=== PATIENT | female | born 1935 | race Caucasian/White ===

== ENCOUNTER 2017-11-03 11:44 | Inpatient (IN) ==
[2017-11-03] MEDS ORDERED: Pantoprazole Inj 40 MG Vial IV.PUSH ONE (12:10)
[2017-11-03] MEDS ORDERED: Sod Chloride 0.9% Inj 1,000 ML IV.SIG ONE ×2 (12:10→12:56)
--- NOTE | 2017-11-03 12:53 | ED ---
HPI General Chief Complaint: Altered Mental Status Stated Complaint: Medical Time Seen by Provider: 11/03/17 11:59 History of Present Illness HPI narrative: Patient presents to the emergency department for altered mental status. Family her son spoke to her this morning and she was complaining of shortness of breath. He called 911 and when EVAC arrived on the scene she was altered and confused in the back of her dressings covered in blood. Initially her vital signs showed sinus tach at 104, BP 126/100, she was noted to be pale and confused per EVAC. States that she said that she had difficulty finding her words and was feeling short of breath. In route they noted that she developed A. fib with RVR and questionable facial droop. Patient told them that she "lost a lot of blood in the toilet." She denies chest pain, shortness of breath, headache, but states chronic abdominal pain to me. She denies being on aspirin or a blood thinner. Related Data Home Medications Medication Instructions Recorded Confirmed No Known Home Medications 11/03/17 11/03/17 Allergies Allergy/AdvReac Type Severity Reaction Status Date / Time ANESTHESIA AdvReac Severe Sedation Uncoded 08/11/10 10:55 Review of Systems ROS: all other systems reviewed are negative [facility] Social History Social History Substance History: No History of Abuse Smoking Status: Former smoker Tobacco Type: Cigarettes How Often Do You Have a Drink Containing Alcohol: Monthly or less Recent Travel in [facility] within the Last 8 Weeks: No Recent Out of Country Travel within the Last 8 Weeks: No Immunization History Tetanus Immunization: Unsure Hx Influenza Vaccine This Season: Unable to Assess Exam Narrative Exam Narrative: GENERAL: No acute distress. SKIN: Focused skin assessment warm/dry. HEAD: Atraumatic. Normocephalic. EYES: Pupils equal and round. No scleral icterus. No injection or drainage. ENT: No nasal bleeding or discharge. Mucous membranes pink and moist. NECK: Trachea midline. No JVD. CARDIOVASCULAR: Irregular. No murmur appreciated. RESPIRATORY: No accessory muscle use. Clear to auscultation. Breath sounds equal bilaterally. GASTROINTESTINAL: Abdomen soft, diffusely tender, nondistended. Rectal: Bright red blood, Hemoccult positive MUSCULOSKELETAL: No obvious deformities. No clubbing. No cyanosis. No edema. Right lower extremity tender to palpation thigh area. NEUROLOGICAL: Awake and alert, oriented to person, place, but does not know the year but advises that Kasandra is president. No obvious cranial nerve deficits. Motor grossly within normal limits. Normal speech. Stroke scale of 2 (mild sensory loss left face, mild dysarthria PSYCHIATRIC: Appropriate mood and affect; insight and judgment normal. Course Initial Documented Vital Signs Temperature 97.3 F L 11/03/17 12:05 Pulse Rate 184 H 11/03/17 12:05 Respiratory Rate 31 H 11/03/17 12:05 Blood Pressure 122/75 11/03/17 12:05 Pulse Oximetry 100 11/03/17 12:05 Last Documented Vital Signs Temperature 97.3 F L 11/03/17 12:05 Pulse Rate 86 11/03/17 15:00 Respiratory Rate 12 11/03/17 15:00 Blood Pressure 180/81 H 11/03/17 15:00 Pulse Oximetry 100 11/03/17 15:00 Critical Care Time Critical Care Time: Yes Total Critical Care Time: 30 Attestation: Aggregate critical care time was 30 minutes. Time to perform other separately billable procedures was not included in the critical care time. My time did not include minutes spent treating any other patients simultaneously or on activities that did not directly contribute to the patient's treatment. The services I provided to this patient were to treat and/or prevent clinically significant deterioration that could result in: , respiratory failure, cardiac arrest, increased morbidity I provided critical care services requiring my management, as noted below: Chart data review, documentation time, medication orders and management, vital sign assessments/reviewing monitor data, ordering and reviewing lab tests, ordering and interpreting/reviewing x-rays and diagnostic studies, care of the patient and discussion of the patient with the admitting physicians. Medical Decision Making MDM Narrative Medical decision making narrative: Patient presents to the emergency department as GI bleed and altered mental status and atrial flutter with RVR placed on cardiac sonographer, continuous pulse ox, and IV access obtained liter IV normal saline 1L bolus x 2. Labs, EKG, chest x-ray, head and abdominal CT ordered. Additionally, patient given 40 mg IV Protonix and typed and screened. Patient was written for diltiazem, but heart rate spontaneously decreased to high 90s, low 100s without it. Labs: elevated d-dimer, decreased hgb/HCT, slight increase in wbc, slight increase in PT, decrease in PTT; elevated troponin, lactic acid, BNP CXR: CONCLUSION: 1. Mild patchy airspace disease in the left lower lung zone which may be projectional or reflect atelectasis. bilat LE u/s- Negative for DVT CTA abd/pelvis-CONCLUSION 1. I do not see etiology patient's diffuse abdominal pain. There are no inflammatory changes evident.2. Extensive vascular callus occasions are noted without evidence for ischemic bowel.3. There is no free fluid4. 4.8 cm left renal cyst5. Diverticulitis sigmoid colon without diverticulitis6. Moderate congestive failure CT head: CONCLUSION:1. 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 Stroke could be similar between 3 and 7 days in age.2. I have no prior studies for comparison. CTA chest: There is cardiomegaly with mild interstitial edema and trace left pleural effusion.There is abundant mediastinal fat. There is no adenopathy.There is no central pulmonary emboliThere is no axillary adenopathy. Upper pelvic contents are grossly unremarkable.CONCLUSION:1. Moderate congestive failure with no central pulmonary emboli ECHO: See ECHO results-The left ventricular systolic function is normal with an estimated ejection fraction in the range of 60-65%. 1326: GI environmental engineering assistant consulted. Start protonix gtt at 8mg/hr, keep NPO, type and screen Medical Screen Exam Complete: Yes Emergency Medical Condition: Yes Differential Diagnosis Differential Diagnosis: ACS, PE, diverticular bleed, upper GI bleed/lower GI bleed, sepsis, electrolyte abnormality, anemia Lab Data Result diagrams: 11/03/17 12:24 11/03/17 12:24 Lab Results 11/03/17 11/03/17 11/03/17 Range/Units 12:24 12:24 12:24 WBC 11.1 H (4.0-11.0) th/mm3 RBC 3.30 L (4.00-5.30) mil/mm3 Hgb 10.1 L (11.6-15.3) gm/dL Hct 30.0 L (35.0-46.0) % MCV 90.9 (80.0-100.0) fL MCH 30.8 (27.0-34.0) pg MCHC 33.8 (32.0-36.0) % RDW 14.5 (11.6-17.2) % Plt Count 208 (150-450) th/mm3 MPV 9.4 (7.0-11.0) fL Neut % (Auto) 89.9 H (16.0-70.0) % Lymph % (Auto) 7.1 L (9.0-44.0) % Todd % (Auto) 2.6 (0.0-8.0) % Eos % (Auto) 0.0 (0.0-4.0) % Baso % (Auto) 0.4 (0.0-2.0) % Neut # (Auto) 10.0 H (1.8-7.7) th/mm3 Lymph # (Auto) 0.8 L (1.0-4.8) th/mm3 Todd # (Auto) 0.3 (0.0-0.9) th/mm3 Eos # (Auto) 0.0 (0.0-0.4) th/mm3 Baso # (Auto) 0.0 (0.0-0.2) th/mm3 WBC Differential . Differential Comment Auto diff final PT 12.3 H (9.8-11.6) sec INR 1.2 Ratio APTT 19.2 L (24.3-30.1) sec D-Dimer Quant (PE/DVT) (0.00-0.50) mg/L FEU Sodium 148 H (136-145) meq/L Potassium 4.5 (3.5-5.1) meq/L Chloride 113 H (98-107) meq/L Carbon Dioxide 24.0 (21.0-32.0) meq/L Anion Gap 11 (5-15) meq/L BUN 46 H (7-18) mg/dL Creatinine 0.85 (0.50-1.00) mg/dL Estimated GFR 64 L (>89) mL/min Random Glucose 129 H (74-106) mg/dL Lactic Acid (0.4-2.0) mmol/L Calcium 8.1 L (8.5-10.1) mg/dL Magnesium 2.1 (1.5-2.5) mg/dL Total Bilirubin 0.4 (0.2-1.0) mg/dL AST 11 L (15-37) U/L ALT 13 (10-53) U/L Alkaline Phosphatase 46 (45-117) U/L Total Creatine Kinase 30 (26-192) U/L Troponin I 0.11 H (0.02-0.05) ng/mL B-Natriuretic Peptide (0-100) pg/mL Total Protein 5.7 L (6.4-8.2) g/dL Albumin 2.8 L (3.4-5.0) g/dL TSH 1.170 (0.358-3.740) uIU/mL Free T4 1.02 (0.76-1.46) ng/dL Blood Type Antibody Screen 11/03/17 11/03/17 11/03/17 Range/Units 12:24 12:24 12:24 WBC (4.0-11.0) th/mm3 RBC (4.00-5.30) mil/mm3 Hgb (11.6-15.3) gm/dL Hct (35.0-46.0) % MCV (80.0-100.0) fL MCH (27.0-34.0) pg MCHC (32.0-36.0) % RDW (11.6-17.2) % Plt Count (150-450) th/mm3 MPV (7.0-11.0) fL Neut % (Auto) (16.0-70.0) % Lymph % (Auto) (9.0-44.0) % Todd % (Auto) (0.0-8.0) % Eos % (Auto) (0.0-4.0) % Baso % (Auto) (0.0-2.0) % Neut # (Auto) (1.8-7.7) th/mm3 Lymph # (Auto) (1.0-4.8) th/mm3 Todd # (Auto) (0.0-0.9) th/mm3 Eos # (Auto) (0.0-0.4) th/mm3 Baso # (Auto) (0.0-0.2) th/mm3 WBC Differential Differential Comment PT (9.8-11.6) sec INR Ratio APTT (24.3-30.1) sec D-Dimer Quant (PE/DVT) (0.00-0.50) mg/L FEU Sodium (136-145) meq/L Potassium (3.5-5.1) meq/L Chloride (98-107) meq/L Carbon Dioxide (21.0-32.0) meq/L Anion Gap (5-15) meq/L BUN (7-18) mg/dL Creatinine (0.50-1.00) mg/dL Estimated GFR (>89) mL/min Random Glucose (74-106) mg/dL Lactic Acid 3.5 H (0.4-2.0) mmol/L Calcium (8.5-10.1) mg/dL Magnesium (1.5-2.5) mg/dL Total Bilirubin (0.2-1.0) mg/dL AST (15-37) U/L ALT (10-53) U/L Alkaline Phosphatase (45-117) U/L Total Creatine Kinase (26-192) U/L Troponin I (0.02-0.05) ng/mL B-Natriuretic Peptide 256 H (0-100) pg/mL Total Protein (6.4-8.2) g/dL Albumin (3.4-5.0) g/dL TSH (0.358-3.740) uIU/mL Free T4 (0.76-1.46) ng/dL Blood Type A Positive Antibody Screen Negative 11/03/17 Range/Units 12:24 WBC (4.0-11.0) th/mm3 RBC (4.00-5.30) mil/mm3 Hgb (11.6-15.3) gm/dL Hct (35.0-46.0) % MCV (80.0-100.0) fL MCH (27.0-34.0) pg MCHC (32.0-36.0) % RDW (11.6-17.2) % Plt Count (150-450) th/mm3 MPV (7.0-11.0) fL Neut % (Auto) (16.0-70.0) % Lymph % (Auto) (9.0-44.0) % Todd % (Auto) (0.0-8.0) % Eos % (Auto) (0.0-4.0) % Baso % (Auto) (0.0-2.0) % Neut # (Auto) (1.8-7.7) th/mm3 Lymph # (Auto) (1.0-4.8) th/mm3 Todd # (Auto) (0.0-0.9) th/mm3 Eos # (Auto) (0.0-0.4) th/mm3 Baso # (Auto) (0.0-0.2) th/mm3 WBC Differential Differential Comment PT (9.8-11.6) sec INR Ratio APTT (24.3-30.1) sec D-Dimer Quant (PE/DVT) 8.46 H (0.00-0.50) mg/L FEU Sodium (136-145) meq/L Potassium (3.5-5.1) meq/L Chloride (98-107) meq/L Carbon Dioxide (21.0-32.0) meq/L Anion Gap (5-15) meq/L BUN (7-18) mg/dL Creatinine (0.50-1.00) mg/dL Estimated GFR (>89) mL/min Random Glucose (74-106) mg/dL Lactic Acid (0.4-2.0) mmol/L Calcium (8.5-10.1) mg/dL Magnesium (1.5-2.5) mg/dL Total Bilirubin (0.2-1.0) mg/dL AST (15-37) U/L ALT (10-53) U/L Alkaline Phosphatase (45-117) U/L Total Creatine Kinase (26-192) U/L Troponin I (0.02-0.05) ng/mL B-Natriuretic Peptide (0-100) pg/mL Total Protein (6.4-8.2) g/dL Albumin (3.4-5.0) g/dL TSH (0.358-3.740) uIU/mL Free T4 (0.76-1.46) ng/dL Blood Type Antibody Screen Imaging Data Radiologist's impression: Chest X-Ray 11/03/17 12:08 CONCLUSION: 1. Mild patchy airspace disease in the left lower lung zone which may be projectional or reflect atelectasis. Head CT 11/03/17 12:08 CONCLUSION: 1. 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 Stroke could be similar between 3 and 7 days in age. 2. I have no prior studies for comparison. Venous Doppler Study 11/03/17 12:12 CONCLUSION: 1. The study is negative for bilateral lower extremity deep venous thrombosis. Chest CTA 11/03/17 13:37 CONCLUSION: 1. Moderate congestive failure with no central pulmonary emboli ECG Data Attestation: I personally reviewed and interpreted this ECG as follows: (Rate approximately 150, normal axis ST depression leads to, V3 through V6, T-wave inversion in lead aVL) Discharge Plan Discharge Disposition Patient Disposition: 30 Still Patient Discharge Condition Condition: Critical Discharge Details Diagnosis: Altered mental state, Lower GI bleed, Lactic acidosis, Atrial fibrillation with rapid ventricular response Physicians Team ED Provider: Marcelle Lozano Primary Care Provider: SRINIVAS, Attending Provider: Celeste Gordillo Other Providers: Aleksey Cortez ; Wilfred Vasquez Discharge Interventions Interventions: Vital Signs Last Done: 11/03/17 15:00 Status ED Status: Admitted Patient
[2017-11-03 12:58] LABS: Baso % (Auto) 0.4 % (0.0-2.0); Hemoglobin 10.1 gm/dL (11.6-15.3); Lymph # (Auto) 0.8 th/mm3 (1.0-4.8); Lymph % (Auto) 7.1 % (9.0-44.0); Mean Corpuscular HGB Conc 33.8 % (32.0-36.0); Mean Corpuscular Hemoglobin 30.8 pg (27.0-34.0); Mean Corpuscular Volume 90.9 fL (80.0-100.0); Mean Platelet Volume 9.4 fL (7.0-11.0); Mono # (Auto) 0.3 th/mm3 (0.0-0.9); Mono % (Auto) 2.6 % (0.0-8.0); Neut % (Auto) 89.9 % (16.0-70.0); Platelet Count 208 th/mm3 (150-450); Red Cell Distribution Width 14.5 % (11.6-17.2); White Blood Count 11.1 th/mm3 (4.0-11.0)
--- NOTE | 2017-11-03 13:05 | US ---
EXAM DATE: 11/03/2017 12:59 PM EDT AGE/SEX: 81 years / Female INDICATIONS: Bilateral leg swelling. CLINICAL DATA: This is the patient's initial encounter. Patient reports that signs and symptoms have been present for 1 month and indicates a pain score of 4/10. MEDICAL/SURGICAL HISTORY: . Cerebrovascular accident. Transient ischemic attack. . Hip replace ment. COMPARISON: No prior exams available for comparison. TECHNIQUE: Venous ultrasound of both lower extremities was performed from the inguinal ligament to t he proximal calf. Real-time, color Doppler and spectral tracing, compression and augmentation techni ques were used. FINDINGS: Right Leg: Normal compression of the deep venous system from the inguinal region to the proximal isaura f. No echogenic clot is seen. Normal response of the venous system to augmentation and respiration. Left Leg: Normal compression of the deep venous system from the inguinal region to the proximal calf . No echogenic clot is seen. Normal response of the venous system to augmentation and respiration. Other: None. CONCLUSION: 1. The study is negative for bilateral lower extremity deep venous thrombosis. Electronically signed by: Franki Dickey MD 11/03/2017 1:04 PM EDT
--- NOTE | 2017-11-03 13:05 | XR ---
EXAM DATE: 11/03/2017 12:31 PM EDT AGE/SEX: 81 years / Female INDICATIONS: Chest pain. Rectal bleeding. CLINICAL DATA: This is the patient's initial encounter. Patient reports that signs and symptoms have been present for 1 day and indicates a pain score of 3/10. MEDICAL/SURGICAL HISTORY: None. None. COMPARISON: [facility] – [place], CHEST SINGLE AP, 08/12/2010. . FINDINGS: Diffuse interstitial prominence with patchy airspace disease in the left lower lung zone. Cardiac med iastinal contours are stable given differences in technique. Osseous structures are intact. CONCLUSION: 1. Mild patchy airspace disease in the left lower lung zone which may be projectional or reflect ate lectasis. Electronically signed by: Fili Napoles MD 11/03/2017 1:04 PM EDT
[2017-11-03 13:17] LABS: Activated Partial Thrombo Time 19.2 sec (24.3-30.1); INR 1.2 Ratio; Prothrombin Time 12.3 sec (9.8-11.6)
[2017-11-03 13:30] LABS: Alanine Aminotransferase 13 U/L (10-53); Albumin 2.8 g/dL (3.4-5.0); Anion Gap 11 meq/L (5-15); Aspartate Aminotransferase 11 U/L (15-37); Blood Urea Nitrogen 46 mg/dL (7-18); Calcium 8.1 mg/dL (8.5-10.1); Chloride 113 meq/L (98-107); Glomerular Filtration Rate 64 mL/min (>89); Glucose,Random 129 mg/dL (74-106); Magnesium 2.1 mg/dL (1.5-2.5); Potassium 4.5 meq/L (3.5-5.1); Sodium 148 meq/L (136-145)
[2017-11-03 13:39] LABS: Alkaline Phosphatase 46 U/L (45-117); Free T4 (Free Thyroxine) 1.02 ng/dL (0.76-1.46); Total Protein 5.7 g/dL (6.4-8.2); Troponin I 0.11 ng/mL (0.02-0.05)
--- NOTE | 2017-11-03 13:58 | CT ---
EXAM DATE: 11/03/2017 1:51 PM EDT AGE/SEX: 81 years / Female INDICATIONS: Patient found confused and covered in blood and feces CLINICAL DATA: This is the patient's initial encounter. Patient reports that signs and symptoms have been present for 1 day and indicates a pain score of 3/10. MEDICAL/SURGICAL HISTORY: Cerebrovascular disease. None. RADIATION DOSE: 48.30 CTDI (mGy) COMPARISON: [facility] [place], CTA BRAIN W 3D RECON, 08/12/2010. . TECHNIQUE: CT of the head without contrast. Using automated exposure control and adjustment of the mA and/or kV according to patient size, radiation dose was kept as low as reasonably achievable to ob tain optimal diagnostic quality images. DICOM format image data is available electronically for revi ew and comparison. FINDINGS: Calcified mass is seen in the parafalcine region on the left. There is some edema in the left orbital frontal region. This edema extends into the head of the caudate. Right hemisphere is unremarkable. V entricular size is appropriate There are no extra-axial fluid collections appreciated. Posterior fossa appears normal. CONCLUSION: 1. 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 Stroke could be similar between 3 and 7 days in age. 2. I have no prior studies for comparison. Electronically signed by: Dayton Torres MD 11/03/2017 1:57 PM EDT
[2017-11-03 14:05] LABS: Creatine Kinase 30 U/L (26-192)
--- NOTE | 2017-11-03 14:13 | CT ---
EXAM DATE: 11/03/2017 2:10 PM EDT AGE/SEX: 81 years / Female INDICATIONS: Shortness of breath. CLINICAL DATA: This is the patient's initial encounter. Patient reports that signs and symptoms have been present for 1 day and indicates a pain score of Nonresponsive. MEDICAL/SURGICAL HISTORY: Stroke. Transient ischemic attack. None. RADIATION DOSE: 17.05 CTDI (mGy) COMPARISON: No prior exams available for comparison. TECHNIQUE: Volumetric scanning was performed using a multi-row detector CT scanner during bolus infu kristan of 85 ml Omnipaque 350 (iohexol) nonionic water-soluble contrast as a cumulative dose for multi ple exams. The data was post processed with a variety of visualization algorithms including full volu me maximum intensity projection and sliding thin slab reformation. Using automated exposure control a nd adjustment of the mA and/or kV according to patient size, radiation dose was kept as low as reason ably achievable to obtain optimal diagnostic quality images. DICOM format image data is available el ectronically for review and comparison. FINDINGS: There is cardiomegaly with mild interstitial edema and trace left pleural effusion. There is abundant mediastinal fat. There is no adenopathy. There is no central pulmonary emboli There is no axillary adenopathy. Upper pelvic contents are grossly unremarkable. CONCLUSION: 1. Moderate congestive failure with no central pulmonary emboli Electronically signed by: Dayton Torres MD 11/03/2017 2:12 PM EDT
--- NOTE | 2017-11-03 14:23 | CT ---
EXAM DATE: 11/03/2017 2:13 PM EDT AGE/SEX: 81 years / Female INDICATIONS: Diffuse abdomen pain today. CLINICAL DATA: This is the patient's initial encounter. Patient reports that signs and symptoms have been present for 1 day and indicates a pain score of Nonresponsive. MEDICAL/SURGICAL HISTORY: Stroke. Transient ischemic attack. None. ORAL CONTRAST: No oral contrast ingested. RADIATION DOSE: 12.40 CTDI (mGy) COMPARISON: No prior exams available for comparison. TECHNIQUE: Multiple contiguous axial images were obtained through the abdomen and pelvis following b olus infusion of 85 ml Omnipaque 350 (iohexol) nonionic water-soluble contrast as a cumulative dose for multiple exams. No oral contrast ingested. Using automated exposure control and adjustment of t he mA and/or kV according to patient size, radiation dose was kept as low as reasonably achievable to obtain optimal diagnostic quality images. DICOM format image data is available electronically for r eview and comparison. FINDINGS: Moderate interstitial edema is present with cardiomegaly and trace left pleural effusion. There is no pericardial effusion. The liver and gallbladder unremarkable Extensive vascular calcifications occasions are noted without evidence for ischemic bowel. . Pancreas and spleen appear normal Adrenal glands appear normal Right kidney: Symmetrical renal function without stone or mass Left kidney: 4.8 cm left renal cyst. There are no inflammatory changes in the mesentery The portion of the colon the abdomen appears unremarkable. In the pelvis there are scattered diverticuli in the sigmoid colon without inflammatory changes. Ther e is no free fluid. Bladder is unremarkable. There is no free air or free fluid. Review of bone windows reveals degenerative changes in the lower lumbar spine. Total hip arthroplasty present on the right. CONCLUSION 1. I do not see etiology patient's diffuse abdominal pain. There are no inflammatory changes evident . 2. Extensive vascular callus occasions are noted without evidence for ischemic bowel. 3. There is no free fluid 4. 4.8 cm left renal cyst 5. Diverticulitis sigmoid colon without diverticulitis 6. Moderate congestive failure Electronically signed by: Dayton Torres MD 11/03/2017 2:21 PM EDT
[2017-11-03] MEDS ORDERED: Pantoprazole Inj 80 MG in Sodium Chlor 0.9% Inj 100 ML IV.CONT SCH (15:00)
--- NOTE | 2017-11-03 15:09 | P.CONGI ---
History of Present Illness Consult date: 11/03/17 Consult reason: GI bleed Chief complaint: GI Bleed, AFIB with RVR, Elevated Lactic Acid History of Present Illness: Patient is an 81 yo female who presented to the ER today with complaint of shortness of breath, generalized weakness and rectal bleeding. Patient states she was feeling fine last evening and woke up at 0600 this morning feeling notably weak with bright red and dark rectal bleeding . Rectal bleeding associated with lower abdominal cramping and generalized abdominal tenderness. Per pts son, pt called him this am to report feeling weak and short of breath. Upon his arrival to her home, he noted blood on her clothing. Pt and family deny any previous hx of GI bleeding. Pt denies ever having had a colonoscopy or upper endoscopy. States she takes no RX medications and denies taking any OTC medications or ASA. pt denies taking any blood thinners. PT denies any known family hx of gastrointestinal cancers. 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 No more bleeding noted since admission. Hgb 10.1, Hct 30 which is baseline for patient. Patient denies nausea,vomiting or diarrhea. She endorses having constipation with hard stools intermittently over the last 3-4 months. Pt denies unintended weight loss. Patient denies difficulty swallowing or heartburn. Workup revealed elevated Troponin 0.11, BNP 256. On arrival to ER, pt was noted to be in Afib with RVR which resolved spontaneously. CT--> negative for Ischemic Colitis or Diverticulitis. <Ginna Toussaint - Last Filed: 11/03/17 21:51> Review of Systems All other systems reviewed negative except as stated in HPI <Ginna Toussaint - Last Filed: 11/03/17 21:51> PMFSH - Medical History Medical History: Medical History (Last Updated 11/03/17 @ 12:14 by Annmarie Borrero RN) CVA (cerebral vascular accident) TIA (transient ischemic attack) - Surgical History Surgical History: Surgical History (Last Updated 11/03/17 @ 12:14 by Annmarie Borrero RN) History of hip replacement <Aleksey Cortez - Last Filed: 11/03/17 16:21> - History History Provided By: Patient, Family Member - Medical History Medical History: Medical History (Last Reviewed 11/03/17 @ 16:03 by Salvador Real MD) CVA (cerebral vascular accident) TIA (transient ischemic attack) - Surgical History Surgical History: Surgical History (Last Reviewed 11/03/17 @ 16:04 by Salvador Real MD) History of hip replacement - Tobacco History Smoking Status: Former smoker Tobacco Type: Cigarettes - Alcohol History How Often Do You Have a Drink Containing Alcohol: Monthly or less - Substance Use History Substance History: No History of Abuse - Travel History Recent Travel in the [place] Within the Last 8 Weeks: No Recent Travel Out of the Country Within the Last 8 Weeks: No - Immunization History Tetanus Immunization: Unsure Hx Influenza Vaccine This Season: Unable to Assess <Ginna Toussaint - Last Filed: 11/03/17 21:51> Medications and Allergies Active Medications: Active Medications Acetaminophen (Tylenol) 650 mg PO Q6H PRN PRN Reason: PAIN 1-10 AND/OR FEVER >101F Albuterol (Duoneb Neb (Prn)) 1 ampul NEB Q2HR NEB PRN PRN Reason: WHEEZING Chlorhexidine Gluconate (Chlorhexidine 2% Cloth) 3 pack TOPICAL DAILY@0400 RICH Stop: 11/09/17 03:59 Chlorhexidine Gluconate (Chlorhexidine 2% Cloth) 3 pack TOPICAL DAILY@0400 PRN PRN Reason: Extra cloth needed Stop: 11/09/17 03:59 Pantoprazole Sodium 80 mg/ (Sodium Chloride) 100 mls @ 10 mls/hr IV.CONT CONT RICH Last Admin: 11/03/17 15:21 Dose: 10 mls/hr Sodium Chloride (Ns Inj) 1,000 mls @ 84 mls/hr IV.CONT .[id number] RICH Lactulose (Lactulose Liq) 30 ml PO DAILY PRN PRN Reason: SEVERE CONSITIPATION Pantoprazole Sodium (Protonix Inj) 40 mg IV.PUSH Q12H RICH Sodium Chloride (Ns Flush) 2 ml IV.FLUSH BID RICH Sodium Chloride (Ns Flush) 2 ml IV.FLUSH PRN PRN PRN Reason: FLUSH AFTER USING IV ACCESS <Aleksey Cortez - Last Filed: 11/03/17 16:21> Active Medications: Active Medications Pantoprazole Sodium 80 mg/ (Sodium Chloride) 100 mls @ 10 mls/hr IV.CONT CONT RICH <Ginna Toussaint - Last Filed: 11/03/17 21:51> Allergies Allergy/AdvReac Type Severity Reaction Status Date / Time ANESTHESIA AdvReac Severe Sedation Uncoded 08/11/10 10:55 Home Medications Medication Instructions Recorded Confirmed Type No Known Home Medications 11/03/17 11/03/17 History Exam Vital signs: Vital Signs 11/03/17 12:05 11/03/17 13:00 11/03/17 15:00 Temperature 97.3 F L Pulse Rate 184 H 88 86 Respiratory Rate 31 H 18 12 Blood Pressure 122/75 150/65 H 180/81 H Pulse Oximetry 100 100 100 Intake & Output 11/02/17 11/03/17 11/03/17 18:59 06:59 18:59 Output Total 600 / 600 Balance -600 / -600 Weight 54.431 kg Output: Urine 600 / 600 <Aleksey Cortez - Last Filed: 11/03/17 16:21> Vital signs: Vital Signs 11/03/17 12:05 11/03/17 13:00 Temperature 97.3 F L Pulse Rate 184 H 88 Respiratory Rate 31 H 18 Blood Pressure 122/75 150/65 H Pulse Oximetry 100 100 Intake & Output 11/02/17 11/03/17 11/03/17 18:59 06:59 18:59 Weight 54.431 kg - Constitutional no acute distress, mild distress, cooperative - Routine HEENT Exam Head: Present: normocephalic - Routine Respiratory Exam Present: CTA bilaterally - Routine Cardiovascular Exam Present: S1, S2 - Routine Abdominal Exam Present: soft, normoactive bowel sounds, tenderness. Absent: distended, guarding - Routine Extremities Exam Present: pulses intact. Absent: edema - Routine Skin Exam Present: dry, warm - Routine Neurological Exam Present: alert, oriented X3 <Ginna Toussaint - Last Filed: 11/03/17 21:51> Results - Labs CBC & Chem 7: 11/03/17 12:24 11/03/17 12:24 Labs: Laboratory Results - last 24 hr 11/03/17 11/03/17 11/03/17 12:24 12:24 12:24 WBC 11.1 H RBC 3.30 L Hgb 10.1 L Hct 30.0 L MCV 90.9 MCH 30.8 MCHC 33.8 RDW 14.5 Plt Count 208 MPV 9.4 Neut % (Auto) 89.9 H Lymph % (Auto) 7.1 L Steele % (Auto) 2.6 Eos % (Auto) 0.0 Baso % (Auto) 0.4 Neut # (Auto) 10.0 H Lymph # (Auto) 0.8 L Steele # (Auto) 0.3 Eos # (Auto) 0.0 Baso # (Auto) 0.0 WBC Differential . Differential Comment Auto diff final PT 12.3 H INR 1.2 APTT 19.2 L D-Dimer Quant (PE/DVT) Sodium 148 H Potassium 4.5 Chloride 113 H Carbon Dioxide 24.0 Anion Gap 11 BUN 46 H Creatinine 0.85 Estimated GFR 64 L Random Glucose 129 H Lactic Acid Calcium 8.1 L Magnesium 2.1 Total Bilirubin 0.4 AST 11 L ALT 13 Alkaline Phosphatase 46 Total Creatine Kinase 30 Troponin I 0.11 H B-Natriuretic Peptide Total Protein 5.7 L Albumin 2.8 L TSH 1.170 Free T4 1.02 Blood Type Antibody Screen 11/03/17 11/03/17 11/03/17 12:24 12:24 12:24 WBC RBC Hgb Hct MCV MCH MCHC RDW Plt Count MPV Neut % (Auto) Lymph % (Auto) Steele % (Auto) Eos % (Auto) Baso % (Auto) Neut # (Auto) Lymph # (Auto) Steele # (Auto) Eos # (Auto) Baso # (Auto) WBC Differential Differential Comment PT INR APTT D-Dimer Quant (PE/DVT) Sodium Potassium Chloride Carbon Dioxide Anion Gap BUN Creatinine Estimated GFR Random Glucose Lactic Acid 3.5 H Calcium Magnesium Total Bilirubin AST ALT Alkaline Phosphatase Total Creatine Kinase Troponin I B-Natriuretic Peptide 256 H Total Protein Albumin TSH Free T4 Blood Type A Positive Antibody Screen Negative 11/03/17 12:24 WBC RBC Hgb Hct MCV MCH MCHC RDW Plt Count MPV Neut % (Auto) Lymph % (Auto) Steele % (Auto) Eos % (Auto) Baso % (Auto) Neut # (Auto) Lymph # (Auto) Steele # (Auto) Eos # (Auto) Baso # (Auto) WBC Differential Differential Comment PT INR APTT D-Dimer Quant (PE/DVT) 8.46 H Sodium Potassium Chloride Carbon Dioxide Anion Gap BUN Creatinine Estimated GFR Random Glucose Lactic Acid Calcium Magnesium Total Bilirubin AST ALT Alkaline Phosphatase Total Creatine Kinase Troponin I B-Natriuretic Peptide Total Protein Albumin TSH Free T4 Blood Type Antibody Screen - Imaging Impressions Chest X-Ray 11/03/17 12:08 CONCLUSION: 1. Mild patchy airspace disease in the left lower lung zone which may be projectional or reflect atelectasis. Head CT 11/03/17 12:08 CONCLUSION: 1. 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 Stroke could be similar between 3 and 7 days in age. 2. I have no prior studies for comparison. Venous Doppler Study 11/03/17 12:12 CONCLUSION: 1. The study is negative for bilateral lower extremity deep venous thrombosis. Chest CTA 11/03/17 13:37 CONCLUSION: 1. Moderate congestive failure with no central pulmonary emboli <Aleksey Cortez - Last Filed: 11/03/17 16:21> - Labs CBC & Chem 7: 11/03/17 19:25 11/03/17 12:24 Labs: Laboratory Results - last 24 hr 11/03/17 11/03/17 11/03/17 12:24 12:24 12:24 WBC 11.1 H RBC 3.30 L Hgb 10.1 L Hct 30.0 L MCV 90.9 MCH 30.8 MCHC 33.8 RDW 14.5 Plt Count 208 MPV 9.4 Neut % (Auto) 89.9 H Lymph % (Auto) 7.1 L Steele % (Auto) 2.6 Eos % (Auto) 0.0 Baso % (Auto) 0.4 Neut # (Auto) 10.0 H Lymph # (Auto) 0.8 L Steele # (Auto) 0.3 Eos # (Auto) 0.0 Baso # (Auto) 0.0 WBC Differential . Differential Comment Auto diff final PT 12.3 H INR 1.2 APTT 19.2 L D-Dimer Quant (PE/DVT) Sodium 148 H Potassium 4.5 Chloride 113 H Carbon Dioxide 24.0 Anion Gap 11 BUN 46 H Creatinine 0.85 Estimated GFR 64 L Random Glucose 129 H Lactic Acid Calcium 8.1 L Magnesium 2.1 Total Bilirubin 0.4 AST 11 L ALT 13 Alkaline Phosphatase 46 Total Creatine Kinase 30 Troponin I 0.11 H B-Natriuretic Peptide Total Protein 5.7 L Albumin 2.8 L TSH 1.170 Free T4 1.02 Blood Type Antibody Screen 11/03/17 11/03/17 11/03/17 12:24 12:24 12:24 WBC RBC Hgb Hct MCV MCH MCHC RDW Plt Count MPV Neut % (Auto) Lymph % (Auto) Steele % (Auto) Eos % (Auto) Baso % (Auto) Neut # (Auto) Lymph # (Auto) Steele # (Auto) Eos # (Auto) Baso # (Auto) WBC Differential Differential Comment PT INR APTT D-Dimer Quant (PE/DVT) Sodium Potassium Chloride Carbon Dioxide Anion Gap BUN Creatinine Estimated GFR Random Glucose Lactic Acid 3.5 H Calcium Magnesium Total Bilirubin AST ALT Alkaline Phosphatase Total Creatine Kinase Troponin I B-Natriuretic Peptide 256 H Total Protein Albumin TSH Free T4 Blood Type A Positive Antibody Screen Negative 11/03/17 12:24 WBC RBC Hgb Hct MCV MCH MCHC RDW Plt Count MPV Neut % (Auto) Lymph % (Auto) Steele % (Auto) Eos % (Auto) Baso % (Auto) Neut # (Auto) Lymph # (Auto) Steele # (Auto) Eos # (Auto) Baso # (Auto) WBC Differential Differential Comment PT INR APTT D-Dimer Quant (PE/DVT) 8.46 H Sodium Potassium Chloride Carbon Dioxide Anion Gap BUN Creatinine Estimated GFR Random Glucose Lactic Acid Calcium Magnesium Total Bilirubin AST ALT Alkaline Phosphatase Total Creatine Kinase Troponin I B-Natriuretic Peptide Total Protein Albumin TSH Free T4 Blood Type Antibody Screen - Imaging Impressions Chest X-Ray 11/03/17 12:08 CONCLUSION: 1. Mild patchy airspace disease in the left lower lung zone which may be projectional or reflect atelectasis. Head CT 11/03/17 12:08 CONCLUSION: 1. 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 Stroke could be similar between 3 and 7 days in age. 2. I have no prior studies for comparison. Venous Doppler Study 11/03/17 12:12 CONCLUSION: 1. The study is negative for bilateral lower extremity deep venous thrombosis. Chest CTA 11/03/17 13:37 CONCLUSION: 1. Moderate congestive failure with no central pulmonary emboli Impressions Chest X-Ray 11/03/17 12:08 CONCLUSION: 1. Mild patchy airspace disease in the left lower lung zone which may be projectional or reflect atelectasis. Head CT 11/03/17 12:08 CONCLUSION: 1. 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 Stroke could be similar between 3 and 7 days in age. 2. I have no prior studies for comparison. Venous Doppler Study 11/03/17 12:12 CONCLUSION: 1. The study is negative for bilateral lower extremity deep venous thrombosis. Chest CTA 11/03/17 13:37 CONCLUSION: 1. Moderate congestive failure with no central pulmonary emboli Chest X-Ray 11/03/17 12:08 CONCLUSION: 1. Mild patchy airspace disease in the left lower lung zone which may be projectional or reflect atelectasis. Head CT 11/03/17 12:08 CONCLUSION: 1. 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 Stroke could be similar between 3 and 7 days in age. 2. I have no prior studies for comparison. Venous Doppler Study 11/03/17 12:12 CONCLUSION: 1. The study is negative for bilateral lower extremity deep venous thrombosis. Chest CTA 11/03/17 13:37 CONCLUSION: 1. Moderate congestive failure with no central pulmonary emboli <Ginna Toussaint - Last Filed: 11/03/17 21:51> Assessment and Plan - Plan Seen and examined with [employer]YOR, discussed egd/colonoscopy with pt. and family. At this point the pt. wants to hold off on kirsten invasive testting unless she continues to bleed. Understands the consequences including missed cancer and . Monitor labs, CT reviewed. Discussed with Dr Real. Will follow, thank you The exam, history, and the medical decision-making described in the above note were completed with the assistance of the mid-level provider. I reviewed and agree with the findings presented. I attest that I had a [id number] encounter with the patient on the same day, and personally performed and documented my assessment and findings in the medical record. <Aleksey Cotrez - Last Filed: 11/03/17 16:21> - Plan - Acute GI bleed-woke up at 0600 this morning feeling notably weak with bright red and dark rectal bleeding . Rectal bleeding associated with lower abdominal cramping and generalized abdominal tenderness. pt denies hx of GI bleeding in the past. Denies taking any blood thinners or Aspirin. Denies ever having had upper or lower endoscopy. Hgb 10.1, Hct 30 which is baseline for patient. Patient denies nausea,vomiting or diarrhea. She endorses having constipation with hard stools intermittently over the last 3-4 months. Pt denies unintended weight loss. Patient denies difficulty swallowing or heartburn. Workup revealed elevated Troponin 0.11, BNP 256. On arrival to ER, pt was noted to be in Afib with RVR which resolved spontaneously. CT abdomen and pelvis--> negative for Ischemic Colitis or Diverticulitis. - Elevated Troponin and BNP- Abnormal findings on EKG on arrival to ER. Pt noted to be in Afib with RVR. Afib resolved spontaneously. 11/03/17. Chest CT negative for pulmonary embolism. Doppler study negative for DVT - Hx of TIA per pts daughter 6-[address] head 11/03/17 1. 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 Stroke could be similar between 3 and 7 days in age. 2. I have no prior studies for comparison. Plan: Diet per attending EGD/ Colonoscopy once medically cleared and if pt agreeing currently, pt and family would like to hold off on invasive procedure Monitor H/H Transfuse as needed Notify GI for any active bleeding Continue PPI Further recommendations to follow This patient has been seen and examined by myself and Dr. Cortez and this note is written on his behalf. <Ginna Toussaint - Last Filed: 11/03/17 21:51>
[2017-11-03] MEDS ORDERED: Acetaminophen 325 MG Tablet PO PRN (15:23)
--- NOTE | 2017-11-03 16:04 | P.HPCC ---
History of Present Illness Service: Critical Care Primary Care Physician: UNKNOWN Chief Complaint: AMS, GIB History of Present Illness: Patient is an 81 year old female with past medical history significant for TIA, who was brought to the ER today with complaint of shortness of breath, altered mental status, abdominal pain and rectal bleeding. Apparently patient was feeling well yesterday, but today morning she was complaining of shortness of breath per her son. [facility] was called and patient was found to be altered with blood on her clothing. On route EMS noted that patient developed A. fib with RVR and questionable facial droop. ER workup for acute stroke was essentially negative. 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 Stool was grossly positive for blood in the ED. Hemoglobin came back at 10.1. CMP showed BUN 47/ creat 0.85. CT abdomen pelvis did not show any evidence of acute ischemic colitis or diverticulitis. Was also noted to have lactic acid was elevated at 3.5. Patient did received 2 L normal saline bolus, and was placed on Protonix infusion per GI recommendation I evaluated the patient in the ED. she is lying in the bed speech is slightly slurred but daughter at the bedside states this is chronic. No [place] bleeding noted at this time. I discussed with Dr. Moody. Patient is refusing EGD/ colonoscopy at this time. I discussed the possibility of ischemic colitis versus diverticulitis. Patient wants to wait 24 hours and then reassess the need for endoscopy - Diagnosis (1) Altered mental state (2) Lower GI bleed (3) Lactic acidosis (4) Atrial fibrillation with rapid ventricular response Inpatient Certification: I certify that the inpatient services were ordered in accordance with Medicare regulations governing the order. This includes certification that hospital inpatient services are reasonable and necessary and in the case of services not specified as inpatient-only under 42 CFR 419.22(n), that they are appropriately provided as inpatient services in accordance to with the 2-midnight benchmark under 43 CFR 412.3(e) Estimated Total Length of Stay (Days): 5 Plans for Post Hospital Care: Not yet determined Review of Systems All other systems reviewed negative except as stated in HPI PMFSH - History History Provided By: Patient, Family Member - Medical History Medical History: Medical History (Last Reviewed 11/03/17 @ 16:03 by Salvador Real MD) CVA (cerebral vascular accident) TIA (transient ischemic attack) - Surgical History Surgical History: Surgical History (Last Reviewed 11/03/17 @ 16:04 by Salvador Real MD) History of hip replacement - Tobacco History Smoking Status: Former smoker Tobacco Type: Cigarettes - Alcohol History How Often Do You Have a Drink Containing Alcohol: Monthly or less - Substance Use History Substance History: No History of Abuse - Travel History Recent Travel in the [place] Within the Last 8 Weeks: No Recent Travel Out of the Country Within the Last 8 Weeks: No - Immunization History Tetanus Immunization: Unsure Hx Influenza Vaccine This Season: Unable to Assess Medications and Allergies Active Medications: Active Medications Acetaminophen (Tylenol) 650 mg PO Q6H PRN PRN Reason: PAIN 1-10 AND/OR FEVER >101F Albuterol (Duoneb Neb (Prn)) 1 ampul NEB Q2HR NEB PRN PRN Reason: WHEEZING Chlorhexidine Gluconate (Chlorhexidine 2% Cloth) 3 pack TOPICAL DAILY@0400 RICH Stop: 11/09/17 03:59 Chlorhexidine Gluconate (Chlorhexidine 2% Cloth) 3 pack TOPICAL DAILY@0400 PRN PRN Reason: Extra cloth needed Stop: 11/09/17 03:59 Pantoprazole Sodium 80 mg/ (Sodium Chloride) 100 mls @ 10 mls/hr IV.CONT CONT RICH Last Admin: 11/03/17 15:21 Dose: 10 mls/hr Sodium Chloride (Ns Inj) 1,000 mls @ 84 mls/hr IV.CONT .[id number] RICH Lactulose (Lactulose Liq) 30 ml PO DAILY PRN PRN Reason: SEVERE CONSITIPATION Pantoprazole Sodium (Protonix Inj) 40 mg IV.PUSH Q12H RICH Sodium Chloride (Ns Flush) 2 ml IV.FLUSH BID RICH Sodium Chloride (Ns Flush) 2 ml IV.FLUSH PRN PRN PRN Reason: FLUSH AFTER USING IV ACCESS Allergies Allergy/AdvReac Type Severity Reaction Status Date / Time ANESTHESIA AdvReac Severe Sedation Uncoded 08/11/10 10:55 Home Medications Medication Instructions Recorded Confirmed Type No Known Home Medications 11/03/17 11/03/17 History Results - Labs CBC & Chem 7: 11/03/17 12:24 11/03/17 12:24 Labs: Short CBC 11/03/17 Range/Units 12:24 WBC 11.1 H (4.0-11.0) th/mm3 Hgb 10.1 L (11.6-15.3) gm/dL Hct 30.0 L (35.0-46.0) % Plt Count 208 (150-450) th/mm3 BMP 11/03/17 12:24 Sodium 148 H Potassium 4.5 Chloride 113 H Carbon Dioxide 24.0 BUN 46 H Creatinine 0.85 Calcium 8.1 L Cardiac Enzymes 11/03/17 Range/Units 12:24 Total Creatine Kinase 30 (26-192) U/L Troponin I 0.11 H (0.02-0.05) ng/mL Liver Function 11/03/17 Range/Units 12:24 Total Bilirubin 0.4 (0.2-1.0) mg/dL AST 11 L (15-37) U/L ALT 13 (10-53) U/L Alkaline Phosphatase 46 (45-117) U/L Albumin 2.8 L (3.4-5.0) g/dL - Imaging Impressions Chest X-Ray 11/03/17 12:08 CONCLUSION: 1. Mild patchy airspace disease in the left lower lung zone which may be projectional or reflect atelectasis. Head CT 11/03/17 12:08 CONCLUSION: 1. 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 Stroke could be similar between 3 and 7 days in age. 2. I have no prior studies for comparison. Venous Doppler Study 11/03/17 12:12 CONCLUSION: 1. The study is negative for bilateral lower extremity deep venous thrombosis. Chest CTA 11/03/17 13:37 CONCLUSION: 1. Moderate congestive failure with no central pulmonary emboli Exam Vital signs: Vital Signs 11/03/17 12:05 11/03/17 13:00 11/03/17 15:00 Temperature 97.3 F L Pulse Rate 184 H 88 86 Respiratory Rate 31 H 18 12 Blood Pressure 122/75 150/65 H 180/81 H Pulse Oximetry 100 100 100 Intake & Output 11/02/17 11/03/17 11/03/17 18:59 06:59 18:59 Output Total 600 / 600 Balance -600 / -600 Weight 54.431 kg Output: Urine 600 / 600 Narrative: - Constitutional Mild distress,cooperative, lying in ED gurney - Routine HEENT Exam Head: normocephalic, pallor + - Routine Respiratory Exam Air entry equal bilaterally, few basilar crackles - Routine Cardiovascular Exam S1, S2 normal. Grade 1 systolic murmur LSB - Routine Abdominal Exam Soft, diffuse tenderness. No distention, guarding Extremities Exam Pulses intact. 1+ edema RLE - Routine Skin Exam Dry, warm - Routine Neurological Exam Present: alert, oriented X3. Appears to have chronic 4/5 power RUE and RLE Septic Shock Reassessment Septic shock perfusion: reassessment completed Caprini VTE Risk Assessment Caprini VTE Risk Assessment: Moderate/High Risk (score >= 2) Caprini Risk Assessment Model: Point Value = 1 Point Value = 2 Point Value = 3 Point Value = 5 Age 41-60 Minor surgery BMI > 25 kg/m2 Swollen legs Varicose veins or History of unexplained or recurrent spontaneous Oral contraceptives or hormone replacement Sepsis (< 1 month) Serious lung disease, including pneumonia (< 1 month) Abnormal pulmonary function Acute myocardial infarction Congestive heart failure (< 1 month) History of inflammatory bowel disease Medical patient at bed rest Age 61-74 Arthroscopic surgery Major open surgery (> 45 min) Laparoscopic surgery (> 45 min) Malignancy Confined to bed (> 72 hours) Immobilizing plaster cast Central venous access Age >= 75 History of VTE Family history of VTE Factor V Leiden Prothrombin [id number] Lupus anticoagulant Anticardiolipin antibodies Elevated serum homocysteine Heparin-induced thrombocytopenia Other congenital or acquired thrombophilia Stroke (< 1 month) Elective arthroplasty Hip, pelvis, or leg fracture Acute spinal cord injury (< 1 month) Prophylaxis Regimen: Total Risk Factor Score Risk Level Prophylaxis Regimen 0-1 Low Early ambulation 2 Moderate Order ONE of the following: *Sequential Compression Device (SCD) *Heparin 5000 units SQ BID 3-4 Higher Order ONE of the following medications: *Heparin 5000 units SQ TID *Enoxaparin/Lovenox 40 mg SQ daily (WT < 150 kg, CrCl > 30 mL/min) *Enoxaparin/Lovenox 30 mg SQ daily (WT < 150 kg, CrCl > 10-29 mL/min) *Enoxaparin/Lovenox 30 mg SQ BID (WT < 150 kg, CrCl > 30 mL/min) AND/OR *Sequential Compression Device (SCD) 5 or more Highest Order ONE of the following medications: *Heparin 5000 units SQ TID (Preferred with Epidurals) *Enoxaparin/Lovenox 40 mg SQ daily (WT < 150 kg, CrCl > 30 mL/min) *Enoxaparin/Lovenox 30 mg SQ daily (WT < 150 kg, CrCl > 10-29 mL/min) *Enoxaparin/Lovenox 30 mg SQ BID (WT < 150 kg, CrCl > 30 mL/min) AND *Sequential Compression Device (SCD) Assessment and Plan - Problem List (1) Altered mental state Code(s): R41.82 - Altered mental status, unspecified Status: Acute (2) Lower GI bleed Code(s): K92.2 - Gastrointestinal hemorrhage, unspecified Status: Acute (3) Lactic acidosis Code(s): E87.2 - Acidosis Status: Acute (4) Atrial fibrillation with rapid ventricular response Code(s): I48.91 - Unspecified atrial fibrillation Status: Acute - Assessment and Plan Plan: NEURO: Altered mental status History of previous stroke/TIA -CT head: Old meningioma parafalcine region on the left with subacute stroke -Check MRI of the brain, neurology consult if indicated -Continue to use aspirin at this time due to lower GI bleed RESP: Respiratory insufficiency -DuoNeb every 6 hours PRN -Chest x-ray did show evidence of pulmonary vascular congestion but clinically patient is not shortness of breath -CTA negative for PE CV: Atrial fibrillation with RVR -Normal saline IV fluids 2L bolus and 84 ml per hour -Check 2d echo, serial troponin -Currently sinus rhythm, rate control with beta-blockers if needed -Trend lactic acid GI: Lower GI bleed -N.p.o., IV Protonix infusion -CT abdomen and pelvis do not show any evidence of diverticulitis or ischemic colitis -Gastroenterology consulted, patient is refusing endoscopy at this time -Empiric Rocephin added : Acute kidney insufficiency -Monitor renal function closely. Murray catheter. -Fluid resuscitation as above ID: Probable sepsis -Antibiotics-Rocephin added -F/u Blood urine cultures, UA HEME: Anemia -Monitor CBC, coags -Type and screen 2 units PRBC ENDO: -Electrolyte replacement per protocol -Sliding scale insulin if needed PROPH: -Bilateral lower extremity SCDs. Chemical DVT prophylaxis is contraindicated at this time due to GI bleed -Continue IV Protonix infusion LINES: -Utilize peripheral IVs, central line if needed CC time 35 min Code Status: Full Discussed Condition With: Dr. Crum
[2017-11-03] MEDS ORDERED: Pantoprazole Inj 40 MG Vial IV.PUSH SCH (17:00)
[2017-11-03] MEDS ORDERED: Potassium Phosphate Inj 30 MMOL in Sodium Chlor 0.9% Inj 250 ML IV.SIG PRN (17:04)
[2017-11-03] MEDS ORDERED: Potassium Chloride 25 MEQ Effervescent Tablet PO PRN (17:04)
[2017-11-03] MEDS ORDERED: Sodium Phosphate Inj 30 MMOL in Sodium Chlor 0.9% Inj 250 ML IV.SIG PRN (17:04)
[2017-11-03] MEDS ORDERED: Potassium Chlor 40 mEq Premix 40 MEQ/100 ML PIGGYBACK IV.SIG PRN ×2 (17:04)
[2017-11-03] MEDS ORDERED: Magnesium Oxide 400 MG Tablet PO PRN (17:04)
[2017-11-03] MEDS ORDERED: Magnesium Sulfate Inj 4 GM in Sodium Chlor 0.9% Inj 92 ML IV.SIG PRN (17:04)
[2017-11-03] MEDS ORDERED: Potassium Phosphate 500 MG Soluble Tablet PO PRN ×2 (17:04)
[2017-11-03] MEDS ORDERED: Potassium Chlor 20 mEq Premix 20 MEQ/100 ML PIGGYBACK IV.SIG PRN ×2 (17:04)
[2017-11-03] MEDS ORDERED: Magnesium Sulfate Inj 2 GM in Sodium Chlor 0.9% Inj 96 ML IV.SIG PRN (17:04)
--- NOTE | 2017-11-03 17:07 | ECHRPT ---
Indication: ATRIAL FIB/FLUTTER CONCLUSIONS Normal left ventricular size. Mild concentric left ventricular hypertrophy. Normal left ventricular systolic function with an ejection fraction of 60-65%. [id number] mitral valve regurgitation. Mild mitral annular calcification. Aortic valve sclerosis is present. Mild aortic valve regurgitation. There is mild tricuspid valve regurgitation. The estimated pulmonary arterial pressure is 46 mmHg. BP: / HR: Rhythm: Atrial fibrillation, Atrial flut ter MEASUREMENTS (Male / Female) Normal Values Technical Quality:Fair 2D ECHO LV Diastolic Diameter PLAX 3.6 cm 4.2 - 5.9 / 3.9 - 5.3 cm LV Systolic Diameter PLAX 2.5 cm IVS Diastolic Thickness 1.1 cm 0.6 - 1.0 / 0.6 - 0.9 cm LVPW Diastolic Thickness 1.1 cm 0.6 - 1.0 / 0.6 - 0.9 cm LV Relative Wall Thickness 0.6 RV Internal Dim ED PLAX 2.0 cm LVOT Diameter 2.0 cm LA Systolic Diameter LX 2.7 cm 3.0 - 4.0 / 2.7 - 3.8 cm M-MODE AV Cusp Separation MM 0.9 cm DOPPLER AV Peak Velocity 212.5 cm/s AV Peak Gradient 18.1 mmHg AI Peak Velocity 415.0 cm/s AI Peak Gradient 68.9 mmHg AI Pressure Half Time 529.0 ms LVOT Peak Velocity 112.0 cm/s LVOT Peak Gradient 5.0 mmHg AV Area Cont Eq pk 1.7 cm Mitral E Point Velocity 91.8 cm/s Mitral A Point Velocity 107.0 cm/s Mitral E to A Ratio 0.9 LV E' Lateral Velocity 8.0 cm/s Mitral E to LV E' Lateral Ratio 11.5 LV E' Septal Velocity 5.9 cm/s Mitral E to LV E' Septal Ratio 15.7 TV Peak Velocity 260.0 cm/s Right Atrial Pressure 10.0 mmHg PV Peak Velocity 113.0 cm/s PV Peak Gradient 5.1 mmHg FINDINGS LEFT VENTRICLE Normal left ventricular size. Mild concentric left ventricular hypertrophy. The left ventricular systolic function is normal with an estimated ejection fraction in the range of 60-65%. RIGHT VENTRICLE Normal right ventricular size and systolic function. LEFT ATRIUM The left atrial size is normal. RIGHT ATRIUM The right atrial size is normal. ATRIAL SEPTUM No atrial level shunt is demonstrated by color flow Doppler interrogation. AORTA The aortic root and proximal ascending aorta are normal in size on limited imaging. MITRAL VALVE [id number] mitral valve regurgitation. Mild mitral annular calcification. AORTIC VALVE Aortic valve sclerosis is present. Mild aortic valve regurgitation. TRICUSPID VALVE There is mild tricuspid valve regurgitation. The estimated pulmonary arterial pressure is 46 mmHg. PULMONARY VALVE No pulmonary valve regurgitation or stenosis. VESSELS The inferior vena cava is normal in size. PERICARDIUM No pericardial effusion. Lee Ann Macdonald MD, FACC (Electronically Signed) Final Date:03 November 2017 17:06
[2017-11-03] MEDS ORDERED: Metoprolol Inj 5 MG/5 ML Vial IV.PUSH PRN (17:09)
[2017-11-03 18:02] LABS: Bilirubin,Urine Negative (Negative); Clarity,Urine Clear (Clear); Color,Urine Straw (Yellw/Straw); Glucose,Urine (UA) Negative (Negative); Leukocyte Esterase,Urine Negative (Negative); Nitrite,Urine Negative (Negative); Specific Gravity,Urine 1.032 (1.002-1.035); Squamous Epithelial Cell,Urine <1 /hpf (0-5)
[2017-11-03] MEDS: Sod Chloride 0.9% Inj 1,000 ML IV.CONT SCH (19:30)
[2017-11-03 19:32] LABS: Hematocrit 25.9 % (35.0-46.0); Hemoglobin 8.7 gm/dL (11.6-15.3)
[2017-11-03] MEDS ORDERED: Gadobutrol PF 7.5 MMOL/7.5 ML Vial (for RAD) IV.SIG ONE (21:57)
--- NOTE | 2017-11-03 22:34 | MR ---
EXAM DATE: 11/03/2017 10:05 PM EDT AGE/SEX: 81 years / Female INDICATIONS: CVA. Altered mental status. CLINICAL DATA: This is the patient's initial encounter. Patient reports that signs and symptoms have been present for 1 day and indicates a pain score of 0/10. MEDICAL/SURGICAL HISTORY: Hypertension. Hysterectomy. Right hip. COMPARISON: [facility] [place], MRI BRAIN W/O CONTRAST, 08/14/2010. [facility] [place], CT HEAD W/O CONTRAST, 11/03/2017. [facility] [place], MRA BRAIN W/O CONTRAST, 08/14/2010. . TECHNIQUE: Multiplanar, multisequence examination of the brain was performed without and with 5.4 ml Gadavist (gadobutrol) contrast as a single exam dose. FINDINGS: Cerebrum: There is a extra-axial mass seen in the anterior medial left frontal region abutting the a nterior aspect of the falx. This mass measures 2.4 x 1.8 x 2.6 cm. It homogeneously enhances and is t hought to represent a meningioma. It was present on a prior study from 2010. There is increased signa l seen in the left frontal white matter. There is areas of prior infarction seen at the left external capsule and left caudate region. The ventricles are normal for age. No evidence of midline shift, hemorrhage or acute infarction. No extraaxial fluid collections are seen. The pituitary gland and s uprasellar cistern are normal in configuration. White Matter: There is mild increased signal seen in the periventricular white matter Posterior Fossa: The cerebellum and brainstem are intact. The 4th ventricle is midline. The cerebel lopontine angle is unremarkable. The cerebellar tonsils are normal in position. Diffusion Imaging: No focal areas of restricted diffusion are seen. No evidence of acute infarction . Extracranial: The visualized portions of the orbits and paranasal sinuses are unremarkable. CONCLUSION: 1. Persistent extra-axial mass in the anterior inferior medial left frontal region thought to repres ent a meningioma measuring up to 2.6 cm. There is increased signal seen in the adjacent left frontal white matter. Mass effect on the ventricle and cortical sulci is not seen suggesting this could be re lated to underlying gliosis versus edema without significant effacement of the cortical sulci or mass effect on the left lateral ventricle. 2. Suspected areas of prior infarction at the left caudate and left external capsule region. 3. Mild periventricular small vessel ischemic change in the white matter. Electronically signed by: Farhan Bates MD 11/03/2017 10:33 PM EDT
[2017-11-03] MEDS ORDERED: niCARdipine Inj 25 MG in Sodium Chlor 0.9% Inj 240 ML IV.CONT PRN (23:48)
[2017-11-04] MEDS: Labetalol HCl Inj 100 MG/20 ML Vial IV.PUSH PRN ×5 (00:15→18:46)
[2017-11-04] MEDS ORDERED: Pantoprazole Inj 80 MG in Sodium Chlor 0.9% Inj 100 ML IV.CONT SCH (00:30)
[2017-11-04 03:27] LABS: Hematocrit 24.9 % (35.0-46.0); Hemoglobin 8.4 gm/dL (11.6-15.3)
[2017-11-04 03:29] LABS: INR 1.2 Ratio; Prothrombin Time 12.6 sec (9.8-11.6)
[2017-11-04 03:35] LABS: Alanine Aminotransferase 11 U/L (10-53); Albumin 2.8 g/dL (3.4-5.0); Alkaline Phosphatase 41 U/L (45-117); Anion Gap 10 meq/L (5-15); Aspartate Aminotransferase 16 U/L (15-37); Blood Urea Nitrogen 23 mg/dL (7-18); Carbon Dioxide 24.3 meq/L (21.0-32.0); Chloride 117 meq/L (98-107); Glomerular Filtration Rate Greater Than 89 mL/min (>89); Glucose,Random 79 mg/dL (74-106); Magnesium 1.9 mg/dL (1.5-2.5); Phosphorus 2.2 mg/dL (2.5-4.9); Potassium 3.8 meq/L (3.5-5.1); Sodium 151 meq/L (136-145); Total Protein 5.6 g/dL (6.4-8.2)
[2017-11-04 03:44] LABS: Baso # (Auto) 0.1 th/mm3 (0.0-0.2); Baso % (Auto) 0.9 % (0.0-2.0); Eos % (Auto) 0.4 % (0.0-4.0); Hematocrit 24.7 % (35.0-46.0); Hemoglobin 8.5 gm/dL (11.6-15.3); Lymph # (Auto) 1.8 th/mm3 (1.0-4.8); Lymph % (Auto) 24.7 % (9.0-44.0); Mean Corpuscular HGB Conc 34.4 % (32.0-36.0); Mean Corpuscular Hemoglobin 30.8 pg (27.0-34.0); Mean Corpuscular Volume 89.4 fL (80.0-100.0); Mono # (Auto) 0.4 th/mm3 (0.0-0.9); Neut # (Auto) 5.1 th/mm3 (1.8-7.7); Platelet Count 162 th/mm3 (150-450); Red Blood Count 2.76 mil/mm3 (4.00-5.30); Red Cell Distribution Width 13.9 % (11.6-17.2); White Blood Count 7.4 th/mm3 (4.0-11.0)
[2017-11-04] MEDS ORDERED: Chlorhexidine Gluconate 2% 1 Pack (2 Cloths) TOPICAL PRN (04:00)
[2017-11-04] MEDS: Chlorhexidine Gluconate 2% 1 Pack (2 Cloths) TOPICAL SCH (05:26)
[2017-11-04] MEDS: Sod Chloride 0.9% Inj 1,000 ML IV.CONT SCH ×3 (08:48→22:25)
--- NOTE | 2017-11-04 10:11 | P.PNIM ---
Subjective Interval history: f/u; GI bleed in no acute distress. denies abdominal pain, nausea. had some more rectal bleed earlier today. she says ' I just want to .' d/w the daughter and the RN at the bedside. Physical Exam Vital signs: Vital Signs 11/03/17 12:05 11/03/17 13:00 11/03/17 15:00 Temperature 97.3 F L Pulse Rate 184 H 88 86 Respiratory Rate 31 H 18 12 Blood Pressure 122/75 150/65 H 180/81 H Pulse Oximetry 100 100 100 11/03/17 19:29 11/03/17 20:47 11/03/17 22:00 Temperature 98.2 F Pulse Rate 87 84 80 Respiratory Rate 17 18 Blood Pressure 162/70 H 164/73 H Pulse Oximetry 98 98 11/04/17 00:00 11/04/17 04:00 Temperature 99.3 F 99.3 F Pulse Rate 90 68 Respiratory Rate 18 12 Blood Pressure 165/72 H 154/70 H Pulse Oximetry 97 98 Intake & Output 11/03/17 11/04/17 11/04/17 18:59 06:59 18:59 Intake Total 3200 / 3200 Output Total 600 / 600 100 / 100 Balance -600 / -600 3100 / 3100 Weight 54.431 kg 57.3 kg Intake: IV 3200 / 3200 Protonix Inj 80 MG In NS Inj 100 / 100 100 ML @ 10 mls/hr IV.CONT CONT RICH Rx#:[id number] NS Inj 1,000 ML @ 84 mls/hr IV. 1000 / 1000 CONT .[id number] RICH Rx#:[id number] NS Inj 1,000 ML @ Wide Open IV. 1999 / 1999 SIG BOLUS ONE Rx#:[id number] Rocephin Inj 1,000 MG In NS Inj 100 / 100 100 ML @ 200 mls/hr IV.SIG Q24H RICH Rx#:[id number] Output: Urine 600 / 600 100 / 100 Other: # Incontinent Voids 3 Weight On Admission 57.3 kg - Constitutional no acute distress - Routine Respiratory Exam Present: CTA bilaterally - Routine Cardiovascular Exam Present: RRR - Routine Abdominal Exam Present: soft - Routine Extremities Exam Comments: no pedal edema. - Routine Neurological Exam Present: alert, oriented X3 Results - Labs CBC & Chem 7: 11/04/17 03:00 11/04/17 03:00 Laboratory Results - last 24 hr 11/03/17 11/03/17 11/03/17 12:24 12:24 12:24 WBC 11.1 H RBC 3.30 L Hgb 10.1 L Hct 30.0 L MCV 90.9 MCH 30.8 MCHC 33.8 RDW 14.5 Plt Count 208 MPV 9.4 Neut % (Auto) 89.9 H Lymph % (Auto) 7.1 L Emm[place] % (Auto) 2.6 Eos % (Auto) 0.0 Baso % (Auto) 0.4 Neut # (Auto) 10.0 H Lymph # (Auto) 0.8 L Emmet # (Auto) 0.3 Eos # (Auto) 0.0 Baso # (Auto) 0.0 WBC Differential . Differential Comment Auto diff final PT 12.3 H INR 1.2 APTT 19.2 L D-Dimer Quant (PE/DVT) Sodium 148 H Potassium 4.5 Chloride 113 H Carbon Dioxide 24.0 Anion Gap 11 BUN 46 H Creatinine 0.85 Estimated GFR 64 L Random Glucose 129 H Lactic Acid Calcium 8.1 L Phosphorus Magnesium 2.1 Total Bilirubin 0.4 AST 11 L ALT 13 Alkaline Phosphatase 46 Total Creatine Kinase 30 Troponin I 0.11 H B-Natriuretic Peptide Total Protein 5.7 L Albumin 2.8 L TSH 1.170 Free T4 1.02 Urine Color Urine Clarity Urine pH Ur Specific [place] Urine Protein Urine Glucose (UA) Urine Ketones Urine Occult Blood Urine Nitrate Urine Bilirubin Urine Urobilinogen Ur Leukocyte Esterase Urine RBC Urine WBC Ur Squamous Epith Cells Micro UA Comment Ur Microscopic Review Urine Culture Comments Nasal Screen MRSA (PCR) Blood Type Antibody Screen 11/03/17 11/03/17 11/03/17 12:24 12:24 12:24 WBC RBC Hgb Hct MCV MCH MCHC RDW Plt Count MPV Neut % (Auto) Lymph % (Auto) Emmet % (Auto) Eos % (Auto) Baso % (Auto) Neut # (Auto) Lymph # (Auto) Emmet # (Auto) Eos # (Auto) Baso # (Auto) WBC Differential Differential Comment PT INR APTT D-Dimer Quant (PE/DVT) Sodium Potassium Chloride Carbon Dioxide Anion Gap BUN Creatinine Estimated GFR Random Glucose Lactic Acid 3.5 H Calcium Phosphorus Magnesium Total Bilirubin AST ALT Alkaline Phosphatase Total Creatine Kinase Troponin I B-Natriuretic Peptide 256 H Total Protein Albumin TSH Free T4 Urine Color Urine Clarity Urine pH Ur Specific [place] Urine Protein Urine Glucose (UA) Urine Ketones Urine Occult Blood Urine Nitrate Urine Bilirubin Urine Urobilinogen Ur Leukocyte Esterase Urine RBC Urine WBC Ur Squamous Epith Cells Micro UA Comment Ur Microscopic Review Urine Culture Comments Nasal Screen MRSA (PCR) Blood Type A Positive Antibody Screen Negative 11/03/17 11/03/17 11/03/17 12:24 17:28 19:25 WBC RBC Hgb 8.7 L Hct 25.9 L MCV MCH MCHC RDW Plt Count MPV Neut % (Auto) Lymph % (Auto) Emmet % (Auto) Eos % (Auto) Baso % (Auto) Neut # (Auto) Lymph # (Auto) Emmet # (Auto) Eos # (Auto) Baso # (Auto) WBC Differential Differential Comment PT INR APTT D-Dimer Quant (PE/DVT) 8.46 H Sodium Potassium Chloride Carbon Dioxide Anion Gap BUN Creatinine Estimated GFR Random Glucose Lactic Acid Calcium Phosphorus Magnesium Total Bilirubin AST ALT Alkaline Phosphatase Total Creatine Kinase Troponin I B-Natriuretic Peptide Total Protein Albumin TSH Free T4 Urine Color Straw Urine Clarity Clear Urine pH 5.0 Ur Specific [place] 1.032 Urine Protein Negative Urine Glucose (UA) Negative Urine Ketones Trace H Urine Occult Blood Moderate H Urine Nitrate Negative Urine Bilirubin Negative Urine Urobilinogen Less than 2 Ur Leukocyte Esterase Negative Urine RBC 1 Urine WBC Less than 1 Ur Squamous Epith Cells <1 Micro UA Comment Culture not ind Ur Microscopic Review Not Reportable Urine Culture Comments Culture not ind Nasal Screen MRSA (PCR) Blood Type Antibody Screen 11/03/17 11/03/17 11/04/17 19:25 20:59 03:00 WBC RBC Hgb 8.4 L Hct 24.9 L MCV MCH MCHC RDW Plt Count MPV Neut % (Auto) Lymph % (Auto) Emm[place] % (Auto) Eos % (Auto) Baso % (Auto) Neut # (Auto) Lymph # (Auto) Emmet # (Auto) Eos # (Auto) Baso # (Auto) WBC Differential Differential Comment PT INR APTT D-Dimer Quant (PE/DVT) Sodium Potassium Chloride Carbon Dioxide Anion Gap BUN Creatinine Estimated GFR Random Glucose Lactic Acid 1.5 Calcium Phosphorus Magnesium Total Bilirubin AST ALT Alkaline Phosphatase Total Creatine Kinase Troponin I B-Natriuretic Peptide Total Protein Albumin TSH Free T4 Urine Color Urine Clarity Urine pH Ur Specific [place] Urine Protein Urine Glucose (UA) Urine Ketones Urine Occult Blood Urine Nitrate Urine Bilirubin Urine Urobilinogen Ur Leukocyte Esterase Urine RBC Urine WBC Ur Squamous Epith Cells Micro UA Comment Ur Microscopic Review Urine Culture Comments Nasal Screen MRSA (PCR) Cancelled Blood Type Antibody Screen 11/04/17 11/04/17 11/04/17 03:00 03:00 03:00 WBC 7.4 RBC 2.76 L Hgb 8.5 L Hct 24.7 L MCV 89.4 MCH 30.8 MCHC 34.4 RDW 13.9 Plt Count 162 MPV 9.0 Neut % (Auto) 68.0 Lymph % (Auto) 24.7 Emmet % (Auto) 6.0 Eos % (Auto) 0.4 Baso % (Auto) 0.9 Neut # (Auto) 5.1 Lymph # (Auto) 1.8 Emmet # (Auto) 0.4 Eos # (Auto) 0.0 Baso # (Auto) 0.1 WBC Differential . Differential Comment Auto diff final PT 12.6 H INR 1.2 APTT D-Dimer Quant (PE/DVT) Sodium 151 H Potassium 3.8 Chloride 117 H Carbon Dioxide 24.3 Anion Gap 10 BUN 23 H Creatinine 0.61 Estimated GFR Greater than 89 Random Glucose 79 Lactic Acid Calcium 8.0 L Phosphorus 2.2 L Magnesium 1.9 Total Bilirubin 0.5 AST 16 ALT 11 Alkaline Phosphatase 41 L Total Creatine Kinase Troponin I B-Natriuretic Peptide Total Protein 5.6 L Albumin 2.8 L TSH Free T4 Urine Color Urine Clarity Urine pH Ur Specific [place] Urine Protein Urine Glucose (UA) Urine Ketones Urine Occult Blood Urine Nitrate Urine Bilirubin Urine Urobilinogen Ur Leukocyte Esterase Urine RBC Urine WBC Ur Squamous Epith Cells Micro UA Comment Ur Microscopic Review Urine Culture Comments Nasal Screen MRSA (PCR) Blood Type Antibody Screen - Imaging Impressions Head MRI 11/03/17 00:00 CONCLUSION: 1. Persistent extra-axial mass in the anterior inferior medial left frontal region thought to represent a meningioma measuring up to 2.6 cm. There is increased signal seen in the adjacent left frontal white matter. Mass effect on the ventricle and cortical sulci is not seen suggesting this could be related to underlying gliosis versus edema without significant effacement of the cortical sulci or mass effect on the left lateral ventricle. 2. Suspected areas of prior infarction at the left caudate and left external capsule region. 3. Mild periventricular small vessel ischemic change in the white matter. Chest X-Ray 11/03/17 12:08 CONCLUSION: 1. Mild patchy airspace disease in the left lower lung zone which may be projectional or reflect atelectasis. Head CT 11/03/17 12:08 CONCLUSION: 1. 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 Stroke could be similar between 3 and 7 days in age. 2. I have no prior studies for comparison. Venous Doppler Study 11/03/17 12:12 CONCLUSION: 1. The study is negative for bilateral lower extremity deep venous thrombosis. Chest CTA 11/03/17 13:37 CONCLUSION: 1. Moderate congestive failure with no central pulmonary emboli Assessment and Plan - Plan Altered mental status- improved. 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 -DuoNeb every 6 hours PRN -Chest x-ray did show evidence of pulmonary vascular congestion but clinically patient is not shortness of breath -CTA negative for PE Atrial fibrillation with RVR -Check 2d echo -cardiology consult -Currently sinus rhythm, rate control with beta-blockers if needed Lower GI bleed -on liquid diet. -CT abdomen and pelvis do not show any evidence of diverticulitis or ischemic colitis -Gastroenterology consulted- -Empiric Rocephin added Acute kidney insufficiency hypophosphatemia hypernatremia -Monitor renal function closely. Murray catheter. -replace electrolytes as needed. -Fluid resuscitation as above Probable sepsis -Antibiotics-Rocephin added -F/u Blood cultures, UA -will dc antibiotics within the next 24 hrs if stable. Anemia -Monitor CBC, coags -Type and screen 2 units PRBC PROPH: -Bilateral lower extremity SCDs. Chemical DVT prophylaxis is contraindicated at this time due to GI bleed -Continue IV Protonix infusion will consult palliative care. Discharge Planning: case management will be consulted for possible rehab placement.
[2017-11-04 10:40] LABS: Hematocrit 26.4 % (35.0-46.0); Hemoglobin 8.7 gm/dL (11.6-15.3)
[2017-11-04] MEDS: Pantoprazole Inj 80 MG in Sodium Chlor 0.9% Inj 100 ML IV.CONT SCH ×2 (11:24→21:45)
--- NOTE | 2017-11-04 11:31 | P.PNGI ---
Subjective Interval history: Sitting up in the chair, no acute nausea or vomiting but does have generalized weakness and fatigue Still having a mixture of dark and bright red rectal bleeding which drips into the toilet. Now on sinus rhythm heart rate 72. <Amanda Chan - Last Filed: 11/04/17 15:45> Physical Exam Vital signs: Vital Signs 11/03/17 12:05 11/03/17 13:00 11/03/17 15:00 Temperature 97.3 F L Pulse Rate 184 H 88 86 Respiratory Rate 31 H 18 12 Blood Pressure 122/75 150/65 H 180/81 H Pulse Oximetry 100 100 100 11/03/17 19:29 11/03/17 20:47 11/03/17 22:00 Temperature 98.2 F Pulse Rate 87 84 80 Respiratory Rate 17 18 Blood Pressure 162/70 H 164/73 H Pulse Oximetry 98 98 11/04/17 00:00 11/04/17 04:00 Temperature 99.3 F 99.3 F Pulse Rate 90 68 Respiratory Rate 18 12 Blood Pressure 165/72 H 154/70 H Pulse Oximetry 97 98 Intake & Output 11/03/17 11/04/17 11/04/17 18:59 06:59 18:59 Intake Total 3200 / 3200 Output Total 600 / 600 100 / 100 Balance -600 / -600 3100 / 3100 Weight 54.431 kg 57.3 kg Intake: IV 3200 / 3200 Protonix Inj 80 MG In NS Inj 100 / 100 100 ML @ 10 mls/hr IV.CONT CONT RICH Rx#:[id number] NS Inj 1,000 ML @ 84 mls/hr IV. 1000 / 1000 CONT .[id number] RICH Rx#:[id number] NS Inj 1,000 ML @ Wide Open IV. 1999 / 1999 SIG BOLUS ONE Rx#:[id number] Rocephin Inj 1,000 MG In NS Inj 100 / 100 100 ML @ 200 mls/hr IV.SIG Q24H RICH Rx#:[id number] Output: Urine 600 / 600 100 / 100 Other: # Incontinent Voids 3 Weight On Admission 57.3 kg - Constitutional mild distress, average body habitus, chronically ill appearing - Routine HEENT Exam Head: Present: normocephalic ENT: Present: mucous membranes moist - Routine Neck Exam Present: supple - Routine Respiratory Exam Present: distant breath sounds (Bilateral bases but currently maintaining oxygen level on room air) - Routine Cardiovascular Exam Present: S1, S2, murmur - Routine Abdominal Exam Present: soft (Round, soft bowel sounds but no obvious tenderness or cramping) - Routine Skin Exam Present: pallor <Amanda Chan - Last Filed: 11/04/17 15:45> Vital signs: Vital Signs 11/03/17 20:47 11/03/17 22:00 11/04/17 00:00 Temperature 98.2 F 99.3 F Pulse Rate 84 80 90 Respiratory Rate 18 18 Blood Pressure 164/73 H 165/72 H Pulse Oximetry 98 97 11/04/17 04:00 11/04/17 08:00 11/04/17 10:00 Temperature 99.3 F 97.8 F Pulse Rate 68 78 70 Respiratory Rate 12 30 H Blood Pressure 154/70 H 132/62 Pulse Oximetry 98 98 11/04/17 12:00 11/04/17 14:00 11/04/17 16:00 Temperature 97.7 F 98.7 F Pulse Rate 80 71 70 Respiratory Rate 25 H 19 Blood Pressure 147/63 H 167/72 H Pulse Oximetry 98 100 Intake & Output 11/04/17 11/04/17 11/05/17 06:59 18:59 06:59 Intake Total 3200 / 3200 1100 / 1100 Output Total 100 / 100 Balance 3100 / 3100 1100 / 1100 Weight 57.3 kg Intake: IV 3200 / 3200 200 / 200 Protonix Inj 80 MG In NS Inj 100 / 100 100 / 100 100 ML @ 10 mls/hr IV.CONT CONT RICH Rx#:[id number] NS Inj 1,000 ML @ 84 mls/hr IV. 1000 / 1000 CONT .[id number] RICH Rx#:[id number] NS Inj 1,000 ML @ Wide Open IV. 1999 / 1999 SIG BOLUS ONE Rx#:[id number] Rocephin Inj 1,000 MG In NS Inj 100 / 100 100 / 100 100 ML @ 200 mls/hr IV.SIG Q24H RICH Rx#:[id number] Oral 700 / 700 Oral Supplement 200 / 200 Output: Urine 100 / 100 Other: # Voids 4 # Incontinent Voids 3 Date of Last Bowel Movement 11/04/17 Weight On Admission 57.3 kg <Aleksey Cortez - Last Filed: 11/04/17 19:51> Results - Labs CBC & Chem 7: 11/04/17 10:15 11/04/17 03:00 Laboratory Results - last 24 hr 11/03/17 11/03/17 11/03/17 12:24 12:24 12:24 WBC 11.1 H RBC 3.30 L Hgb 10.1 L Hct 30.0 L MCV 90.9 MCH 30.8 MCHC 33.8 RDW 14.5 Plt Count 208 MPV 9.4 Neut % (Auto) 89.9 H Lymph % (Auto) 7.1 L [place] % (Auto) 2.6 Eos % (Auto) 0.0 Baso % (Auto) 0.4 Neut # (Auto) 10.0 H Lymph # (Auto) 0.8 L [place] # (Auto) 0.3 Eos # (Auto) 0.0 Baso # (Auto) 0.0 WBC Differential . Differential Comment Auto diff final PT 12.3 H INR 1.2 APTT 19.2 L D-Dimer Quant (PE/DVT) Sodium 148 H Potassium 4.5 Chloride 113 H Carbon Dioxide 24.0 Anion Gap 11 BUN 46 H Creatinine 0.85 Estimated GFR 64 L Random Glucose 129 H Lactic Acid Calcium 8.1 L Phosphorus Magnesium 2.1 Total Bilirubin 0.4 AST 11 L ALT 13 Alkaline Phosphatase 46 Total Creatine Kinase 30 Troponin I 0.11 H B-Natriuretic Peptide Total Protein 5.7 L Albumin 2.8 L TSH 1.170 Free T4 1.02 Urine Color Urine Clarity Urine pH Ur Specific [place] Urine Protein Urine Glucose (UA) Urine Ketones Urine Occult Blood Urine Nitrate Urine Bilirubin Urine Urobilinogen Ur Leukocyte Esterase Urine RBC Urine WBC Ur Squamous Epith Cells Micro UA Comment Ur Microscopic Review Urine Culture Comments Nasal Screen MRSA (PCR) Blood Type Antibody Screen 11/03/17 11/03/17 11/03/17 12:24 12:24 12:24 WBC RBC Hgb Hct MCV MCH MCHC RDW Plt Count MPV Neut % (Auto) Lymph % (Auto) [place] % (Auto) Eos % (Auto) Baso % (Auto) Neut # (Auto) Lymph # (Auto) [place] # (Auto) Eos # (Auto) Baso # (Auto) WBC Differential Differential Comment PT INR APTT D-Dimer Quant (PE/DVT) Sodium Potassium Chloride Carbon Dioxide Anion Gap BUN Creatinine Estimated GFR Random Glucose Lactic Acid 3.5 H Calcium Phosphorus Magnesium Total Bilirubin AST ALT Alkaline Phosphatase Total Creatine Kinase Troponin I B-Natriuretic Peptide 256 H Total Protein Albumin TSH Free T4 Urine Color Urine Clarity Urine pH Ur Specific [place] Urine Protein Urine Glucose (UA) Urine Ketones Urine Occult Blood Urine Nitrate Urine Bilirubin Urine Urobilinogen Ur Leukocyte Esterase Urine RBC Urine WBC Ur Squamous Epith Cells Micro UA Comment Ur Microscopic Review Urine Culture Comments Nasal Screen MRSA (PCR) Blood Type A Positive Antibody Screen Negative 11/03/17 11/03/17 11/03/17 12:24 17:28 19:25 WBC RBC Hgb 8.7 L Hct 25.9 L MCV MCH MCHC RDW Plt Count MPV Neut % (Auto) Lymph % (Auto) [place] % (Auto) Eos % (Auto) Baso % (Auto) Neut # (Auto) Lymph # (Auto) [place] # (Auto) Eos # (Auto) Baso # (Auto) WBC Differential Differential Comment PT INR APTT D-Dimer Quant (PE/DVT) 8.46 H Sodium Potassium Chloride Carbon Dioxide Anion Gap BUN Creatinine Estimated GFR Random Glucose Lactic Acid Calcium Phosphorus Magnesium Total Bilirubin AST ALT Alkaline Phosphatase Total Creatine Kinase Troponin I B-Natriuretic Peptide Total Protein Albumin TSH Free T4 Urine Color Straw Urine Clarity Clear Urine pH 5.0 Ur Specific [place] 1.032 Urine Protein Negative Urine Glucose (UA) Negative Urine Ketones Trace H Urine Occult Blood Moderate H Urine Nitrate Negative Urine Bilirubin Negative Urine Urobilinogen Less than 2 Ur Leukocyte Esterase Negative Urine RBC 1 Urine WBC Less than 1 Ur Squamous Epith Cells <1 Micro UA Comment Culture not ind Ur Microscopic Review Not Reportable Urine Culture Comments Culture not ind Nasal Screen MRSA (PCR) Blood Type Antibody Screen 11/03/17 11/03/17 11/04/17 19:25 20:59 03:00 WBC RBC Hgb 8.4 L Hct 24.9 L MCV MCH MCHC RDW Plt Count MPV Neut % (Auto) Lymph % (Auto) [place] % (Auto) Eos % (Auto) Baso % (Auto) Neut # (Auto) Lymph # (Auto) [place] # (Auto) Eos # (Auto) Baso # (Auto) WBC Differential Differential Comment PT INR APTT D-Dimer Quant (PE/DVT) Sodium Potassium Chloride Carbon Dioxide Anion Gap BUN Creatinine Estimated GFR Random Glucose Lactic Acid 1.5 Calcium Phosphorus Magnesium Total Bilirubin AST ALT Alkaline Phosphatase Total Creatine Kinase Troponin I B-Natriuretic Peptide Total Protein Albumin TSH Free T4 Urine Color Urine Clarity Urine pH Ur Specific [place] Urine Protein Urine Glucose (UA) Urine Ketones Urine Occult Blood Urine Nitrate Urine Bilirubin Urine Urobilinogen Ur Leukocyte Esterase Urine RBC Urine WBC Ur Squamous Epith Cells Micro UA Comment Ur Microscopic Review Urine Culture Comments Nasal Screen MRSA (PCR) Cancelled Blood Type Antibody Screen 11/04/17 11/04/17 11/04/17 03:00 03:00 03:00 WBC 7.4 RBC 2.76 L Hgb 8.5 L Hct 24.7 L MCV 89.4 MCH 30.8 MCHC 34.4 RDW 13.9 Plt Count 162 MPV 9.0 Neut % (Auto) 68.0 Lymph % (Auto) 24.7 [place] % (Auto) 6.0 Eos % (Auto) 0.4 Baso % (Auto) 0.9 Neut # (Auto) 5.1 Lymph # (Auto) 1.8 [place] # (Auto) 0.4 Eos # (Auto) 0.0 Baso # (Auto) 0.1 WBC Differential . Differential Comment Auto diff final PT 12.6 H INR 1.2 APTT D-Dimer Quant (PE/DVT) Sodium 151 H Potassium 3.8 Chloride 117 H Carbon Dioxide 24.3 Anion Gap 10 BUN 23 H Creatinine 0.61 Estimated GFR Greater than 89 Random Glucose 79 Lactic Acid Calcium 8.0 L Phosphorus 2.2 L Magnesium 1.9 Total Bilirubin 0.5 AST 16 ALT 11 Alkaline Phosphatase 41 L Total Creatine Kinase Troponin I B-Natriuretic Peptide Total Protein 5.6 L Albumin 2.8 L TSH Free T4 Urine Color Urine Clarity Urine pH Ur Specific [place] Urine Protein Urine Glucose (UA) Urine Ketones Urine Occult Blood Urine Nitrate Urine Bilirubin Urine Urobilinogen Ur Leukocyte Esterase Urine RBC Urine WBC Ur Squamous Epith Cells Micro UA Comment Ur Microscopic Review Urine Culture Comments Nasal Screen MRSA (PCR) Blood Type Antibody Screen 11/04/17 10:15 WBC RBC Hgb 8.7 L Hct 26.4 L MCV MCH MCHC RDW Plt Count MPV Neut % (Auto) Lymph % (Auto) [place] % (Auto) Eos % (Auto) Baso % (Auto) Neut # (Auto) Lymph # (Auto) [place] # (Auto) Eos # (Auto) Baso # (Auto) WBC Differential Differential Comment PT INR APTT D-Dimer Quant (PE/DVT) Sodium Potassium Chloride Carbon Dioxide Anion Gap BUN Creatinine Estimated GFR Random Glucose Lactic Acid Calcium Phosphorus Magnesium Total Bilirubin AST ALT Alkaline Phosphatase Total Creatine Kinase Troponin I B-Natriuretic Peptide Total Protein Albumin TSH Free T4 Urine Color Urine Clarity Urine pH Ur Specific [place] Urine Protein Urine Glucose (UA) Urine Ketones Urine Occult Blood Urine Nitrate Urine Bilirubin Urine Urobilinogen Ur Leukocyte Esterase Urine RBC Urine WBC Ur Squamous Epith Cells Micro UA Comment Ur Microscopic Review Urine Culture Comments Nasal Screen MRSA (PCR) Blood Type Antibody Screen Microbiology 11/03/17 12:24 Blood - Peripheral Aerobic Blood Culture - Preliminary No growth in 1 day 11/03/17 12:24 Blood - Peripheral Anaerobic Blood Culture - Preliminary No growth in 1 day 11/03/17 12:29 Blood - Peripheral Aerobic Blood Culture - Preliminary No growth in 1 day 11/03/17 12:29 Blood - Peripheral Anaerobic Blood Culture - Preliminary No growth in 1 day - Imaging Impressions Head MRI 11/03/17 00:00 CONCLUSION: 1. Persistent extra-axial mass in the anterior inferior medial left frontal region thought to represent a meningioma measuring up to 2.6 cm. There is increased signal seen in the adjacent left frontal white matter. Mass effect on the ventricle and cortical sulci is not seen suggesting this could be related to underlying gliosis versus edema without significant effacement of the cortical sulci or mass effect on the left lateral ventricle. 2. Suspected areas of prior infarction at the left caudate and left external capsule region. 3. Mild periventricular small vessel ischemic change in the white matter. Chest X-Ray 11/03/17 12:08 CONCLUSION: 1. Mild patchy airspace disease in the left lower lung zone which may be projectional or reflect atelectasis. Head CT 11/03/17 12:08 CONCLUSION: 1. 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 Stroke could be similar between 3 and 7 days in age. 2. I have no prior studies for comparison. Venous Doppler Study 11/03/17 12:12 CONCLUSION: 1. The study is negative for bilateral lower extremity deep venous thrombosis. Chest CTA 11/03/17 13:37 CONCLUSION: 1. Moderate congestive failure with no central pulmonary emboli <Amanda Chan - Last Filed: 11/04/17 15:45> - Labs CBC & Chem 7: 11/04/17 10:15 11/04/17 03:00 Laboratory Results - last 24 hr 11/03/17 11/03/17 11/04/17 19:25 20:59 03:00 WBC RBC Hgb 8.4 L Hct 24.9 L MCV MCH MCHC RDW Plt Count MPV Neut % (Auto) Lymph % (Auto) [place] % (Auto) Eos % (Auto) Baso % (Auto) Neut # (Auto) Lymph # (Auto) [place] # (Auto) Eos # (Auto) Baso # (Auto) WBC Differential Differential Comment PT INR Sodium Potassium Chloride Carbon Dioxide Anion Gap BUN Creatinine Estimated GFR Random Glucose Lactic Acid 1.5 Calcium Phosphorus Magnesium Total Bilirubin AST ALT Alkaline Phosphatase Total Protein Albumin Nasal Screen MRSA (PCR) Cancelled 11/04/17 11/04/17 11/04/17 03:00 03:00 03:00 WBC 7.4 RBC 2.76 L Hgb 8.5 L Hct 24.7 L MCV 89.4 MCH 30.8 MCHC 34.4 RDW 13.9 Plt Count 162 MPV 9.0 Neut % (Auto) 68.0 Lymph % (Auto) 24.7 [place] % (Auto) 6.0 Eos % (Auto) 0.4 Baso % (Auto) 0.9 Neut # (Auto) 5.1 Lymph # (Auto) 1.8 [place] # (Auto) 0.4 Eos # (Auto) 0.0 Baso # (Auto) 0.1 WBC Differential . Differential Comment Auto diff final PT 12.6 H INR 1.2 Sodium 151 H Potassium 3.8 Chloride 117 H Carbon Dioxide 24.3 Anion Gap 10 BUN 23 H Creatinine 0.61 Estimated GFR Greater than 89 Random Glucose 79 Lactic Acid Calcium 8.0 L Phosphorus 2.2 L Magnesium 1.9 Total Bilirubin 0.5 AST 16 ALT 11 Alkaline Phosphatase 41 L Total Protein 5.6 L Albumin 2.8 L Nasal Screen MRSA (PCR) 11/04/17 10:15 WBC RBC Hgb 8.7 L Hct 26.4 L MCV MCH MCHC RDW Plt Count MPV Neut % (Auto) Lymph % (Auto) [place] % (Auto) Eos % (Auto) Baso % (Auto) Neut # (Auto) Lymph # (Auto) [place] # (Auto) Eos # (Auto) Baso # (Auto) WBC Differential Differential Comment PT INR Sodium Potassium Chloride Carbon Dioxide Anion Gap BUN Creatinine Estimated GFR Random Glucose Lactic Acid Calcium Phosphorus Magnesium Total Bilirubin AST ALT Alkaline Phosphatase Total Protein Albumin Nasal Screen MRSA (PCR) Microbiology 11/03/17 12:24 Blood - Peripheral Aerobic Blood Culture - Preliminary No growth in 1 day 11/03/17 12:24 Blood - Peripheral Anaerobic Blood Culture - Preliminary No growth in 1 day 11/03/17 12:29 Blood - Peripheral Aerobic Blood Culture - Preliminary No growth in 1 day 11/03/17 12:29 Blood - Peripheral Anaerobic Blood Culture - Preliminary No growth in 1 day - Imaging Impressions Head MRI 11/03/17 00:00 CONCLUSION: 1. Persistent extra-axial mass in the anterior inferior medial left frontal region thought to represent a meningioma measuring up to 2.6 cm. There is increased signal seen in the adjacent left frontal white matter. Mass effect on the ventricle and cortical sulci is not seen suggesting this could be related to underlying gliosis versus edema without significant effacement of the cortical sulci or mass effect on the left lateral ventricle. 2. Suspected areas of prior infarction at the left caudate and left external capsule region. 3. Mild periventricular small vessel ischemic change in the white matter. <Aleksey Cortez - Last Filed: 11/04/17 19:51> Assessment and Plan - Plan - Acute GI bleed-woke up at 0600 this morning feeling notably weak with bright red and dark rectal bleeding . Rectal bleeding associated with lower abdominal cramping and generalized abdominal tenderness. pt denies hx of GI bleeding in the past. Denies taking any blood thinners or Aspirin. Denies ever having had upper or lower endoscopy. Hgb 10.1, Hct 30 which is baseline for patient. Patient denies nausea,vomiting or diarrhea. She endorses having constipation with hard stools intermittently over the last 3-4 months. Pt denies unintended weight loss. Patient denies difficulty swallowing or heartburn. Workup revealed elevated Troponin 0.11, BNP 256. On arrival to ER, pt was noted to be in Afib with RVR which resolved spontaneously. CT abdomen and pelvis--> negative for Ischemic Colitis or Diverticulitis. - Elevated Troponin and BNP- Abnormal findings on EKG on arrival to ER. Pt noted to be in Afib with RVR. Afib resolved spontaneously. 11/03/17. Chest CT negative for pulmonary embolism. Doppler study negative for DVT - Hx of TIA per pts daughter [address] head 11/03/17 1. 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 Stroke could be similar between 3 and 7 days in age. 2. I have no prior studies for comparison. 11/04/2017 patient is sitting up in the bed states that she is feeling somewhat better but is still having some bright red mixed with dark maroon rectal bleeding when she goes to the toilet. Patient was assisted per her nurse who also noted the blood consistency and color. Patient mentioned more than one time that she is tired of living. Patient's daughter is on her way to the hospital, recommended patient talk to her daughter to let her know her wishes. According to the nursing staff patient refused EGD in the emergency room on admission. Patient continues to be weakened. Discussed with patient EGD and colonoscopy explaining procedure. Explained to patient she would feel better if rectal bleeding was resolved. Addendum - Patient and family agreed to have Egd and Colonoscopy 11/05/17. Orders for consent, diet and prep placed. Plan: Diet, clear liquids today may increase per patient's tolerance If patient agrees will consider EGD colonoscopy once medical clearance, cardiac status EGD/ Colonoscopy once medically cleared and if pt agreeing Consider palliative care consult Monitor labs with special attention to H&H and transfuse as needed PPI Anti-emetics Further recommendations to follow Patient was seen per myself and Dr. Cortez, note was written his behalf <Amanda Chan - Last Filed: 11/04/17 15:45> - Plan Seen and examined with ELECTRICAL [employer]OSPECTING SUPERVISOR, Persistent bleeding, now reluctantly agreeable to gi procedures on the behest of her daughter. EGD/Colonoscopy tomorrow. The exam, history, and the medical decision-making described in the above note were completed with the assistance of the mid-level provider. I reviewed and agree with the findings presented. I attest that I had a [id number] encounter with the patient on the same day, and personally performed and documented my assessment and findings in the medical record. <Aleksey Cortez - Last Filed: 11/04/17 19:51>
--- NOTE | 2017-11-04 14:18 | MB ---
cc: Mark Correa DO DATE: 11/04/2017 REASON FOR CONSULTATION: Atrial fibrillation, elevated troponin. HISTORY OF PRESENT ILLNESS: Manuela Boyce is a pleasant 81-year-old female who presented to [facility] Emergency Room due to altered mental status, abdominal pain and rectal bleeding. Apparently, the patient was feeling well the day before, but in the morning woke up and was complaining of shortness of breath, per the son. [facility] was called and the patient was found to be altered with blood on her clothing. On the way to the emergency room, she developed atrial fibrillation with RVR and there was a question of possible facial droop. Stool was grossly positive for blood in the emergency room. She also had an elevated lactate and she was admitted to the ICU. She was seen by GI and recommended EGD and colonoscopy but refused. During her admission, she transitioned from atrial fibrillation back to sinus rhythm and has been in sinus rhythm since. She was noted to have a minimally elevated troponin during her workup. In seeing her this morning, she states that she is feeling better, sitting up in a chair without complaints. She continues in sinus rhythm. PAST MEDICAL HISTORY: CVA (2010, it does not appear that she was discharged on anticoagulation). PAST SURGICAL HISTORY: Hip replacement. ALLERGIES: DENIES. MEDICATIONS: Denies. FAMILY HISTORY: Denies premature coronary artery disease or sudden cardiac within the family. SOCIAL HISTORY: The patient is a former cigarette smoker. She denies alcohol or drug abuse. REVIEW OF SYSTEMS: Fourteen systems were reviewed including osteopathic. Pertinent positives and negatives above, otherwise negative. PHYSICAL EXAMINATION: VITAL SIGNS: Temperature 99.3, heart rate 68, blood pressure 154/70, respirations 12, pulse oximetry 98% on room air. GENERAL: The patient appears well, in no acute distress, alert, awake and oriented x3. HEENT: Extraocular muscles intact. Mucous membranes moist. NECK: Supple. No JVD at 45 degrees. No carotid bruits heard bilaterally. Carotid upstroke is brisk. HEART: Regular rate and rhythm. Positive first and second heart sounds with a 1/6 crescendo decrescendo murmur to the right sternal border. LUNGS: Clear to auscultation bilaterally. No wheezes, rales or rhonchi. ABDOMEN: Soft, nontender, nondistended, no organomegaly noted. EXTREMITIES: Show no clubbing, cyanosis or edema. Femoral and distal pulses are intact bilaterally. NEUROLOGIC: No focal deficits. SKIN: Warm, dry and intact. OSTEOPATHIC: No kyphoscoliosis or paraspinal tender points. LABORATORY DATA: Hemoglobin 8.7, hematocrit 26.4, platelets 162. Potassium 3.8, BUN 23, creatinine 0.61, troponin 0.11. Electrocardiogram (11/03/2017 at 12:20): Atrial fibrillation with rapid ventricular response, ST-T wave changes may be due to overall rate versus ischemia. IMPRESSION: 1. Atrial fibrillation with rapid ventricular response, most likely secondary to increased sympathetics. 2. Lower gastrointestinal bleed. 3. History of cerebrovascular accident (2010). 4. Renal insufficiency, most likely due to atrial fibrillation with rapid ventricular response. 5. Acute kidney injury. 6. Anemia. RECOMMENDATIONS: 1. Ms. Boyce presented with a lower GI bleed and was found to be in atrial fibrillation with rapid ventricular response. Since that time, her atrial fibrillation has converted back to sinus rhythm. 2. She does have a minimally elevated troponin, and this is most likely due to her overall illness as well as elevated heart rates on presentation. 3. As far as her atrial fibrillation goes, she seems to be now in sinus rhythm and no further episodes. This can be continued to be followed. Overall, I would not consider her an anticoagulation candidate as she has had significant bleeding while not on anticoagulation. 4. I would attempt to place her on aspirin 81 mg daily if possible. 5. As far as preoperative before surgery, she is a moderate to high risk, but she may proceed to EGD and colonoscopy if she wishes. Overall, I am unable to decrease her risk any further and these procedures to me appear necessary to further treat her. 6. We will check a 2-D echocardiogram to look at her overall left ventricular function, cardiac structure and possible valvulopathies. 7. We will continue to treat her medically for her elevated troponin, per her wish. Overall, I agree as I believe it is a type 2 spill. Thank you for allowing me to see Manuela Boyce. If there are any questions, please do not hesitate to call. Mark Correa, DO P/hermes , 01:42 PM , 01:57 PM
--- NOTE | 2017-11-04 14:24 | P.CONPAL ---
Consult Service: Palliative Care Requesting Physician: Candice Keith Reason for Consult: a. To assist with evaluation and management of symptoms including: Pain, weakness/fatigue, depression b. To assist medical decision maker(s) with: better understanding of current medical conditions; weighing benefits/burdens of medical treatment options; making medical treatment decisions. Primary Care Provider: UNKNOWN History of Present Illness History of Present Illness: This 81-year-old female, with a past history of asymptomatic meningioma and prior stroke, presented to the emergency department on 11/03/17 with altered mental status, some slurred speech, confusion, and some bright red GI bleeding. The bleeding had reportedly just started that day, and the patient felt weak. She had some vague abdominal discomfort at that time, but none since then. She did not have chest pain or palpitations, and did not appear short of breath in the emergency department. Findings in the emergency department included: * Alert, some speech difficulty * Temp 97.3, pulse 184, respirations 31, blood pressure 122/75, oxygen saturation 100% on nasal oxygen * Atrial fib/flutter with RVR * White count 11.1, hemoglobin 10.1 * Sodium 148, creatinine 0.85, albumin 2.8 * Troponin initially 0.11 * Chest x-ray with mild patchy airspace disease * CT head revealed the old meningioma * CT abdomen/pelvis revealed extensive vascular calcifications, but no evidence of inflammation * CTA of the chest was consistent with CHF but no PE * Echocardiogram reported ejection fraction 60-65%. The patient's hemoglobin decreased to 8.5 last evening, and remains at that level this forenoon. Patient denies abdominal or chest pain. Her rapid A. fib converted and has remained stable. No additional troponin levels have been measured. This morning, the nurse witnessed a bowel movement that included maroon and bright red blood. 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 When colonoscopy/endoscopy was suggested, the patient initially said she did not want any of that and just wanted "to ." When I questioned the patient about that, she said "it is just because I felt so bad and do not want to be in pain if I am just going to anyhow." What she feels is important for her to understand what the problems are now, whether they can be fixed, and whether she will be able to return home and live independently. The patient does feel like she is somewhat depressed at times, and she cries when discussing living alone since her . She is not suicidal or homicidal. Palliative Care was consulted to assist with symptom management, and to enter into discussions with the patient and family regarding her illnesses, prognosis , and the benefits and burdens of the various treatment choices. Function/Cognitive Trajectory: Patient has been living alone since she was many years ago. She functions independently, but does not drive. Her son and daughter live nearby and help her. She has some minor speech difficulty, but is able to communicate her needs and her wishes. Review of Systems Constitutional: Reports fatigue, Reports weakness, Denies weight loss Eyes: Denies irritation Ears, Nose, Mouth, and Throat: Denies abnormal hearing, Denies difficulty swallowing, Denies neck pain Cardiovascular: Reports fast heart rate, Reports shortness of breath (When first presenting to the ED), Denies chest pain, Denies foot swelling Respiratory: Denies cough, Denies pain on inspiration, Denies shortness of breath Gastrointestinal: Reports abdominal pain (Initially, but now resolved), Reports black, tarry stools, Reports bright, red blood in stools, Denies coffee ground vomit, Denies constipation, Denies nausea, Denies vomiting blood Genitourinary: Denies blood in urine Musculoskeletal: Denies back pain, Denies joint swelling Skin/Breast: Denies rash Neurologic: Reports confusion (Seems to have cleared), Denies frequent falls, Denies convulsions, Denies seizure-like activity Psychiatric: Reports depression, Denies thoughts of hurting/killing others, Denies thoughts of hurting/killing yourself Endocrine: Denies flushing Hematologic/Lymphatic: Denies easy bruising Allergic/Immunologic: Denies hives PMFSH - History History Provided By: Patient, Family Member - Medical History Medical History: Medical History (Last Updated 11/04/17 @ 14:08 by Latonya Mccormick MD) CVA (cerebral vascular accident) Meningioma TIA (transient ischemic attack) - Surgical History Surgical History: Surgical History (Last Reviewed 11/04/17 @ 07:58 by Wilfred Peralta) History of hip replacement - Family History Family History: Family History (Last Updated 11/04/17 @ 14:08 by Latonya Mccormick MD) Other Heart disease - Tobacco History Second Hand Smoke Exposure: No Tobacco Use In Past 30 Days: No Smoking Status: Former smoker Tobacco Type: Cigarettes Smoking End Date: Years ago - Alcohol History How Often Do You Have a Drink Containing Alcohol: Monthly or less - Substance Use History Substance History: No History of Abuse - Travel History Recent Travel in the [place] Within the Last 8 Weeks: No Recent Travel Out of the Country Within the Last 8 Weeks: No - Immunization History Tetanus Immunization: Unable to Assess Hx Influenza Vaccine This Season: Unable to Assess Medications and Allergies Active Medications: Active Medications Acetaminophen (Tylenol) 650 mg PO Q6H PRN PRN Reason: PAIN 1-10 AND/OR FEVER >101F Albuterol (Duoneb Neb (Prn)) 1 ampul NEB Q2HR NEB PRN PRN Reason: WHEEZING Chlorhexidine Gluconate (Chlorhexidine 2% Cloth) 3 pack TOPICAL DAILY@0400 RICH Stop: 11/09/17 03:59 Last Admin: 11/04/17 05:26 Dose: 3 pack Chlorhexidine Gluconate (Chlorhexidine 2% Cloth) 3 pack TOPICAL DAILY@0400 PRN PRN Reason: Extra cloth needed Stop: 11/09/17 03:59 Sodium Chloride (Ns Inj) 1,000 mls @ 84 mls/hr IV.CONT .[id number] [facility] Last Admin: 11/04/17 08:48 Dose: 84 mls/hr Ceftriaxone Sodium 1,000 mg/ (Sodium Chloride) 100 mls @ 200 mls/hr IV.SIG Q24H [facility] Last Infusion: 11/03/17 23:50 Dose: Infused Magnesium Sulfate Inj 4 gm/ (Sodium Chloride) 100 mls @ 50 mls/hr IV.SIG UNSCH PRN PRN Reason: For Magnesium 0.9 - 1.1 mg/dL Magnesium Sulfate Inj 2 gm/ (Sodium Chloride) 100 mls @ 50 mls/hr IV.SIG UNSCH PRN PRN Reason: For Magnesium 1.2 - 1.6 mg/dL Potassium Chloride (Kcl 40 Meq Premix Inj) 40 meq in 100 mls @ 25 mls/hr IV.SIG Q2H PRN PRN Reason: For Potassium 2.8 - 3.2 mEq/L Potassium Chloride (Kcl 20 Meq Premix Inj) 20 meq in 100 mls @ 50 mls/hr IV.SIG Q2H PRN PRN Reason: For Potassium 3.3 - 3.5 mEq/L Potassium Chloride (Kcl 40 Meq Premix Inj) 40 meq in 100 mls @ 25 mls/hr IV.SIG UNSCH PRN PRN Reason: For Potassium 3.3 - 3.5 mEq/L Potassium Chloride (Kcl 20 Meq Premix Inj) 20 meq in 100 mls @ 50 mls/hr IV.SIG Q2H PRN PRN Reason: For Potassium 2.8 - 3.2 mEq/L Potassium Phosphate 30 mmol/ (Sodium Chloride) 260 mls @ 42 mls/hr IV.SIG UNSCH PRN PRN Reason: SEE LABEL COMMENTS Sodium Phosphate 30 mmol/ (Sodium Chloride) 260 mls @ 42 mls/hr IV.SIG UNSCH PRN PRN Reason: For Phosphorus < 2.5 mg/dL Nicardipine HCl 25 mg/ Sodium (Chloride) 250 mls @ 50 mls/hr IV.CONT TITRATE PRN; Protocol PRN Reason: Per Protocol Pantoprazole Sodium 80 mg/ (Sodium Chloride) 100 mls @ 10 mls/hr IV.CONT Q10H RICH Last Admin: 11/04/17 11:24 Dose: 10 mls/hr Labetalol HCl (Trandate Inj) 10 mg IV.PUSH Q1H PRN PRN Reason: Sbp>165, Dbp>90, Hr>65 Last Admin: 11/04/17 10:43 Dose: 10 mg Lactulose (Lactulose Liq) 30 ml PO DAILY PRN PRN Reason: SEVERE CONSITIPATION Magnesium Oxide (Mag-Ox) 800 mg PO UNSCH PRN PRN Reason: For Magnesium 1.2 - 1.6 mg/dL Metoprolol Tartrate (Lopressor Inj) 2.5 mg IV.PUSH Q6H PRN PRN Reason: HR >120 Potassium Bicarb/Potassium Chloride (K-Lyte Cl Eff) 50 meq PO UNSCH PRN PRN Reason: For Potassium 3.3 - 3.5 mEq/L Potassium Phosphate (K-Phos Original) 2,000 mg PO Q4H PRN PRN Reason: Phosphorus Less Than 2.5 mg/dL Last Admin: 11/04/17 10:25 Dose: 2,000 mg Potassium Phosphate (K-Phos Original) 2,000 mg PO UNSCH PRN PRN Reason: SEE LABEL COMMENTS Sodium Chloride (Ns Flush) 2 ml IV.FLUSH BID RICH Last Admin: 11/04/17 08:51 Dose: Not Given Sodium Chloride (Ns Flush) 2 ml IV.FLUSH PRN PRN PRN Reason: FLUSH AFTER USING IV ACCESS Allergies Allergy/AdvReac Type Severity Reaction Status Date / Time ANESTHESIA AdvReac Severe Sedation Uncoded 08/11/10 10:55 Home Medications Medication Instructions Recorded Confirmed Type No Known Home Medications 11/03/17 11/03/17 History Advance Directives Living Will: No Healthcare Surrogate: Yes (Completed 11/04/17) Health Care Surrogate Name and Number: Dali Rosa Power of Etl Analyst Developer: No Today's verbally stated goals: The patient wants to remain FULL CODE for now, and wants to discuss medical treatment goals after more definitive information is available regarding the etiology of her GI bleeding and the status of her heart. Family/friends goals: The patient's daughter Awilda and son Farhan support the patient's wishes. Ethical and Legal Issues: There are no ethical issues that would impact her steroid decision-making at this time. The patient has capacity for decision-making at this time. On 11/04/17, she is designating her daughter Shala as HCS. Physical Exam Vital Signs: Vital Signs - 24 hr 11/03/17 15:00 11/03/17 19:29 11/03/17 20:47 Temperature 98.2 F Pulse Rate 86 87 84 Respiratory Rate 12 17 18 Blood Pressure 180/81 H 162/70 H 164/73 H Pulse Oximetry 100 98 98 11/03/17 22:00 11/04/17 00:00 11/04/17 04:00 Temperature 99.3 F 99.3 F Pulse Rate 80 90 68 Respiratory Rate 18 12 Blood Pressure 165/72 H 154/70 H Pulse Oximetry 97 98 I&O: Intake & Output 11/02/17 11/03/17 11/04/17 11/05/17 06:59 06:59 06:59 06:59 Intake Total 3200 / 3200 Output Total 700 / 700 Balance 2500 / 2500 Weight 57.3 kg Physical Exam: CONSTITUTIONAL/GENERAL: This is an elderly, somewhat weak patient, in no apparent distress. TUBES/LINES/DRAINS: Peripheral IV, nasal oxygen SKIN: No jaundice, rashes, or lesions. Ecchymoses on upper extremities. No wounds seen anteriorly. Skin temperature appropriate. Not diaphoretic. HEAD: Atraumatic. Normocephalic. EYES: Pupils equal and round and reactive. Extraocular motions intact. No scleral icterus. No injection or drainage. Fundi not examined. ENT: Hearing grossly normal. Nose without bleeding or purulent drainage. Throat without visible erythema, exudates, masses, or lesions. NECK: Trachea midline. Supple, nontender. No palpable thyroid enlargement or nodularity. CARDIOVASCULAR: Regular rate and rhythm without murmurs, gallops, or rubs. No JVD. Peripheral pulses symmetric. RESPIRATORY/CHEST: Symmetric, unlabored respirations. A couple scattered rhonchi. GASTROINTESTINAL: Abdomen soft, non-tender, nondistended. No hepato-splenomegaly , or palpable masses. No guarding. Bowel sounds present. GENITOURINARY: Without palpable bladder distension. MUSCULOSKELETAL: Extremities without clubbing, cyanosis, or edema. No joint tenderness or effusion noted. No calf tenderness. No mottling or clubbing. LYMPHATICS: No palpable cervical or supraclavicular adenopathy. NEUROLOGICAL: Awake and alert. Motor and sensory grossly within normal limits. Follows commands. Cognitively sharp. Moves all extremities. Her speech is just slightly slurred for her but easily understandable PSYCHIATRIC: No obvious anxiety/depression. No apparent hallucinations or other psychotic thought process. Diagnostic Tests Laboratory: Laboratory Results - last 72 hr 11/03/17 11/03/17 11/03/17 12:24 12:24 12:24 WBC 11.1 H RBC 3.30 L Hgb 10.1 L Hct 30.0 L MCV 90.9 MCH 30.8 MCHC 33.8 RDW 14.5 Plt Count 208 MPV 9.4 Neut % (Auto) 89.9 H Lymph % (Auto) 7.1 L Sutter % (Auto) 2.6 Eos % (Auto) 0.0 Baso % (Auto) 0.4 Neut # (Auto) 10.0 H Lymph # (Auto) 0.8 L Sutter # (Auto) 0.3 Eos # (Auto) 0.0 Baso # (Auto) 0.0 WBC Differential . Differential Comment Auto diff final PT 12.3 H INR 1.2 APTT 19.2 L D-Dimer Quant (PE/DVT) Sodium 148 H Potassium 4.5 Chloride 113 H Carbon Dioxide 24.0 Anion Gap 11 BUN 46 H Creatinine 0.85 Estimated GFR 64 L Random Glucose 129 H Lactic Acid Calcium 8.1 L Phosphorus Magnesium 2.1 Total Bilirubin 0.4 AST 11 L ALT 13 Alkaline Phosphatase 46 Total Creatine Kinase 30 Troponin I 0.11 H B-Natriuretic Peptide Total Protein 5.7 L Albumin 2.8 L TSH 1.170 Free T4 1.02 Urine Color Urine Clarity Urine pH Ur Specific [place] Urine Protein Urine Glucose (UA) Urine Ketones Urine Occult Blood Urine Nitrate Urine Bilirubin Urine Urobilinogen Ur Leukocyte Esterase Urine RBC Urine WBC Ur Squamous Epith Cells Micro UA Comment Ur Microscopic Review Urine Culture Comments Nasal Screen MRSA (PCR) Blood Type Antibody Screen 11/03/17 11/03/17 11/03/17 12:24 12:24 12:24 WBC RBC Hgb Hct MCV MCH MCHC RDW Plt Count MPV Neut % (Auto) Lymph % (Auto) Sutter % (Auto) Eos % (Auto) Baso % (Auto) Neut # (Auto) Lymph # (Auto) Sutter # (Auto) Eos # (Auto) Baso # (Auto) WBC Differential Differential Comment PT INR APTT D-Dimer Quant (PE/DVT) Sodium Potassium Chloride Carbon Dioxide Anion Gap BUN Creatinine Estimated GFR Random Glucose Lactic Acid 3.5 H Calcium Phosphorus Magnesium Total Bilirubin AST ALT Alkaline Phosphatase Total Creatine Kinase Troponin I B-Natriuretic Peptide 256 H Total Protein Albumin TSH Free T4 Urine Color Urine Clarity Urine pH Ur Specific [place] Urine Protein Urine Glucose (UA) Urine Ketones Urine Occult Blood Urine Nitrate Urine Bilirubin Urine Urobilinogen Ur Leukocyte Esterase Urine RBC Urine WBC Ur Squamous Epith Cells Micro UA Comment Ur Microscopic Review Urine Culture Comments Nasal Screen MRSA (PCR) Blood Type A Positive Antibody Screen Negative 11/03/17 11/03/17 11/03/17 12:24 17:28 19:25 WBC RBC Hgb 8.7 L Hct 25.9 L MCV MCH MCHC RDW Plt Count MPV Neut % (Auto) Lymph % (Auto) Sutter % (Auto) Eos % (Auto) Baso % (Auto) Neut # (Auto) Lymph # (Auto) Sutter # (Auto) Eos # (Auto) Baso # (Auto) WBC Differential Differential Comment PT INR APTT D-Dimer Quant (PE/DVT) 8.46 H Sodium Potassium Chloride Carbon Dioxide Anion Gap BUN Creatinine Estimated GFR Random Glucose Lactic Acid Calcium Phosphorus Magnesium Total Bilirubin AST ALT Alkaline Phosphatase Total Creatine Kinase Troponin I B-Natriuretic Peptide Total Protein Albumin TSH Free T4 Urine Color Straw Urine Clarity Clear Urine pH 5.0 Ur Specific [place] 1.032 Urine Protein Negative Urine Glucose (UA) Negative Urine Ketones Trace H Urine Occult Blood Moderate H Urine Nitrate Negative Urine Bilirubin Negative Urine Urobilinogen Less than 2 Ur Leukocyte Esterase Negative Urine RBC 1 Urine WBC Less than 1 Ur Squamous Epith Cells <1 Micro UA Comment Culture not ind Ur Microscopic Review Not Reportable Urine Culture Comments Culture not ind Nasal Screen MRSA (PCR) Blood Type Antibody Screen 11/03/17 11/03/17 11/04/17 19:25 20:59 03:00 WBC RBC Hgb 8.4 L Hct 24.9 L MCV MCH MCHC RDW Plt Count MPV Neut % (Auto) Lymph % (Auto) Sutter % (Auto) Eos % (Auto) Baso % (Auto) Neut # (Auto) Lymph # (Auto) Sutter # (Auto) Eos # (Auto) Baso # (Auto) WBC Differential Differential Comment PT INR APTT D-Dimer Quant (PE/DVT) Sodium Potassium Chloride Carbon Dioxide Anion Gap BUN Creatinine Estimated GFR Random Glucose Lactic Acid 1.5 Calcium Phosphorus Magnesium Total Bilirubin AST ALT Alkaline Phosphatase Total Creatine Kinase Troponin I B-Natriuretic Peptide Total Protein Albumin TSH Free T4 Urine Color Urine Clarity Urine pH Ur Specific [place] Urine Protein Urine Glucose (UA) Urine Ketones Urine Occult Blood Urine Nitrate Urine Bilirubin Urine Urobilinogen Ur Leukocyte Esterase Urine RBC Urine WBC Ur Squamous Epith Cells Micro UA Comment Ur Microscopic Review Urine Culture Comments Nasal Screen MRSA (PCR) Cancelled Blood Type Antibody Screen 11/04/17 11/04/17 11/04/17 03:00 03:00 03:00 WBC 7.4 RBC 2.76 L Hgb 8.5 L Hct 24.7 L MCV 89.4 MCH 30.8 MCHC 34.4 RDW 13.9 Plt Count 162 MPV 9.0 Neut % (Auto) 68.0 Lymph % (Auto) 24.7 Sutter % (Auto) 6.0 Eos % (Auto) 0.4 Baso % (Auto) 0.9 Neut # (Auto) 5.1 Lymph # (Auto) 1.8 Sutter # (Auto) 0.4 Eos # (Auto) 0.0 Baso # (Auto) 0.1 WBC Differential . Differential Comment Auto diff final PT 12.6 H INR 1.2 APTT D-Dimer Quant (PE/DVT) Sodium 151 H Potassium 3.8 Chloride 117 H Carbon Dioxide 24.3 Anion Gap 10 BUN 23 H Creatinine 0.61 Estimated GFR Greater than 89 Random Glucose 79 Lactic Acid Calcium 8.0 L Phosphorus 2.2 L Magnesium 1.9 Total Bilirubin 0.5 AST 16 ALT 11 Alkaline Phosphatase 41 L Total Creatine Kinase Troponin I B-Natriuretic Peptide Total Protein 5.6 L Albumin 2.8 L TSH Free T4 Urine Color Urine Clarity Urine pH Ur Specific [place] Urine Protein Urine Glucose (UA) Urine Ketones Urine Occult Blood Urine Nitrate Urine Bilirubin Urine Urobilinogen Ur Leukocyte Esterase Urine RBC Urine WBC Ur Squamous Epith Cells Micro UA Comment Ur Microscopic Review Urine Culture Comments Nasal Screen MRSA (PCR) Blood Type Antibody Screen 11/04/17 10:15 WBC RBC Hgb 8.7 L Hct 26.4 L MCV MCH MCHC RDW Plt Count MPV Neut % (Auto) Lymph % (Auto) Sutter % (Auto) Eos % (Auto) Baso % (Auto) Neut # (Auto) Lymph # (Auto) Sutter # (Auto) Eos # (Auto) Baso # (Auto) WBC Differential Differential Comment PT INR APTT D-Dimer Quant (PE/DVT) Sodium Potassium Chloride Carbon Dioxide Anion Gap BUN Creatinine Estimated GFR Random Glucose Lactic Acid Calcium Phosphorus Magnesium Total Bilirubin AST ALT Alkaline Phosphatase Total Creatine Kinase Troponin I B-Natriuretic Peptide Total Protein Albumin TSH Free T4 Urine Color Urine Clarity Urine pH Ur Specific [place] Urine Protein Urine Glucose (UA) Urine Ketones Urine Occult Blood Urine Nitrate Urine Bilirubin Urine Urobilinogen Ur Leukocyte Esterase Urine RBC Urine WBC Ur Squamous Epith Cells Micro UA Comment Ur Microscopic Review Urine Culture Comments Nasal Screen MRSA (PCR) Blood Type Antibody Screen Result Diagrams: 11/04/17 10:15 11/04/17 03:00 Microbiology: Microbiology 11/03/17 12:24 Aerobic Blood Culture - Preliminary Blood - Peripheral No growth in 1 day Anaerobic Blood Culture - Preliminary No growth in 1 day 11/03/17 12:29 Aerobic Blood Culture - Preliminary Blood - Peripheral No growth in 1 day Anaerobic Blood Culture - Preliminary No growth in 1 day Imaging: Head MRI 11/03/17 00:00 CONCLUSION: 1. Persistent extra-axial mass in the anterior inferior medial left frontal region thought to represent a meningioma measuring up to 2.6 cm. There is increased signal seen in the adjacent left frontal white matter. Mass effect on the ventricle and cortical sulci is not seen suggesting this could be related to underlying gliosis versus edema without significant effacement of the cortical sulci or mass effect on the left lateral ventricle. 2. Suspected areas of prior infarction at the left caudate and left external capsule region. 3. Mild periventricular small vessel ischemic change in the white matter. Chest X-Ray 11/03/17 12:08 CONCLUSION: 1. Mild patchy airspace disease in the left lower lung zone which may be projectional or reflect atelectasis. Head CT 11/03/17 12:08 CONCLUSION: 1. 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 Stroke could be similar between 3 and 7 days in age. 2. I have no prior studies for comparison. Venous Doppler Study 11/03/17 12:12 CONCLUSION: 1. The study is negative for bilateral lower extremity deep venous thrombosis. Chest CTA 11/03/17 13:37 CONCLUSION: 1. Moderate congestive failure with no central pulmonary emboli Patient/Family Conference Present at Family Conference: Son Franki Boyce, and daughter Awilda Parr Family Conference Time: 39 Family Conference Location: Bedside Issues Discussed: * Palliative care role, purpose, approach * Additional medical, psychosocial, and spiritual history * Patients general health, functional status, and cognitive changes in the months leading up to the current hospitalization * Patient/family understanding of the current medical problems * Patient/family understanding of prognosis * Patients goals of care as best understood from advance directives and/or conversations and/or values * Current medical treatment options and benefits/burdens of those options * Likely scenarios comparing ongoing aggressive care with a transition to comfort measures only * Questions answered to the best of my ability * Palliative care contact information provided Assessment and Plan - Disease Oriented Problem List (1) GI bleeding Comment: Evaluation pending (2) Anemia Comment: Dropped 2 g of hemoglobin in the first 24 hours (3) Altered mental state (4) Atrial fibrillation with rapid ventricular response Comment: Resolved (5) Meningioma Comment: Since at least 2010 on scans - Symptom Scale (1) Depression 0-10 Scale: Unable to quantify (2) Pain Comment: Resolved Pertinent Non-Medical Issues: Psychosocial: Originally from [place], has lived in this area for about 30 years. Has lived alone the last 20 years since she was . 6 children, 4 living in the [facility], and a son and daughter living locally and close to the patient. Spiritual: The patient reports that her belief in God is important for her; "He will take me when He is ready." Legal: The patient has capacity for decision-making at this time. On 11/04/17, she is designating her daughter Shala as HCS. Ethical issues impacting care: none Important Contacts: Daughter/HCS: Shala Rosa Daughter: Awilda Parr [phone] Son: Farhan Boyce [phone] Prognosis: Her overall prognosis because of her advanced age and general debility is rather guarded. The ultimate prognosis will depend on the stability of her heart and the etiology and treatment options for her GI bleeding. Code Status: Full Code Plan: * Full CODE, but she wants to readdress this question after more definitive diagnoses and prognoses are noted with respect to her GI and cardiac issues. * GOALS: The patient wants to remain FULL CODE for now, and wants to discuss medical treatment goals after more definitive information is available regarding the etiology of her GI bleeding and the status of her heart. The most important thing for her is to be able to return home and function independently again and to not be in pain. * DECISION-MAKING: The patient has capacity for decision-making at this time. On 11/04/17, she is designating her daughter Shala as HCS (and the nurse is helping the patient complete the form). * SYMPTOMS: The patient's pain is resolved, she is no longer dyspneic, and her depression seems chronic but stable. I have no further medication recommendations at this time. * Palliative Care will continue to follow the patient during this hospitalization. Time Spent Total Floor Time (mins): 78 Face to Face Time (mins): 40 >50% Time in Counseling or Coordination of Care: Yes (d/w RN) Appreciation Thank you for the opportunity to participate in the care of Manuela Boyce.
[2017-11-04] MEDS ORDERED: Magnesium Citrate Liq 300 ML Bottle PO ONE ×2 (16:00→18:00)
--- NOTE | 2017-11-04 16:07 | ECG ---
Date Performed: 11/03/2017 Time Performed: 12:20:58 PTAGE: 81 years EKG: ATRIAL FIBRILLATION WITH RAPID VENTRICULAR RESPONSE ST DEVIATION AND MODERATE T-WAVE ABNORM ALITY, CONSIDER LATERAL ISCHEMIA Since the previous tracing, no significant change noted ABNORMAL ECG PREVIOUS TRACING : 11/03/2017 11.59 DOCTOR: Herb Corrigan Interpretating Date/Time 11/04/2017 16:07:17
--- NOTE | 2017-11-04 16:07 | ECG ---
Date Performed: 11/03/2017 Time Performed: 11:59:43 PTAGE: 81 years EKG: ATRIAL FIBRILLATION WITH RAPID VENTRICULAR RESPONSE ST DEVIATION AND MODERATE T-WAVE ABNORM ALITY, CONSIDER LATERAL ISCHEMIA Since the previous tracing, no significant change noted ABNORMAL ECG PREVIOUS TRACING : 08/13/2010 16.04 DOCTOR: Herb Corrigan Interpretating Date/Time 11/04/2017 16:07:02
[2017-11-04 19:52] LABS: Hematocrit 25.4 % (35.0-46.0); Hemoglobin 8.5 gm/dL (11.6-15.3)
[2017-11-05] MEDS: Labetalol HCl Inj 100 MG/20 ML Vial IV.PUSH PRN ×3 (00:02→06:17)
[2017-11-05 03:20] LABS: Baso # (Auto) 0.1 th/mm3 (0.0-0.2); Baso % (Auto) 0.9 % (0.0-2.0); Eos # (Auto) 0.1 th/mm3 (0.0-0.4); Eos % (Auto) 1.5 % (0.0-4.0); Hematocrit 24.6 % (35.0-46.0); Hemoglobin 8.1 gm/dL (11.6-15.3); Lymph # (Auto) 1.2 th/mm3 (1.0-4.8); Mean Corpuscular Hemoglobin 30.2 pg (27.0-34.0); Mean Corpuscular Volume 91.5 fL (80.0-100.0); Mean Platelet Volume 9.4 fL (7.0-11.0); Mono # (Auto) 0.4 th/mm3 (0.0-0.9); Mono % (Auto) 6.3 % (0.0-8.0); Neut # (Auto) 4.4 th/mm3 (1.8-7.7); Neut % (Auto) 71.3 % (16.0-70.0); Platelet Count 153 th/mm3 (150-450); Red Blood Count 2.68 mil/mm3 (4.00-5.30); Red Cell Distribution Width 14.4 % (11.6-17.2); White Blood Count 6.1 th/mm3 (4.0-11.0)
[2017-11-05] MEDS: Chlorhexidine Gluconate 2% 1 Pack (2 Cloths) TOPICAL SCH (03:43)
[2017-11-05 04:07] LABS: Anion Gap 8 meq/L (5-15); Blood Urea Nitrogen 8 mg/dL (7-18); Calcium 7.9 mg/dL (8.5-10.1); Carbon Dioxide 25.7 meq/L (21.0-32.0); Chloride 114 meq/L (98-107); Glomerular Filtration Rate Greater Than 89 mL/min (>89); Glucose,Random 88 mg/dL (74-106); Potassium 3.6 meq/L (3.5-5.1); Sodium 148 meq/L (136-145)
[2017-11-05] MEDS: Pantoprazole Inj 80 MG in Sodium Chlor 0.9% Inj 100 ML IV.CONT SCH ×2 (08:01→21:03)
[2017-11-05] MEDS ORDERED: Lidocaine PF 1% Inj 5 ML Syringe INFILTRATN ONE (10:11)
--- NOTE | 2017-11-05 10:20 | GIPROC ---
[facility] [address] [facility]. [facility], [address] EGD PROCEDURE REPORT EXAM DATE: 11/05/2017 PATIENT NAME: Manuela Boyce MR #: [id number] BIRTHDATE: 1935 ATTENDING: Aleksey Cortez MD ORDER #: [id number] MIXER LEVER OPERATOR: Jackie Fitzgerald and Nancy Liu STATUS: inpatient INDICATIONS: The patient is a 81 yr old female here for an EGD due to iron deficiency anemia PROCEDURE PERFORMED: EGD w/ biopsy MEDICATIONS: None and Per Anesthesia. TOPICAL ANESTHETIC: CONSENT: The patient understands the risks and benefits of the procedure and understands that these risks include, but are not limited to: sedation, allergic reaction, infection, perforation and/or bleeding. Alternative means of evaluation and treatment include, among others: physical exam, x-rays, and/or surgical intervention. The patient elects to proceed with this endoscopic procedure. medical equipment was checked for proper function. Hand hygiene and appropriate measures for infection prevention was taken. After the risks, benefits and alternatives of the procedure were thoroughly explained, Informed consent was verified, confirmed and timeout was successfully executed by the treatment team. The patient was anesthetized with topical anesthesia and the EC-3490Li (Pedi C) endoscope was introduced through the mouth and advanced to the second portion of the duodenum. Retroflexed views revealed an ulcer The gastroscope was then slowly withdrawn and removed. ESOPHAGUS: A near circumferential ulcerated and fungating mass, measuring 3 X 3cm in size, with friable surfaces was found in the distal esophagus. Multiple biopsies were performed using cold forceps. Sample sent for histology. STOMACH: A large non-bleeding, deep and clean-based ulcer with surrounding edema was found in the gastric fundus. DUODENUM: The duodenal mucosa appeared normal in the bulb and second portion of the duodenum. ADVERSE EVENTS: There were no complications. IMPRESSIONS: 1. Near circumferential mass, measuring 3 X 3cm in size, was found in the distal esophagus; multiple biopsies were performed 2. Large ulcer was found in the gastric fundus 3. Normal duodenal mucosa in the bulb and second portion of the duodenum 4. Retroflexed views revealed an ulcer RECOMMENDATIONS: 1. Await biopsy results. Biopsy results will not be ready for 7-10 days. If you don't hear from us in two weeks, call our office for biopsy results. 2. Anti-reflux regimen 3. Continue PPI PATIENT CONDITION: stable DISPOSITION: Inpatient REPEAT EXAM: Return 3 months EGD pending biopsy results Aleksey Cortez MD eSigned: Aleksey Cortez MD 11/05/2017 10:20 AM cc: PATIENT NAME: Manuela Boyce MR#: [id number]
--- NOTE | 2017-11-05 10:45 | GIPROC ---
[facility] [address] [facility]. [facility], [address] COLONOSCOPY PROCEDURE REPORT EXAM DATE: 11/05/2017 PATIENT NAME: Manuela Boyce MR #: [id number] BIRTHDATE: 1935 ENDOSCOPIST: Aleksey Cortez MD ORDER #: [id number] CARPET INSTALLER: Jackie Fitzgerald and Nancy Liu STATUS: inpatient INDICATIONS: The patient is a 81 yr old female here for a colonoscopy due to hematochezia and anemia, non-specific Colonoscopy with control of bleeding MEDICATIONS: None and Per Anesthesia. PREP QUALITY: The [place] Bowel Prep Score was Right colon 2, Mid colon 2, and Left colon 2. Total = 6. PREP TYPE:GoLytely ESTIMATED BLOOD LOSS: None CONSENT: The patient understands the risks and benefits of the procedure and understands that these risks include, but are not limited to: sedation, allergic reaction, infection, perforation and/or bleeding. Alternative means of evaluation and treatment include, among others: physical exam, x-rays, and/or surgical intervention. The patient elects to proceed with this endoscopic procedure. medical equipment was checked for proper function. Hand hygiene and appropriate measures for infection prevention was taken. After the risks, benefits and alternatives of the procedure were thoroughly explained, Informed consent was verified, confirmed and timeout was successfully executed by the treatment team. A digital exam revealed external hemorrhoids The Pentax EC-3490Li endoscope was introduced through the anus and advanced to the cecum, which was identified by both the appendix and ileocecal valve. The instrument was then slowly withdrawn as the colon was fully examined. COLON FINDINGS: Severe diverticulosis was noted throughout the entire examined colon. No bleeding was noted from the diverticulosis. A 2 x 2cm patch of abnormal mucosa was found at the cecum. The mucosa was congested, edematous and erythematous. Multiple biopsies were performed using cold forceps. Two polypoid shaped semi-pedunculated polyps measuring 10 mm in size were found in the sigmoid colon. A polypectomy was performed using snare cautery. The resection was complete and the polyp tissue was completely retrieved. Retroflexed views revealed internal hemorrhoids and Retroflexed views revealed medium internal hemorrhoids The scope was then completely withdrawn from the patient and the procedure terminated. PROCEDURE WITHDRAWAL TIME:10minutes ADVERSE EVENTS: There were no complications. IMPRESSIONS: 1. Severe diverticulosis was noted throughout the entire examined colon 2. 2 x 2cm abnormal mucosa was found at the cecum; The mucosa was congested, edematous and erythematous; multiple biopsies were performed using cold forceps 3. Two semi-pedunculated polyps were found in the sigmoid colon; polypectomy was performed using snare cautery 4. Retroflexed views revealed internal hemorrhoids 5. Retroflexed views revealed medium internal hemorrhoids 6. Revealed external hemorrhoids RECOMMENDATIONS: 1. Await biopsy results. Biopsy results will not be ready for 7-10 days. If you don't hear from us in two weeks, call our office for results. 2. Continue surveillance 3. Yearly hemoccult 4. No seeds, nuts and popcorn in diet RECALL: Return 1 year Colonoscopy, pending biopsy results Aleksey Cortez MD eSigned: Aleksey Cortez MD 11/05/2017 10:44 AM cc: PATIENT NAME: Manuela Boyce MR#: [id number]
[2017-11-05] MEDS: Sod Chloride 0.9% Inj 1,000 ML IV.CONT SCH ×3 (10:50→16:53)
--- NOTE | 2017-11-05 12:31 | P.PNIM ---
Subjective Interval history: f/u; GI bleed in no acute distress. had some rectal bleed last night. had EGD/colonoscopy earlier. denies abdominal pain, nausea/vomiting. daughter at the bedside. d/w the RN. Physical Exam Vital signs: Vital Signs 11/04/17 14:00 11/04/17 16:00 11/04/17 20:00 Temperature 98.7 F 98.3 F Pulse Rate 71 70 74 Respiratory Rate 19 20 Blood Pressure 167/72 H 153/68 H Pulse Oximetry 100 93 L 11/05/17 00:00 11/05/17 04:00 11/05/17 08:38 Temperature 98.3 F 98.7 F 97.6 F Pulse Rate 70 70 66 Respiratory Rate 20 20 20 Blood Pressure 162/67 H 178/75 H 169/73 H Pulse Oximetry 99 98 96 11/05/17 09:30 Temperature Pulse Rate 67 Respiratory Rate 14 Blood Pressure 151/65 H Pulse Oximetry 96 Intake & Output 11/04/17 11/05/17 11/05/17 18:59 06:59 18:59 Intake Total 1100 / 1100 1340 / 1340 100 / 100 Balance 1100 / 1100 1340 / 1340 100 / 100 Weight 57.2 kg Intake: IV 200 / 200 1100 / 1100 100 / 100 Protonix Inj 80 MG In NS Inj 100 / 100 100 / 100 100 / 100 100 ML @ 10 mls/hr IV.CONT Q10H RICH Rx#:[id number] NS Inj 1,000 ML @ 84 mls/hr IV. 1000 / 1000 CONT .[id number] RICH Rx#:[id number] Rocephin Inj 1,000 MG In NS Inj 100 / 100 100 ML @ 200 mls/hr IV.SIG Q24H RICH Rx#:[id number] Oral 700 / 700 240 / 240 Oral Supplement 200 / 200 Other: # Voids 4 1 Date of Last Bowel Movement 11/04/17 11/05/17 # Bowel Movements 1 - Constitutional no acute distress - Routine Respiratory Exam Present: CTA bilaterally - Routine Cardiovascular Exam Present: RRR - Routine Abdominal Exam Present: soft - Routine Extremities Exam Comments: no pedal edema. - Routine Neurological Exam Present: alert, oriented X3 Results - Labs CBC & Chem 7: 11/05/17 02:32 11/05/17 02:32 Laboratory Results - last 24 hr 11/04/17 11/05/17 11/05/17 19:28 02:32 02:32 WBC 6.1 RBC 2.68 L Hgb 8.5 L 8.1 L Hct 25.4 L 24.6 L MCV 91.5 MCH 30.2 MCHC 33.0 RDW 14.4 Plt Count 153 MPV 9.4 Neut % (Auto) 71.3 H Lymph % (Auto) 20.0 [place] % (Auto) 6.3 Eos % (Auto) 1.5 Baso % (Auto) 0.9 Neut # (Auto) 4.4 Lymph # (Auto) 1.2 [place] # (Auto) 0.4 Eos # (Auto) 0.1 Baso # (Auto) 0.1 WBC Differential . Differential Comment Auto diff final Sodium 148 H Potassium 3.6 Chloride 114 H Carbon Dioxide 25.7 Anion Gap 8 BUN 8 Creatinine 0.61 Estimated GFR Greater than 89 Random Glucose 88 Calcium 7.9 L Microbiology 11/03/17 12:24 Blood - Peripheral Aerobic Blood Culture - Preliminary No growth in 2 days 11/03/17 12:24 Blood - Peripheral Anaerobic Blood Culture - Preliminary No growth in 2 days 11/03/17 12:29 Blood - Peripheral Aerobic Blood Culture - Preliminary No growth in 2 days 11/03/17 12:29 Blood - Peripheral Anaerobic Blood Culture - Preliminary No growth in 2 days Assessment and Plan - Plan Altered mental status- improved. 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 -DuoNeb every 6 hours PRN -Chest x-ray did show evidence of pulmonary vascular congestion but clinically patient is not shortness of breath -CTA negative for PE Atrial fibrillation with RVR -back on sinus rhythm -echo with EF 55% -cardiology consult appreciated. -no anticoagulation due to GI bleed. Lower GI bleed s/p EGD with distal esophageal mass and gastric ulcer s/p colonoscopy; s/p polypectomy sigmoid colon with abnormal cecum - will follow the biopsy -continue to monitor for recurrent bleeding and will monitor H/H hypophosphatemia- replaced- hypernatremia- improved -Monitor renal function closely. -replace electrolytes as needed. -Fluid resuscitation as above Anemia -Monitor CBC, coags -Type and screen 2 units PRBC PROPH: -Bilateral lower extremity SCDs. Chemical DVT prophylaxis is contraindicated at this time due to GI bleed -Continue IV Protonix infusion d/w palliative care today. transfer to floor within the next 24 hrs if no recurrent bleeding and H/H stable. Discharge Planning: dc to SNF if no recurrent bleeding and when cleared by GI.
--- NOTE | 2017-11-05 15:37 | P.PNPAL ---
Reason for Visit Reason for visit: a. To assist with evaluation and management of symptoms including: Pain, weakness/fatigue, depression b. To assist medical decision maker(s) with: better understanding of current medical conditions; weighing benefits/burdens of medical treatment options; making medical treatment decisions. Subjective Subjective/Interval History: INTERVAL NOTE: The patient is in the more cheery mood today, smiling, and overall feels better. She denies pain at this time. In reviewing her recent history, she does believe she has lost a couple pounds of weight over the past couple months. In addition, for the past several weeks , she has food sticking in her esophagus intermittently. She had her EGD and colonoscopy earlier today, and says she feels no ill effects from the procedure. Report from the EGD indicates a circumferential, ulcerated, fungating, friable mass 3 x 3 cm in the distal esophagus, and biopsies were obtained. In addition there is a deep ulceration in the gastric fundus. Report from the colonoscopy indicates she has numerous diverticuli, and there is a 3 cm abnormal area in the cecum that was also biopsied. Family/Friend Interactions: Daughter was at the bedside. Together, we all discussed the abnormal findings during her EGD and colonoscopy, that biopsies were obtained, and that it is possible and perhaps even likely that one or both of these abnormal areas represent malignancies. Advance Directives Health Care Surrogate Name and Number: Dali Rosa Objective Vital Signs: Vital Signs 11/04/17 16:00 11/04/17 20:00 11/05/17 00:00 Temperature 98.7 F 98.3 F 98.3 F Pulse Rate 70 74 70 Respiratory Rate 19 20 20 Blood Pressure 167/72 H 153/68 H 162/67 H Pulse Oximetry 100 93 L 99 11/05/17 04:00 11/05/17 08:38 11/05/17 09:30 Temperature 98.7 F 97.6 F Pulse Rate 70 66 67 Respiratory Rate 20 20 14 Blood Pressure 178/75 H 169/73 H 151/65 H Pulse Oximetry 98 96 96 Intake & Output 11/04/17 11/05/17 11/05/17 18:59 06:59 18:59 Intake Total 1100 / 1100 1340 / 1340 1100 / 1100 Balance 1100 / 1100 1340 / 1340 1100 / 1100 Weight 57.2 kg Intake: IV 200 / 200 1100 / 1100 1100 / 1100 Protonix Inj 80 MG In NS Inj 100 / 100 100 / 100 100 / 100 100 ML @ 10 mls/hr IV.CONT Q10H RICH Rx#:[id number] NS Inj 1,000 ML @ 84 mls/hr IV. 1000 / 1000 1000 / 1000 CONT .[id number] RICH Rx#:[id number] Rocephin Inj 1,000 MG In NS Inj 100 / 100 100 ML @ 200 mls/hr IV.SIG Q24H RICH Rx#:[id number] Oral 700 / 700 240 / 240 Oral Supplement 200 / 200 Other: # Voids 4 1 Date of Last Bowel Movement 11/04/17 11/05/17 # Bowel Movements 1 Physical Exam: CONSTITUTIONAL/GENERAL: This is an elderly, smiling patient, in no apparent distress. TUBES/LINES/DRAINS: Peripheral IV, nasal oxygen CARDIOVASCULAR: Regular rate and rhythm without murmurs, gallops, or rubs. No JVD. Peripheral pulses symmetric. RESPIRATORY/CHEST: Symmetric, unlabored respirations. A couple scattered rhonchi. GASTROINTESTINAL: Abdomen soft, non-tender, nondistended. No hepato-splenomegaly , or palpable masses. No guarding. Bowel sounds present. MUSCULOSKELETAL: Extremities without clubbing, cyanosis, or edema. No joint tenderness or effusion noted. No calf tenderness. No mottling or clubbing. NEUROLOGICAL: Awake and alert. Motor and sensory grossly within normal limits. Follows commands. Cognitively sharp. Moves all extremities. Her speech is just slightly slurred for her but easily understandable PSYCHIATRIC: No obvious anxiety/depression. No apparent hallucinations or other psychotic thought process. Diagnostic Tests Laboratory: Laboratory Results - last 72 hr 11/03/17 11/03/17 11/03/17 12:24 12:24 12:24 WBC 11.1 H RBC 3.30 L Hgb 10.1 L Hct 30.0 L MCV 90.9 MCH 30.8 MCHC 33.8 RDW 14.5 Plt Count 208 MPV 9.4 Neut % (Auto) 89.9 H Lymph % (Auto) 7.1 L [place] % (Auto) 2.6 Eos % (Auto) 0.0 Baso % (Auto) 0.4 Neut # (Auto) 10.0 H Lymph # (Auto) 0.8 L [place] # (Auto) 0.3 Eos # (Auto) 0.0 Baso # (Auto) 0.0 WBC Differential . Differential Comment Auto diff final PT 12.3 H INR 1.2 APTT 19.2 L D-Dimer Quant (PE/DVT) Sodium 148 H Potassium 4.5 Chloride 113 H Carbon Dioxide 24.0 Anion Gap 11 BUN 46 H Creatinine 0.85 Estimated GFR 64 L Random Glucose 129 H Lactic Acid Calcium 8.1 L Phosphorus Magnesium 2.1 Total Bilirubin 0.4 AST 11 L ALT 13 Alkaline Phosphatase 46 Total Creatine Kinase 30 Troponin I 0.11 H B-Natriuretic Peptide Total Protein 5.7 L Albumin 2.8 L TSH 1.170 Free T4 1.02 Urine Color Urine Clarity Urine pH Ur Specific [place] Urine Protein Urine Glucose (UA) Urine Ketones Urine Occult Blood Urine Nitrate Urine Bilirubin Urine Urobilinogen Ur Leukocyte Esterase Urine RBC Urine WBC Ur Squamous Epith Cells Micro UA Comment Ur Microscopic Review Urine Culture Comments Nasal Screen MRSA (PCR) Blood Type Antibody Screen 11/03/17 11/03/17 11/03/17 12:24 12:24 12:24 WBC RBC Hgb Hct MCV MCH MCHC RDW Plt Count MPV Neut % (Auto) Lymph % (Auto) [place] % (Auto) Eos % (Auto) Baso % (Auto) Neut # (Auto) Lymph # (Auto) [place] # (Auto) Eos # (Auto) Baso # (Auto) WBC Differential Differential Comment PT INR APTT D-Dimer Quant (PE/DVT) Sodium Potassium Chloride Carbon Dioxide Anion Gap BUN Creatinine Estimated GFR Random Glucose Lactic Acid 3.5 H Calcium Phosphorus Magnesium Total Bilirubin AST ALT Alkaline Phosphatase Total Creatine Kinase Troponin I B-Natriuretic Peptide 256 H Total Protein Albumin TSH Free T4 Urine Color Urine Clarity Urine pH Ur Specific [place] Urine Protein Urine Glucose (UA) Urine Ketones Urine Occult Blood Urine Nitrate Urine Bilirubin Urine Urobilinogen Ur Leukocyte Esterase Urine RBC Urine WBC Ur Squamous Epith Cells Micro UA Comment Ur Microscopic Review Urine Culture Comments Nasal Screen MRSA (PCR) Blood Type A Positive Antibody Screen Negative 11/03/17 11/03/17 11/03/17 12:24 17:28 19:25 WBC RBC Hgb 8.7 L Hct 25.9 L MCV MCH MCHC RDW Plt Count MPV Neut % (Auto) Lymph % (Auto) [place] % (Auto) Eos % (Auto) Baso % (Auto) Neut # (Auto) Lymph # (Auto) [place] # (Auto) Eos # (Auto) Baso # (Auto) WBC Differential Differential Comment PT INR APTT D-Dimer Quant (PE/DVT) 8.46 H Sodium Potassium Chloride Carbon Dioxide Anion Gap BUN Creatinine Estimated GFR Random Glucose Lactic Acid Calcium Phosphorus Magnesium Total Bilirubin AST ALT Alkaline Phosphatase Total Creatine Kinase Troponin I B-Natriuretic Peptide Total Protein Albumin TSH Free T4 Urine Color Straw Urine Clarity Clear Urine pH 5.0 Ur Specific [place] 1.032 Urine Protein Negative Urine Glucose (UA) Negative Urine Ketones Trace H Urine Occult Blood Moderate H Urine Nitrate Negative Urine Bilirubin Negative Urine Urobilinogen Less than 2 Ur Leukocyte Esterase Negative Urine RBC 1 Urine WBC Less than 1 Ur Squamous Epith Cells <1 Micro UA Comment Culture not ind Ur Microscopic Review Not Reportable Urine Culture Comments Culture not ind Nasal Screen MRSA (PCR) Blood Type Antibody Screen 11/03/17 11/03/17 11/04/17 19:25 20:59 03:00 WBC RBC Hgb 8.4 L Hct 24.9 L MCV MCH MCHC RDW Plt Count MPV Neut % (Auto) Lymph % (Auto) [place] % (Auto) Eos % (Auto) Baso % (Auto) Neut # (Auto) Lymph # (Auto) [place] # (Auto) Eos # (Auto) Baso # (Auto) WBC Differential Differential Comment PT INR APTT D-Dimer Quant (PE/DVT) Sodium Potassium Chloride Carbon Dioxide Anion Gap BUN Creatinine Estimated GFR Random Glucose Lactic Acid 1.5 Calcium Phosphorus Magnesium Total Bilirubin AST ALT Alkaline Phosphatase Total Creatine Kinase Troponin I B-Natriuretic Peptide Total Protein Albumin TSH Free T4 Urine Color Urine Clarity Urine pH Ur Specific [place] Urine Protein Urine Glucose (UA) Urine Ketones Urine Occult Blood Urine Nitrate Urine Bilirubin Urine Urobilinogen Ur Leukocyte Esterase Urine RBC Urine WBC Ur Squamous Epith Cells Micro UA Comment Ur Microscopic Review Urine Culture Comments Nasal Screen MRSA (PCR) Cancelled Blood Type Antibody Screen 11/04/17 11/04/17 11/04/17 03:00 03:00 03:00 WBC 7.4 RBC 2.76 L Hgb 8.5 L Hct 24.7 L MCV 89.4 MCH 30.8 MCHC 34.4 RDW 13.9 Plt Count 162 MPV 9.0 Neut % (Auto) 68.0 Lymph % (Auto) 24.7 [place] % (Auto) 6.0 Eos % (Auto) 0.4 Baso % (Auto) 0.9 Neut # (Auto) 5.1 Lymph # (Auto) 1.8 [place] # (Auto) 0.4 Eos # (Auto) 0.0 Baso # (Auto) 0.1 WBC Differential . Differential Comment Auto diff final PT 12.6 H INR 1.2 APTT D-Dimer Quant (PE/DVT) Sodium 151 H Potassium 3.8 Chloride 117 H Carbon Dioxide 24.3 Anion Gap 10 BUN 23 H Creatinine 0.61 Estimated GFR Greater than 89 Random Glucose 79 Lactic Acid Calcium 8.0 L Phosphorus 2.2 L Magnesium 1.9 Total Bilirubin 0.5 AST 16 ALT 11 Alkaline Phosphatase 41 L Total Creatine Kinase Troponin I B-Natriuretic Peptide Total Protein 5.6 L Albumin 2.8 L TSH Free T4 Urine Color Urine Clarity Urine pH Ur Specific [place] Urine Protein Urine Glucose (UA) Urine Ketones Urine Occult Blood Urine Nitrate Urine Bilirubin Urine Urobilinogen Ur Leukocyte Esterase Urine RBC Urine WBC Ur Squamous Epith Cells Micro UA Comment Ur Microscopic Review Urine Culture Comments Nasal Screen MRSA (PCR) Blood Type Antibody Screen 11/04/17 11/04/17 11/05/17 10:15 19:28 02:32 WBC RBC Hgb 8.7 L 8.5 L Hct 26.4 L 25.4 L MCV MCH MCHC RDW Plt Count MPV Neut % (Auto) Lymph % (Auto) [place] % (Auto) Eos % (Auto) Baso % (Auto) Neut # (Auto) Lymph # (Auto) [place] # (Auto) Eos # (Auto) Baso # (Auto) WBC Differential Differential Comment PT INR APTT D-Dimer Quant (PE/DVT) Sodium 148 H Potassium 3.6 Chloride 114 H Carbon Dioxide 25.7 Anion Gap 8 BUN 8 Creatinine 0.61 Estimated GFR Greater than 89 Random Glucose 88 Lactic Acid Calcium 7.9 L Phosphorus Magnesium Total Bilirubin AST ALT Alkaline Phosphatase Total Creatine Kinase Troponin I B-Natriuretic Peptide Total Protein Albumin TSH Free T4 Urine Color Urine Clarity Urine pH Ur Specific [place] Urine Protein Urine Glucose (UA) Urine Ketones Urine Occult Blood Urine Nitrate Urine Bilirubin Urine Urobilinogen Ur Leukocyte Esterase Urine RBC Urine WBC Ur Squamous Epith Cells Micro UA Comment Ur Microscopic Review Urine Culture Comments Nasal Screen MRSA (PCR) Blood Type Antibody Screen 11/05/17 02:32 WBC 6.1 RBC 2.68 L Hgb 8.1 L Hct 24.6 L MCV 91.5 MCH 30.2 MCHC 33.0 RDW 14.4 Plt Count 153 MPV 9.4 Neut % (Auto) 71.3 H Lymph % (Auto) 20.0 [place] % (Auto) 6.3 Eos % (Auto) 1.5 Baso % (Auto) 0.9 Neut # (Auto) 4.4 Lymph # (Auto) 1.2 [place] # (Auto) 0.4 Eos # (Auto) 0.1 Baso # (Auto) 0.1 WBC Differential . Differential Comment Auto diff final PT INR APTT D-Dimer Quant (PE/DVT) Sodium Potassium Chloride Carbon Dioxide Anion Gap BUN Creatinine Estimated GFR Random Glucose Lactic Acid Calcium Phosphorus Magnesium Total Bilirubin AST ALT Alkaline Phosphatase Total Creatine Kinase Troponin I B-Natriuretic Peptide Total Protein Albumin TSH Free T4 Urine Color Urine Clarity Urine pH Ur Specific [place] Urine Protein Urine Glucose (UA) Urine Ketones Urine Occult Blood Urine Nitrate Urine Bilirubin Urine Urobilinogen Ur Leukocyte Esterase Urine RBC Urine WBC Ur Squamous Epith Cells Micro UA Comment Ur Microscopic Review Urine Culture Comments Nasal Screen MRSA (PCR) Blood Type Antibody Screen Result Diagrams: 11/05/17 02:32 11/05/17 02:32 Microbiology: Microbiology 11/03/17 12:24 Aerobic Blood Culture - Preliminary Blood - Peripheral No growth in 2 days Anaerobic Blood Culture - Preliminary No growth in 2 days 11/03/17 12:29 Aerobic Blood Culture - Preliminary Blood - Peripheral No growth in 2 days Anaerobic Blood Culture - Preliminary No growth in 2 days Procedures: EGD with biopsy 11/05/17 Colonoscopy with biopsy 11/05/17 Assessment and Plan - Disease Oriented Problem List (1) GI bleeding Comment: EGD and colonoscopy, both with biopsies, 11/04/17 (2) Anemia Comment: Dropped 2 g of hemoglobin in the first 24 hours (3) Altered mental state (4) Atrial fibrillation with rapid ventricular response Comment: Resolved (5) Meningioma Comment: Since at least 2010 on scans - Symptom Scale (2) Pain Comment: Resolved Pertinent Non-Medical Issues: Psychosocial: Originally from [place], has lived in this area for about 30 years. Has lived alone the last 20 years since she was . 6 children, 4 living in the [place] area, and a son and daughter living locally and close to the patient. Spiritual: The patient reports that her belief in God is important for her; "He will take me when He is ready." Legal: The patient has capacity for decision-making at this time. On 11/04/17, she is designating her daughter Shala as HCS. Ethical issues impacting care: none Important Contacts: Daughter/HCS: Shala Rosa Daughter: Awilda Parr [phone] Son: Farhan Boyce [phone] Prognosis: Her overall prognosis because of her advanced age and general debility is rather guarded. The ultimate prognosis will depend on the stability of her heart and the etiology and treatment options for her GI bleeding, and the extent of what appears to be an esophageal malignancy. Code Status: Full Code Plan: * Full CODE, but she wants to readdress this question after more definitive diagnoses and prognoses are noted with respect to her GI and cardiac issues. * GOALS: The patient wants to remain FULL CODE for now, and wants to await biopsy reports before making any further decisions. She does understand that it is likely that she has a GI malignancy; biopsies are pending. The most important thing for her is to be able to return home and function independently again and to not be in pain. * DECISION-MAKING: The patient has capacity for decision-making at this time. She has designated her daughter Shala as HCS. * SYMPTOMS: The patient's pain is resolved, she is no longer dyspneic, and her depression seems chronic but stable. I have no further medication recommendations at this time. * Palliative Care will continue to follow the patient during this hospitalization. Time Spent Total Floor Time (mins): 39 Face to Face Time (mins): 21 >50% Time in Counseling or Coordination of Care: Yes (d/w RN and w Dr. Sanchez) Attestation Collaborating MD Comments: To help prompt me to consider important information that might be impacting today's encounter and assessment, information from prior notes written by myself or my colleagues may have been "brought forward" into today's note. My signature on this note, however, is an attestation that I personally performed the exam, history, and/or decision-making noted today, and, unless otherwise indicated, the interactions with patient, family, and staff as well as the review of records all occurred today. I also attest that the listed assessment and stated plan reflect my best clinical judgment today based on the combination of historical information, prior notes, and today's exam/ interactions. When time spent is documented, it refers only to time spent today by the signer, or if indicated, combined time spent today by collaborating physician/nurse practitioner.
[2017-11-05 16:01] LABS: Hematocrit 26.6 % (35.0-46.0); Hemoglobin 8.9 gm/dL (11.6-15.3)
--- NOTE | 2017-11-05 23:23 | P.PNCA ---
Subjective Interval history: EGD/Cscope done today Concern for GI mass, pathology pending Sinus rhythm No complaints Physical Exam Vital signs: Vital Signs 11/05/17 00:00 11/05/17 04:00 11/05/17 08:00 Temperature 98.3 F 98.7 F Pulse Rate 70 70 62 Respiratory Rate 20 20 Blood Pressure 162/67 H 178/75 H Pulse Oximetry 99 98 11/05/17 08:38 11/05/17 09:30 11/05/17 10:00 Temperature 97.6 F Pulse Rate 66 67 69 Respiratory Rate 20 14 Blood Pressure 169/73 H 151/65 H Pulse Oximetry 96 96 11/05/17 12:00 11/05/17 14:00 11/05/17 16:00 Temperature 97.7 F 98.2 F Pulse Rate 68 78 76 Respiratory Rate 24 25 H Blood Pressure 114/54 L 155/55 H Pulse Oximetry 99 99 11/05/17 20:00 Temperature 98.8 F Pulse Rate 90 Respiratory Rate 19 Blood Pressure 109/64 Pulse Oximetry 99 Intake & Output 11/05/17 11/05/17 11/06/17 06:59 18:59 06:59 Intake Total 1340 / 1340 1700 / 1700 Balance 1340 / 1340 1700 / 1700 Weight 57.2 kg Intake: IV 1100 / 1100 1200 / 1200 Protonix Inj 80 MG In NS Inj 100 / 100 200 / 200 100 ML @ 10 mls/hr IV.CONT Q10H RICH Rx#:[id number] NS Inj 1,000 ML @ 84 mls/hr IV. 1000 / 1000 1000 / 1000 CONT .[id number] RICH Rx#:[id number] Oral 240 / 240 500 / 500 Other: # Voids 1 5 Date of Last Bowel Movement 11/05/17 11/05/17 11/05/17 # Bowel Movements 1 1 Narrative: GENERAL: NAD, AAOx3 SKIN: Warm and dry. HEAD: Atraumatic. Normocephalic. EYES: Pupils equal and round. No scleral icterus. No injection or drainage. ENT: No nasal bleeding or discharge. Mucous membranes pink and moist. NECK: Trachea midline. No JVD. CARDIOVASCULAR: Regular rate and rhythm. 1/6 crescendo-decrescendo murmur to the RSB RESPIRATORY: No accessory muscle use. Clear to auscultation. Breath sounds equal bilaterally. GASTROINTESTINAL: Abdomen soft, non-tender, nondistended. Hepatic and splenic margins not palpable. MUSCULOSKELETAL: Extremities without clubbing, cyanosis, or edema. No obvious deformities. NEUROLOGICAL: Awake and alert. No obvious cranial nerve deficits. Motor grossly within normal limits. Five out of 5 muscle strength in the arms and legs. Normal speech. PSYCHIATRIC: Appropriate mood and affect; insight and judgment normal. Assessment and Plan - Assessment (1) Lower GI bleed Code(s): K92.2 - Gastrointestinal hemorrhage, unspecified Status: Acute (2) Atrial fibrillation with rapid ventricular response Code(s): I48.91 - Unspecified atrial fibrillation Status: Acute (3) GI bleeding Code(s): K92.2 - Gastrointestinal hemorrhage, unspecified Status: Acute (4) Anemia Code(s): D64.9 - Anemia, unspecified Status: Acute (5) Depression Code(s): F32.9 - Major depressive disorder, single episode, unspecified Status : Acute (6) Elevated troponin Code(s): R74.8 - Abnormal levels of other serum enzymes Status: Acute - Plan 1) GI bleed Found to have a mass with ulcer Biopsy pending 2) Afib with RVR on admission Currently sinus rhythm Most likely due to overall illness Not an anticoagulation candidate due to GI mass/bleed If possible would place on ASA 81mg, but might not be possible with current mass/ulcer 3) Elevated troponins Most likely Type 2 in nature Con't medical management per her wishes
[2017-11-06] MEDS: Sod Chloride 0.9% Inj 1,000 ML IV.CONT SCH ×3 (00:44→14:21)
[2017-11-06] MEDS: Chlorhexidine Gluconate 2% 1 Pack (2 Cloths) TOPICAL SCH (03:27)
[2017-11-06 04:27] LABS: Baso # (Auto) 0.1 th/mm3 (0.0-0.2); Baso % (Auto) 0.8 % (0.0-2.0); Eos # (Auto) 0.1 th/mm3 (0.0-0.4); Eos % (Auto) 1.5 % (0.0-4.0); Hematocrit 22.5 % (35.0-46.0); Hemoglobin 7.6 gm/dL (11.6-15.3); Lymph # (Auto) 1.4 th/mm3 (1.0-4.8); Lymph % (Auto) 20.5 % (9.0-44.0); Mean Corpuscular HGB Conc 33.6 % (32.0-36.0); Mean Corpuscular Hemoglobin 30.5 pg (27.0-34.0); Mean Platelet Volume 9.1 fL (7.0-11.0); Mono # (Auto) 0.4 th/mm3 (0.0-0.9); Mono % (Auto) 6.2 % (0.0-8.0); Platelet Count 144 th/mm3 (150-450); Red Blood Count 2.48 mil/mm3 (4.00-5.30); Red Cell Distribution Width 14.5 % (11.6-17.2)
[2017-11-06] MEDS: Pantoprazole Inj 80 MG in Sodium Chlor 0.9% Inj 100 ML IV.CONT SCH ×3 (06:11→19:14)
--- NOTE | 2017-11-06 08:55 | P.PNIM ---
Subjective Interval history: f/u; GI bleed looks pale and exhausted. had some more rectal bleed last night. now back in a-fib with RVR. daughter at the bedside. d/w the RN. Physical Exam Vital signs: Vital Signs 11/05/17 09:30 11/05/17 10:00 11/05/17 12:00 Temperature 97.7 F Pulse Rate 67 69 68 Respiratory Rate 14 24 Blood Pressure 151/65 H 114/54 L Pulse Oximetry 96 99 11/05/17 14:00 11/05/17 16:00 11/05/17 20:00 Temperature 98.2 F 98.8 F Pulse Rate 78 76 90 Respiratory Rate 25 H 19 Blood Pressure 155/55 H 109/64 Pulse Oximetry 99 99 11/06/17 00:00 11/06/17 04:00 Temperature 99.0 F 99.2 F Pulse Rate 66 79 Respiratory Rate 12 18 Blood Pressure 98/54 L 154/67 H Pulse Oximetry 96 96 Intake & Output 11/05/17 11/06/17 11/06/17 18:59 06:59 18:59 Intake Total 1700 / 1700 1000 / 1000 100 / 100 Balance 1700 / 1700 1000 / 1000 100 / 100 Weight 58.6 kg Intake: IV 1200 / 1200 1000 / 1000 100 / 100 Protonix Inj 80 MG In NS Inj 200 / 200 100 / 100 100 ML @ 10 mls/hr IV.CONT Q10H RICH Rx#:[id number] NS Inj 1,000 ML @ 84 mls/hr IV. 1000 / 1000 1000 / 1000 CONT .[id number] RICH Rx#:[id number] Oral 500 / 500 Other: # Voids 5 3 Date of Last Bowel Movement 11/05/17 11/06/17 # Bowel Movements 1 1 - Constitutional chronically ill appearing - Routine Respiratory Exam Present: CTA bilaterally - Routine Cardiovascular Exam Present: tachycardia, irregularly irregular - Routine Abdominal Exam Present: soft - Routine Extremities Exam Comments: no pedal edema. - Routine Neurological Exam Present: alert, oriented X3 Results - Labs CBC & Chem 7: 11/06/17 03:37 11/05/17 02:32 Laboratory Results - last 24 hr 11/05/17 11/06/17 15:32 03:37 WBC 7.0 RBC 2.48 L Hgb 8.9 L 7.6 L Hct 26.6 L 22.5 L MCV 91.0 MCH 30.5 MCHC 33.6 RDW 14.5 Plt Count 144 L MPV 9.1 Neut % (Auto) 71.0 H Lymph % (Auto) 20.5 [place] % (Auto) 6.2 Eos % (Auto) 1.5 Baso % (Auto) 0.8 Neut # (Auto) 5.0 Lymph # (Auto) 1.4 [place] # (Auto) 0.4 Eos # (Auto) 0.1 Baso # (Auto) 0.1 WBC Differential . Differential Comment Auto diff final Microbiology 11/03/17 12:24 Blood - Peripheral Aerobic Blood Culture - Preliminary No growth in 2 days 11/03/17 12:24 Blood - Peripheral Anaerobic Blood Culture - Preliminary No growth in 2 days 11/03/17 12:29 Blood - Peripheral Aerobic Blood Culture - Preliminary No growth in 2 days 11/03/17 12:29 Blood - Peripheral Anaerobic Blood Culture - Preliminary No growth in 2 days Assessment and Plan - Plan Acute encephalopathy- improved. 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 -DuoNeb every 6 hours PRN -Chest x-ray did show evidence of pulmonary vascular congestion but clinically patient is not shortness of breath -CTA negative for PE Atrial fibrillation with RVR -echo with EF 55% -no anticoagulation due to GI bleed. -will continue to monitor. -cardiology following. Lower GI bleed anemia- acute due to GI bleed s/p EGD with distal esophageal mass and gastric ulcer s/p colonoscopy; s/p polypectomy sigmoid colon with abnormal cecum - will follow the biopsy -will transfuse with two units of PRBC and monitor H/H closely. hypophosphatemia- replaced- hypernatremia- improved -Monitor renal function closely. -replace electrolytes as needed. -Fluid resuscitation as above PROPH: -Bilateral lower extremity SCDs. Chemical DVT prophylaxis is contraindicated at this time due to GI bleed -Continue IV Protonix infusion will keep in ICU today for close monitoring. Discharge Planning: dc to SNF if no recurrent bleeding and when cleared by GI.
[2017-11-06] MEDS ORDERED: Sodium Chlor 0.9% Inj 250 ML IV.SIG SCH (09:00)
[2017-11-06 09:24] LABS: Hematocrit 23.8 % (35.0-46.0)
--- NOTE | 2017-11-06 10:28 | P.PNCA ---
Subjective Interval history: Afib with RVR this morning Physical Exam Vital signs: Vital Signs 11/05/17 12:00 11/05/17 14:00 11/05/17 16:00 Temperature 97.7 F 98.2 F Pulse Rate 68 78 76 Respiratory Rate 24 25 H Blood Pressure 114/54 L 155/55 H Pulse Oximetry 99 99 11/05/17 20:00 11/06/17 00:00 11/06/17 04:00 Temperature 98.8 F 99.0 F 99.2 F Pulse Rate 90 66 79 Respiratory Rate 19 12 18 Blood Pressure 109/64 98/54 L 154/67 H Pulse Oximetry 99 96 96 11/06/17 08:00 11/06/17 10:22 Temperature 97.6 F Pulse Rate 84 158 H Respiratory Rate 28 H Blood Pressure 106/59 L Pulse Oximetry 97 Intake & Output 11/05/17 11/06/17 11/06/17 18:59 06:59 18:59 Intake Total 1700 / 1700 1000 / 1000 100 / 100 Balance 1700 / 1700 1000 / 1000 100 / 100 Weight 58.6 kg Intake: IV 1200 / 1200 1000 / 1000 100 / 100 Protonix Inj 80 MG In NS Inj 200 / 200 100 / 100 100 ML @ 10 mls/hr IV.CONT Q10H RICH Rx#:[id number] NS Inj 1,000 ML @ 84 mls/hr IV. 1000 / 1000 1000 / 1000 CONT .[id number] RICH Rx#:[id number] Oral 500 / 500 Intake (Blood Product) Amt 0 / 0 Rbc As-3 Leukoreduced Unit 0 / 0 [id number] Other: # Voids 5 3 Date of Last Bowel Movement 11/05/17 11/06/17 11/06/17 # Bowel Movements 1 1 Narrative: GENERAL: NAD, AAOx3 SKIN: Warm and dry. HEAD: Atraumatic. Normocephalic. EYES: Pupils equal and round. No scleral icterus. No injection or drainage. ENT: No nasal bleeding or discharge. Mucous membranes pink and moist. NECK: Trachea midline. No JVD. CARDIOVASCULAR: Irregularly irregularly. 1/6 crescendo-decrescendo murmur to the RSB RESPIRATORY: No accessory muscle use. Clear to auscultation. Breath sounds equal bilaterally. GASTROINTESTINAL: Abdomen soft, non-tender, nondistended. Hepatic and splenic margins not palpable. MUSCULOSKELETAL: Extremities without clubbing, cyanosis, or edema. No obvious deformities. NEUROLOGICAL: Awake and alert. No obvious cranial nerve deficits. Motor grossly within normal limits. Five out of 5 muscle strength in the arms and legs. Normal speech. PSYCHIATRIC: Appropriate mood and affect; insight and judgment normal. Assessment and Plan - Assessment (1) Lower GI bleed Code(s): K92.2 - Gastrointestinal hemorrhage, unspecified Status: Acute (2) Atrial fibrillation with rapid ventricular response Code(s): I48.91 - Unspecified atrial fibrillation Status: Acute (3) GI bleeding Code(s): K92.2 - Gastrointestinal hemorrhage, unspecified Status: Acute (4) Anemia Code(s): D64.9 - Anemia, unspecified Status: Acute (5) Depression Code(s): F32.9 - Major depressive disorder, single episode, unspecified Status : Acute (6) Elevated troponin Code(s): R74.8 - Abnormal levels of other serum enzymes Status: Acute - Plan 1) GI bleed Found to have a mass with ulcer Biopsy pending 2) Afib with RVR on admission Currently Afib with RVR again Cardizem PO Most likely due to overall illness Not an anticoagulation candidate due to GI mass/bleed If possible would place on ASA 81mg, but might not be possible with current mass/ulcer 3) Elevated troponins Most likely Type 2 in nature Con't medical management per her wishes
[2017-11-06] MEDS: dilTIAZem 30 MG Tablet PO SCH ×4 (10:51→21:51)
--- NOTE | 2017-11-06 12:02 | P.PNGI ---
Subjective Interval history: Pt resting in bed, states she has a lot going on. Reports abdominal pain. Denies nausea and vomiting. Poor appetite, her daughter brought her food from [employer] but she does not feel like eating. No BM since GI procedures yesterday. <Pam Franks - Last Filed: 11/06/17 11:55> Physical Exam Vital signs: Vital Signs 11/05/17 12:00 11/05/17 14:00 11/05/17 16:00 Temperature 97.7 F 98.2 F Pulse Rate 68 78 76 Respiratory Rate 24 25 H Blood Pressure 114/54 L 155/55 H Pulse Oximetry 99 99 11/05/17 20:00 11/06/17 00:00 11/06/17 04:00 Temperature 98.8 F 99.0 F 99.2 F Pulse Rate 90 66 79 Respiratory Rate 19 12 18 Blood Pressure 109/64 98/54 L 154/67 H Pulse Oximetry 99 96 96 11/06/17 08:00 11/06/17 10:22 11/06/17 10:37 Temperature 98.2 F 97.6 F 97.4 F L Pulse Rate 74 158 H 143 H Respiratory Rate 23 28 H 27 H Blood Pressure 173/81 H 106/59 L 100/64 Pulse Oximetry 95 97 99 11/06/17 11:22 Temperature 97.6 F Pulse Rate 136 H Respiratory Rate 19 Blood Pressure 117/76 Pulse Oximetry 99 Intake & Output 11/05/17 11/06/17 11/06/17 18:59 06:59 18:59 Intake Total 1700 / 1700 1000 / 1000 500 / 500 Balance 1700 / 1700 1000 / 1000 500 / 500 Weight 58.6 kg Intake: IV 1200 / 1200 1000 / 1000 100 / 100 Protonix Inj 80 MG In NS Inj 200 / 200 100 / 100 100 ML @ 10 mls/hr IV.CONT Q10H RICH Rx#:[id number] NS Inj 1,000 ML @ 84 mls/hr IV. 1000 / 1000 1000 / 1000 CONT .[id number] RICH Rx#:[id number] Oral 500 / 500 Intake (Blood Product) Amt 400 / 400 Rbc As-3 Leukoreduced Unit 400 / 400 [id number] Rbc As-3 Leukoreduced Unit 0 / 0 [id number] Other: # Voids 5 3 Date of Last Bowel Movement 11/05/17 11/06/17 11/06/17 # Bowel Movements 1 1 - Constitutional mild distress - Routine HEENT Exam Head: Present: normocephalic, atraumatic - Routine Respiratory Exam Absent: accessory muscle use - Routine Cardiovascular Exam Present: irregularly irregular - Routine Abdominal Exam Present: soft, normoactive bowel sounds, distended. Absent: tenderness - Routine Skin Exam Present: dry, warm - Routine Neurological Exam Present: alert, oriented X3 <Pam Franks - Last Filed: 11/06/17 11:55> Vital signs: Vital Signs 11/05/17 16:00 11/05/17 20:00 11/06/17 00:00 Temperature 98.2 F 98.8 F 99.0 F Pulse Rate 76 90 66 Respiratory Rate 25 H 19 12 Blood Pressure 155/55 H 109/64 98/54 L Pulse Oximetry 99 99 96 11/06/17 04:00 11/06/17 08:00 11/06/17 10:22 Temperature 99.2 F 98.2 F 97.6 F Pulse Rate 79 74 158 H Respiratory Rate 18 23 28 H Blood Pressure 154/67 H 173/81 H 106/59 L Pulse Oximetry 96 95 97 11/06/17 10:37 11/06/17 11:22 11/06/17 12:00 Temperature 97.4 F L 97.6 F 97.8 F Pulse Rate 143 H 136 H 146 H Respiratory Rate 27 H 19 18 Blood Pressure 100/64 117/76 130/94 H Pulse Oximetry 99 99 98 Intake & Output 11/05/17 11/06/17 11/06/17 18:59 06:59 18:59 Intake Total 1700 / 1700 1000 / 1000 2150 / 2150 Balance 1700 / 1700 1000 / 1000 2150 / 2150 Weight 58.6 kg Intake: IV 1200 / 1200 1000 / 1000 1350 / 1350 Protonix Inj 80 MG In NS Inj 200 / 200 100 / 100 100 ML @ 10 mls/hr IV.CONT Q10H RICH Rx#:[id number] NS Inj 1,000 ML @ 84 mls/hr IV. 1000 / 1000 1000 / 1000 1000 / 1000 CONT .[id number] RICH Rx#:[id number] NS Inj 250 ML @ 15 mls/hr IV. 250 / 250 SIG ONCE RICH Rx#:[id number] Oral 500 / 500 Intake (Blood Product) Amt 800 / 800 Rbc As-3 Leukoreduced Unit 400 / 400 [id number] Rbc As-3 Leukoreduced Unit 400 / 400 [id number] Other: # Voids 5 3 Date of Last Bowel Movement 11/05/17 11/06/17 11/06/17 # Bowel Movements 1 1 <Aleksey Cortez - Last Filed: 11/06/17 15:47> Results - Labs CBC & Chem 7: 11/06/17 08:35 11/05/17 02:32 Laboratory Results - last 24 hr 11/05/17 11/06/17 11/06/17 15:32 03:37 08:35 WBC 7.0 RBC 2.48 L Hgb 8.9 L 7.6 L 8.0 L Hct 26.6 L 22.5 L 23.8 L MCV 91.0 MCH 30.5 MCHC 33.6 RDW 14.5 Plt Count 144 L MPV 9.1 Neut % (Auto) 71.0 H Lymph % (Auto) 20.5 [place] % (Auto) 6.2 Eos % (Auto) 1.5 Baso % (Auto) 0.8 Neut # (Auto) 5.0 Lymph # (Auto) 1.4 [place] # (Auto) 0.4 Eos # (Auto) 0.1 Baso # (Auto) 0.1 WBC Differential . Differential Comment Auto diff final Blood Type Antibody Screen MTS Gel Crossmatch 11/06/17 09:27 WBC RBC Hgb Hct MCV MCH MCHC RDW Plt Count MPV Neut % (Auto) Lymph % (Auto) [place] % (Auto) Eos % (Auto) Baso % (Auto) Neut # (Auto) Lymph # (Auto) [place] # (Auto) Eos # (Auto) Baso # (Auto) WBC Differential Differential Comment Blood Type A Positive Antibody Screen Negative MTS Gel Crossmatch See Detail Microbiology 11/03/17 12:24 Blood - Peripheral Aerobic Blood Culture - Preliminary No growth in 3 days 11/03/17 12:24 Blood - Peripheral Anaerobic Blood Culture - Preliminary No growth in 3 days 11/03/17 12:29 Blood - Peripheral Aerobic Blood Culture - Preliminary No growth in 3 days 11/03/17 12:29 Blood - Peripheral Anaerobic Blood Culture - Preliminary No growth in 3 days <Pam Franks - Last Filed: 11/06/17 11:55> - Labs CBC & Chem 7: 11/06/17 08:35 11/05/17 02:32 Laboratory Results - last 24 hr 11/05/17 11/06/17 11/06/17 15:32 03:37 08:35 WBC 7.0 RBC 2.48 L Hgb 8.9 L 7.6 L 8.0 L Hct 26.6 L 22.5 L 23.8 L MCV 91.0 MCH 30.5 MCHC 33.6 RDW 14.5 Plt Count 144 L MPV 9.1 Neut % (Auto) 71.0 H Lymph % (Auto) 20.5 [place] % (Auto) 6.2 Eos % (Auto) 1.5 Baso % (Auto) 0.8 Neut # (Auto) 5.0 Lymph # (Auto) 1.4 [place] # (Auto) 0.4 Eos # (Auto) 0.1 Baso # (Auto) 0.1 WBC Differential . Differential Comment Auto diff final Blood Type Antibody Screen MTS Gel Crossmatch 11/06/17 09:27 WBC RBC Hgb Hct MCV MCH MCHC RDW Plt Count MPV Neut % (Auto) Lymph % (Auto) [place] % (Auto) Eos % (Auto) Baso % (Auto) Neut # (Auto) Lymph # (Auto) [place] # (Auto) Eos # (Auto) Baso # (Auto) WBC Differential Differential Comment Blood Type A Positive Antibody Screen Negative MTS Gel Crossmatch See Detail Microbiology 11/03/17 12:24 Blood - Peripheral Aerobic Blood Culture - Preliminary No growth in 3 days 11/03/17 12:24 Blood - Peripheral Anaerobic Blood Culture - Preliminary No growth in 3 days 11/03/17 12:29 Blood - Peripheral Aerobic Blood Culture - Preliminary No growth in 3 days 11/03/17 12:29 Blood - Peripheral Anaerobic Blood Culture - Preliminary No growth in 3 days <Aleksey Cortez - Last Filed: 11/06/17 15:47> Assessment and Plan - Plan - Acute GI bleed-woke up at 0600 this morning feeling notably weak with bright red and dark rectal bleeding . Rectal bleeding associated with lower abdominal cramping and generalized abdominal tenderness. pt denies hx of GI bleeding in the past. Denies taking any blood thinners or Aspirin. Denies ever having had upper or lower endoscopy. Hgb 10.1, Hct 30 which is baseline for patient. Patient denies nausea,vomiting or diarrhea. She endorses having constipation with hard stools intermittently over the last 3-4 months. Pt denies unintended weight loss. Patient denies difficulty swallowing or heartburn. Workup revealed elevated Troponin 0.11, BNP 256. On arrival to ER, pt was noted to be in Afib with RVR which resolved spontaneously. CT abdomen and pelvis--> negative for Ischemic Colitis or Diverticulitis. - Elevated Troponin and BNP- Abnormal findings on EKG on arrival to ER. Pt noted to be in Afib with RVR. Afib resolved spontaneously. 11/03/17. Chest CT negative for pulmonary embolism. Doppler study negative for DVT - Hx of TIA per pts daughter [address] head 11/03/17 1. 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 Stroke could be similar between 3 and 7 days in age. 2. I have no prior studies for comparison. (11/06) Pt resting in bed S/P EGD and colonoscopy yesterday. Denies any nausea or vomiting. Poor appetite, her daughter brought her food from [employer] but she does not feel like eating. Complaining of pain in her abdomen. Pt has not had BM since GI procedures yesterday. Some drop in H/H- 2 U PRBCs ordered and transfusing. Pt in a-fib with RVR, cardiology following EGD (11/05) Near circumferential mass, measuring 3 X 3cm in size, was found in the distal esophagus; multiple biopsies were performed. Large ulcer was found in the gastric fundus. Normal duodenal mucosa in the bulb and second portion of the duodenum. Retroflexed views revealed an ulcer Colonoscopy (11/05) Severe diverticulosis was noted throughout the entire examined colon. 2 x 2cm abnormal mucosa was found at the cecum; The mucosa was congested, edematous and erythematous; multiple biopsies were performed using cold forceps. Two semi-pedunculated polyps were found in the sigmoid colon; polypectomy was performed using snare cautery. Internal and external hemorrhoids Pt denies history of smoking. Denies personal or family history of cancer. Plan: EGD and colon biopsy pending Diet as tolerated Monitor H/H Monitor for further GIB Further recommendations pending pathology results and clinical course Pt has been seen and examined by myself and Dr. Cortez and this note is written on his behalf <Pam Franks - Last Filed: 11/06/17 11:55> - Plan Seen and examined with STAMP PRESSER< await biopsies. Concern for GE junction cancer. Monitor labs The exam, history, and the medical decision-making described in the above note were completed with the assistance of the mid-level provider. I reviewed and agree with the findings presented. I attest that I had a [id number] encounter with the patient on the same day, and personally performed and documented my assessment and findings in the medical record. <Aleksey Cortez - Last Filed: 11/06/17 15:47>
[2017-11-06] MEDS ORDERED: Metoprolol Inj 5 MG/5 ML Vial IV.PUSH ONE (13:15)
[2017-11-07] MEDS: Sod Chloride 0.9% Inj 1,000 ML IV.CONT SCH ×2 (03:14→16:05)
[2017-11-07] MEDS: Pantoprazole Inj 80 MG in Sodium Chlor 0.9% Inj 100 ML IV.CONT SCH ×5 (03:43→22:07)
[2017-11-07] MEDS: Chlorhexidine Gluconate 2% 1 Pack (2 Cloths) TOPICAL SCH (04:00)
--- NOTE | 2017-11-07 08:55 | P.PNIM ---
Subjective Interval history: f/u; GI bleed looks and feels much better today. no further rectal bleed. has minimal abdominal pain. d/w the RN and no acute issues over night. Physical Exam Vital signs: Vital Signs 11/06/17 10:22 11/06/17 10:37 11/06/17 11:22 Temperature 97.6 F 97.4 F L 97.6 F Pulse Rate 158 H 143 H 136 H Respiratory Rate 28 H 27 H 19 Blood Pressure 106/59 L 100/64 117/76 Pulse Oximetry 97 99 99 11/06/17 12:00 11/06/17 16:00 11/06/17 20:00 Temperature 97.8 F 97.9 F 98.0 F Pulse Rate 146 H 100 H 116 H Respiratory Rate 18 22 28 H Blood Pressure 130/94 H 132/58 L 128/58 L Pulse Oximetry 98 94 L 95 11/07/17 00:00 11/07/17 04:00 Temperature 98.1 F 98.6 F Pulse Rate 82 100 H Respiratory Rate 26 H 25 H Blood Pressure 136/71 147/64 H Pulse Oximetry 95 93 L Intake & Output 11/06/17 11/07/17 11/07/17 18:59 06:59 18:59 Intake Total 3150 / 3150 1360 / 1360 Output Total 925 / 925 Balance 2225 / 2225 1360 / 1360 Weight 58.5 kg Intake: IV 1450 / 1450 1100 / 1100 Protonix Inj 80 MG In NS Inj 200 / 200 100 / 100 100 ML @ 10 mls/hr IV.CONT Q10H RICH Rx#:[id number] NS Inj 1,000 ML @ 84 mls/hr IV. 1000 / 1000 1000 / 1000 CONT .[id number] RICH Rx#:[id number] NS Inj 250 ML @ 15 mls/hr IV. 250 / 250 SIG ONCE RICH Rx#:[id number] Oral 900 / 900 260 / 260 Intake (Blood Product) Amt 800 / 800 Rbc As-3 Leukoreduced Unit 400 / 400 [id number] Rbc As-3 Leukoreduced Unit 400 / 400 [id number] Output: Urine 925 / 925 Other: # Voids 3 6 Date of Last Bowel Movement 11/06/17 11/06/17 # Bowel Movements 0 - Constitutional no acute distress - Routine Respiratory Exam Present: CTA bilaterally - Routine Cardiovascular Exam Present: RRR - Routine Abdominal Exam Present: soft - Routine Extremities Exam Comments: no pedal edema. - Routine Neurological Exam Present: alert, oriented X3 Results - Labs CBC & Chem 7: 11/06/17 08:35 11/05/17 02:32 Laboratory Results - last 24 hr 11/06/17 11/06/17 08:35 09:27 Hgb 8.0 L Hct 23.8 L Blood Type A Positive Antibody Screen Negative MTS Gel Crossmatch See Detail Microbiology 11/03/17 12:24 Blood - Peripheral Aerobic Blood Culture - Preliminary No growth in 3 days 11/03/17 12:24 Blood - Peripheral Anaerobic Blood Culture - Preliminary No growth in 3 days 11/03/17 12:29 Blood - Peripheral Aerobic Blood Culture - Preliminary No growth in 3 days 11/03/17 12:29 Blood - Peripheral Anaerobic Blood Culture - Preliminary No growth in 3 days Assessment and Plan - Plan Acute encephalopathy- improved. 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 -DuoNeb every 6 hours PRN -Chest x-ray did show evidence of pulmonary vascular congestion but clinically patient is not shortness of breath -CTA negative for PE Atrial fibrillation with RVR- now HR is better. -echo with EF 55% -no anticoagulation due to GI bleed. -strated on Cardizem -will continue to monitor. -cardiology following. Lower GI bleed anemia- acute due to GI bleed s/p EGD with distal esophageal mass and gastric ulcer s/p colonoscopy; s/p polypectomy sigmoid colon with abnormal cecum -continue PPI. - will follow the biopsy -s/p PRBC transfusion with improved H/H- continue to monitor. -cardiology following. hypophosphatemia- replaced- hypernatremia- improved -Monitor renal function closely. -replace electrolytes as needed. -Fluid resuscitation as above PROPH: -Bilateral lower extremity SCDs. Chemical DVT prophylaxis is contraindicated at this time due to GI bleed -Continue IV Protonix infusion will transfer to floor. Discharge Planning: possible dc home with C within the next 24-48 hrs if stable and cleared by GI.
[2017-11-07] MEDS: dilTIAZem 30 MG Tablet PO SCH ×4 (09:48→20:46)
--- NOTE | 2017-11-07 11:26 | P.PNCA ---
Subjective Interval history: Afib converted to sinus rhythm Appears more comfortable Physical Exam Vital signs: Vital Signs 11/06/17 12:00 11/06/17 16:00 11/06/17 20:00 Temperature 97.8 F 97.9 F 98.0 F Pulse Rate 146 H 100 H 116 H Respiratory Rate 18 22 28 H Blood Pressure 130/94 H 132/58 L 128/58 L Pulse Oximetry 98 94 L 95 11/07/17 00:00 11/07/17 04:00 11/07/17 08:00 Temperature 98.1 F 98.6 F 97.6 F Pulse Rate 82 100 H 79 Respiratory Rate 26 H 25 H 25 H Blood Pressure 136/71 147/64 H 153/66 H Pulse Oximetry 95 93 L Intake & Output 11/06/17 11/07/17 11/07/17 18:59 06:59 18:59 Intake Total 3150 / 3150 1360 / 1360 100 / 100 Output Total 925 / 925 Balance 2225 / 2225 1360 / 1360 100 / 100 Weight 58.5 kg Intake: IV 1450 / 1450 1100 / 1100 100 / 100 Protonix Inj 80 MG In NS Inj 200 / 200 100 / 100 100 / 100 100 ML @ 10 mls/hr IV.CONT Q10H RICH Rx#:[id number] NS Inj 1,000 ML @ 84 mls/hr IV. 1000 / 1000 1000 / 1000 CONT .[id number] RICH Rx#:[id number] NS Inj 250 ML @ 15 mls/hr IV. 250 / 250 SIG ONCE RICH Rx#:[id number] Oral 900 / 900 260 / 260 Intake (Blood Product) Amt 800 / 800 Rbc As-3 Leukoreduced Unit 400 / 400 [id number] Rbc As-3 Leukoreduced Unit 400 / 400 [id number] Output: Urine 925 / 925 Other: # Voids 3 6 Date of Last Bowel Movement 11/06/17 11/06/17 # Bowel Movements 0 Narrative: GENERAL: NAD, AAOx3 SKIN: Warm and dry. HEAD: Atraumatic. Normocephalic. EYES: Pupils equal and round. No scleral icterus. No injection or drainage. ENT: No nasal bleeding or discharge. Mucous membranes pink and moist. NECK: Trachea midline. No JVD. CARDIOVASCULAR: Regular rhythm. 1/6 crescendo-decrescendo murmur to the RSB RESPIRATORY: No accessory muscle use. Clear to auscultation. Breath sounds equal bilaterally. GASTROINTESTINAL: Abdomen soft, non-tender, nondistended. Hepatic and splenic margins not palpable. MUSCULOSKELETAL: Extremities without clubbing, cyanosis, or edema. No obvious deformities. NEUROLOGICAL: Awake and alert. No obvious cranial nerve deficits. Motor grossly within normal limits. Five out of 5 muscle strength in the arms and legs. Normal speech. PSYCHIATRIC: Appropriate mood and affect; insight and judgment normal. Assessment and Plan - Assessment (1) Lower GI bleed Code(s): K92.2 - Gastrointestinal hemorrhage, unspecified Status: Acute (2) Atrial fibrillation with rapid ventricular response Code(s): I48.91 - Unspecified atrial fibrillation Status: Acute (3) GI bleeding Code(s): K92.2 - Gastrointestinal hemorrhage, unspecified Status: Acute (4) Anemia Code(s): D64.9 - Anemia, unspecified Status: Acute (5) Depression Code(s): F32.9 - Major depressive disorder, single episode, unspecified Status : Acute (6) Elevated troponin Code(s): R74.8 - Abnormal levels of other serum enzymes Status: Acute - Plan 1) GI bleed Found to have a mass with ulcer Biopsy pending 2) Afib with RVR on admission Currently Afib with RVR again Cardizem PO Can be changed to Cardizem CD 120mg on discharge Most likely due to overall illness Not an anticoagulation candidate due to GI mass/bleed If possible would place on ASA 81mg, but might not be possible with current mass/ulcer 3) Elevated troponins Most likely Type 2 in nature Con't medical management per her wishes
[2017-11-07 11:33] LABS: Hematocrit 36.1 % (35.0-46.0); Hemoglobin 12.3 gm/dL (11.6-15.3)
--- NOTE | 2017-11-07 12:24 | P.PNPAL ---
Reason for Visit Reason for visit: a. To assist with evaluation and management of symptoms including: Pain, weakness/fatigue, depression b. To assist medical decision maker(s) with: better understanding of current medical conditions; weighing benefits/burdens of medical treatment options; making medical treatment decisions. Subjective Subjective/Interval History: INTERVAL NOTE: The patient remains in a cheery mood today, smiling, and overall feels better. She denies pain at this time. The patient had recurrent A. fib with RVR but it has converted to sinus again. He hopes to get out of the hospital soon. Transfused again, hemoglobin now 12.3. Report from the EGD indicates a circumferential, ulcerated, fungating, friable mass 3 x 3 cm in the distal esophagus, and biopsies were obtained. In addition there is a deep ulceration in the gastric fundus. Report from the colonoscopy indicates she has numerous diverticuli, and there is a 3 cm abnormal area in the cecum that was also biopsied. Advance Directives Health Care Surrogate Name and Number: Daughter Shala Rosa Objective Vital Signs: Vital Signs 11/06/17 16:00 11/06/17 20:00 11/07/17 00:00 Temperature 97.9 F 98.0 F 98.1 F Pulse Rate 100 H 116 H 82 Respiratory Rate 22 28 H 26 H Blood Pressure 132/58 L 128/58 L 136/71 Pulse Oximetry 94 L 95 95 11/07/17 04:00 11/07/17 08:00 Temperature 98.6 F 97.6 F Pulse Rate 100 H 79 Respiratory Rate 25 H 25 H Blood Pressure 147/64 H 153/66 H Pulse Oximetry 93 L Intake & Output 11/06/17 11/07/17 11/07/17 18:59 06:59 18:59 Intake Total 3150 / 3150 1360 / 1360 100 / 100 Output Total 925 / 925 Balance 2225 / 2225 1360 / 1360 100 / 100 Weight 58.5 kg Intake: IV 1450 / 1450 1100 / 1100 100 / 100 Protonix Inj 80 MG In NS Inj 200 / 200 100 / 100 100 / 100 100 ML @ 10 mls/hr IV.CONT Q10H RICH Rx#:[id number] NS Inj 1,000 ML @ 84 mls/hr IV. 1000 / 1000 1000 / 1000 CONT .[id number] RICH Rx#:[id number] NS Inj 250 ML @ 15 mls/hr IV. 250 / 250 SIG ONCE RICH Rx#:[id number] Oral 900 / 900 260 / 260 Intake (Blood Product) Amt 800 / 800 Rbc As-3 Leukoreduced Unit 400 / 400 [id number] Rbc As-3 Leukoreduced Unit 400 / 400 [id number] Output: Urine 925 / 925 Other: # Voids 3 6 Date of Last Bowel Movement 11/06/17 11/06/17 # Bowel Movements 0 Physical Exam: CONSTITUTIONAL/GENERAL: This is an elderly, smiling patient, in no apparent distress. TUBES/LINES/DRAINS: Peripheral IV, nasal oxygen CARDIOVASCULAR: Regular rate and rhythm without murmurs, gallops, or rubs. No JVD. Peripheral pulses symmetric. RESPIRATORY/CHEST: Symmetric, unlabored respirations. A couple scattered rhonchi. GASTROINTESTINAL: Abdomen soft, non-tender, nondistended. No hepato-splenomegaly , or palpable masses. No guarding. Bowel sounds present. MUSCULOSKELETAL: Extremities without clubbing, cyanosis, or edema. No joint tenderness or effusion noted. No calf tenderness. No mottling or clubbing. NEUROLOGICAL: Awake and alert. Motor and sensory grossly within normal limits. Follows commands. Cognitively sharp. Moves all extremities. Her speech is just slightly slurred for her but easily understandable PSYCHIATRIC: No obvious anxiety/depression. No apparent hallucinations or other psychotic thought process. Diagnostic Tests Laboratory: Laboratory Results - last 72 hr 11/04/17 11/05/17 11/05/17 19:28 02:32 02:32 WBC 6.1 RBC 2.68 L Hgb 8.5 L 8.1 L Hct 25.4 L 24.6 L MCV 91.5 MCH 30.2 MCHC 33.0 RDW 14.4 Plt Count 153 MPV 9.4 Neut % (Auto) 71.3 H Lymph % (Auto) 20.0 Hendricks % (Auto) 6.3 Eos % (Auto) 1.5 Baso % (Auto) 0.9 Neut # (Auto) 4.4 Lymph # (Auto) 1.2 Hendricks # (Auto) 0.4 Eos # (Auto) 0.1 Baso # (Auto) 0.1 WBC Differential . Differential Comment Auto diff final Sodium 148 H Potassium 3.6 Chloride 114 H Carbon Dioxide 25.7 Anion Gap 8 BUN 8 Creatinine 0.61 Estimated GFR Greater than 89 Random Glucose 88 Calcium 7.9 L Blood Type Antibody Screen MTS Gel Crossmatch 11/05/17 11/06/17 11/06/17 15:32 03:37 08:35 WBC 7.0 RBC 2.48 L Hgb 8.9 L 7.6 L 8.0 L Hct 26.6 L 22.5 L 23.8 L MCV 91.0 MCH 30.5 MCHC 33.6 RDW 14.5 Plt Count 144 L MPV 9.1 Neut % (Auto) 71.0 H Lymph % (Auto) 20.5 Hendricks % (Auto) 6.2 Eos % (Auto) 1.5 Baso % (Auto) 0.8 Neut # (Auto) 5.0 Lymph # (Auto) 1.4 Hendricks # (Auto) 0.4 Eos # (Auto) 0.1 Baso # (Auto) 0.1 WBC Differential . Differential Comment Auto diff final Sodium Potassium Chloride Carbon Dioxide Anion Gap BUN Creatinine Estimated GFR Random Glucose Calcium Blood Type Antibody Screen MTS Gel Crossmatch 11/06/17 11/07/17 09:27 11:18 WBC RBC Hgb 12.3 D Hct 36.1 MCV MCH MCHC RDW Plt Count MPV Neut % (Auto) Lymph % (Auto) Hendricks % (Auto) Eos % (Auto) Baso % (Auto) Neut # (Auto) Lymph # (Auto) Hendricks # (Auto) Eos # (Auto) Baso # (Auto) WBC Differential Differential Comment Sodium Potassium Chloride Carbon Dioxide Anion Gap BUN Creatinine Estimated GFR Random Glucose Calcium Blood Type A Positive Antibody Screen Negative MTS Gel Crossmatch See Detail Result Diagrams: 11/07/17 11:18 11/05/17 02:32 Microbiology: Microbiology 11/03/17 12:24 Aerobic Blood Culture - Preliminary Blood - Peripheral No growth in 4 days Anaerobic Blood Culture - Preliminary No growth in 4 days 11/03/17 12:29 Aerobic Blood Culture - Preliminary Blood - Peripheral No growth in 4 days Anaerobic Blood Culture - Preliminary No growth in 4 days Procedures: EGD with biopsy 11/05/17 Colonoscopy with biopsy 11/05/17 Assessment and Plan - Disease Oriented Problem List (1) GI bleeding Comment: EGD and colonoscopy, both with biopsies, 11/04/17 (2) Anemia Comment: Dropped 2 g of hemoglobin in the first 24 hours (3) Altered mental state (4) Atrial fibrillation with rapid ventricular response Comment: Resolved (5) Meningioma Comment: Since at least 2010 on scans - Symptom Scale (2) Pain Comment: Resolved Pertinent Non-Medical Issues: Psychosocial: Originally from [place], has lived in this area for about 30 years. Has lived alone the last 20 years since she was . 6 children, 4 living in the [place] area, and a son and daughter living locally and close to the patient. Spiritual: The patient reports that her belief in God is important for her; "He will take me when He is ready." Legal: The patient has capacity for decision-making at this time. On 11/04/17, she is designating her daughter Shala as HCS. Ethical issues impacting care: none Important Contacts: Daughter/HCS: Shala Rosa Daughter: Awilda Parr [phone] Son: Farhan Boyce [phone] Prognosis: Her overall prognosis because of her advanced age and general debility is rather guarded. The ultimate prognosis will depend on the stability of her heart and the etiology and treatment options for her GI bleeding, and the extent of what appears to be an esophageal malignancy. Code Status: Full Code Plan: * Full CODE, but she wants to readdress this question after more definitive diagnoses and prognoses are apparent with respect to her GI (biopsies) and cardiac issues. * GOALS: The patient wants to remain FULL CODE for now, and wants to await biopsy reports before making any further decisions. She does understand that it is likely that she has a GI malignancy; biopsies are pending. The most important thing for her is to be able to return home and function independently again and to not be in pain. * DECISION-MAKING: The patient has capacity for decision-making at this time. She has designated her daughter Shala as HCS. * SYMPTOMS: The patient's pain is resolved, she is no longer dyspneic, and her depression seems chronic but stable. I have no further medication recommendations at this time. * Palliative Care will continue to follow the patient during this hospitalization. Time Spent Total Floor Time (mins): 27 Face to Face Time (mins): 14 >50% Time in Counseling or Coordination of Care: Yes Attestation Attestation: To help prompt me to consider important information that might be impacting today's encounter and assessment, information from prior notes written by myself or my colleagues may have been "brought forward" into today's note. My signature on this note, however, is an attestation that I personally performed the exam, history, and/or decision-making noted today, and, unless otherwise indicated, the interactions with patient, family, and staff as well as the review of records all occurred today. I also attest that the listed assessment and stated plan reflect my best clinical judgment today based on the combination of historical information, prior notes, and today's exam/ interactions. When time spent is documented, it refers only to time spent today by the signer, or if indicated, combined time spent today by collaborating physician/nurse practitioner.
--- NOTE | 2017-11-07 13:13 | P.PNGI ---
Subjective Interval history: Pt in bedside chair, seemingly in better mood today. Denies nausea, vomiting. Reports some improvement in appetite. No BM <Pam Franks - Last Filed: 11/07/17 13:11> Physical Exam Vital signs: Vital Signs 11/06/17 16:00 11/06/17 20:00 11/07/17 00:00 Temperature 97.9 F 98.0 F 98.1 F Pulse Rate 100 H 116 H 82 Respiratory Rate 22 28 H 26 H Blood Pressure 132/58 L 128/58 L 136/71 Pulse Oximetry 94 L 95 95 11/07/17 04:00 11/07/17 08:00 Temperature 98.6 F 97.6 F Pulse Rate 100 H 79 Respiratory Rate 25 H 25 H Blood Pressure 147/64 H 153/66 H Pulse Oximetry 93 L Intake & Output 11/06/17 11/07/17 11/07/17 18:59 06:59 18:59 Intake Total 3150 / 3150 1360 / 1360 100 / 100 Output Total 925 / 925 Balance 2225 / 2225 1360 / 1360 100 / 100 Weight 58.5 kg Intake: IV 1450 / 1450 1100 / 1100 100 / 100 Protonix Inj 80 MG In NS Inj 200 / 200 100 / 100 100 / 100 100 ML @ 10 mls/hr IV.CONT Q10H RICH Rx#:[id number] NS Inj 1,000 ML @ 84 mls/hr IV. 1000 / 1000 1000 / 1000 CONT .[id number] RICH Rx#:[id number] NS Inj 250 ML @ 15 mls/hr IV. 250 / 250 SIG ONCE RICH Rx#:[id number] Oral 900 / 900 260 / 260 Intake (Blood Product) Amt 800 / 800 Rbc As-3 Leukoreduced Unit 400 / 400 [id number] Rbc As-3 Leukoreduced Unit 400 / 400 [id number] Output: Urine 925 / 925 Other: # Voids 3 6 Date of Last Bowel Movement 11/06/17 11/06/17 # Bowel Movements 0 - Constitutional no acute distress - Routine HEENT Exam Head: Present: normocephalic, atraumatic - Routine Respiratory Exam Absent: accessory muscle use - Routine Abdominal Exam Present: soft, normoactive bowel sounds. Absent: tenderness, distended - Routine Skin Exam Present: dry, warm - Routine Neurological Exam Present: alert, oriented X3 <Pam Franks - Last Filed: 11/07/17 13:11> Vital signs: Vital Signs 11/06/17 20:00 11/07/17 00:00 11/07/17 04:00 Temperature 98.0 F 98.1 F 98.6 F Pulse Rate 116 H 82 100 H Respiratory Rate 28 H 26 H 25 H Blood Pressure 128/58 L 136/71 147/64 H Pulse Oximetry 95 95 93 L 11/07/17 08:00 11/07/17 12:00 Temperature 97.6 F 98.3 F Pulse Rate 79 75 Respiratory Rate 25 H 18 Blood Pressure 153/66 H 144/65 H Pulse Oximetry 98 Intake & Output 11/06/17 11/07/17 11/07/17 18:59 06:59 18:59 Intake Total 3150 / 3150 1360 / 1360 1200 / 1200 Output Total 925 / 925 Balance 2225 / 2225 1360 / 1360 1200 / 1200 Weight 58.5 kg Intake: IV 1450 / 1450 1100 / 1100 1200 / 1200 Protonix Inj 80 MG In NS Inj 200 / 200 100 / 100 200 / 200 100 ML @ 10 mls/hr IV.CONT Q10H RICH Rx#:[id number] NS Inj 1,000 ML @ 84 mls/hr IV. 1000 / 1000 1000 / 1000 1000 / 1000 CONT .[id number] RICH Rx#:[id number] NS Inj 250 ML @ 15 mls/hr IV. 250 / 250 SIG ONCE RICH Rx#:[id number] Oral 900 / 900 260 / 260 Intake (Blood Product) Amt 800 / 800 Rbc As-3 Leukoreduced Unit 400 / 400 [id number] Rbc As-3 Leukoreduced Unit 400 / 400 [id number] Output: Urine 925 / 925 Other: # Voids 3 6 Date of Last Bowel Movement 11/06/17 11/06/17 # Bowel Movements 0 <Aleksey Cortez - Last Filed: 11/07/17 17:07> Results - Labs CBC & Chem 7: 11/07/17 11:18 11/05/17 02:32 Laboratory Results - last 24 hr 11/07/17 11:18 Hgb 12.3 D Hct 36.1 Microbiology 11/03/17 12:24 Blood - Peripheral Aerobic Blood Culture - Preliminary No growth in 4 days 11/03/17 12:24 Blood - Peripheral Anaerobic Blood Culture - Preliminary No growth in 4 days 11/03/17 12:29 Blood - Peripheral Aerobic Blood Culture - Preliminary No growth in 4 days 11/03/17 12:29 Blood - Peripheral Anaerobic Blood Culture - Preliminary No growth in 4 days <Pam Franks - Last Filed: 11/07/17 13:11> - Labs CBC & Chem 7: 11/07/17 11:18 11/05/17 02:32 Laboratory Results - last 24 hr 11/07/17 11:18 Hgb 12.3 D Hct 36.1 Microbiology 11/03/17 12:24 Blood - Peripheral Aerobic Blood Culture - Preliminary No growth in 4 days 11/03/17 12:24 Blood - Peripheral Anaerobic Blood Culture - Preliminary No growth in 4 days 11/03/17 12:29 Blood - Peripheral Aerobic Blood Culture - Preliminary No growth in 4 days 11/03/17 12:29 Blood - Peripheral Anaerobic Blood Culture - Preliminary No growth in 4 days <Aleksey Cortez - Last Filed: 11/07/17 17:07> Assessment and Plan - Plan - Acute GI bleed-woke up at 0600 this morning feeling notably weak with bright red and dark rectal bleeding . Rectal bleeding associated with lower abdominal cramping and generalized abdominal tenderness. pt denies hx of GI bleeding in the past. Denies taking any blood thinners or Aspirin. Denies ever having had upper or lower endoscopy. Hgb 10.1, Hct 30 which is baseline for patient. Patient denies nausea,vomiting or diarrhea. She endorses having constipation with hard stools intermittently over the last 3-4 months. Pt denies unintended weight loss. Patient denies difficulty swallowing or heartburn. Workup revealed elevated Troponin 0.11, BNP 256. On arrival to ER, pt was noted to be in Afib with RVR which resolved spontaneously. CT abdomen and pelvis--> negative for Ischemic Colitis or Diverticulitis. - Elevated Troponin and BNP- Abnormal findings on EKG on arrival to ER. Pt noted to be in Afib with RVR. Afib resolved spontaneously. 11/03/17. Chest CT negative for pulmonary embolism. Doppler study negative for DVT - Hx of TIA per pts daughter [address] head 11/03/17 1. 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 Stroke could be similar between 3 and 7 days in age. 2. I have no prior studies for comparison. (11/06) Pt resting in bed S/P EGD and colonoscopy yesterday. Denies any nausea or vomiting. Poor appetite, her daughter brought her food from [employer] but she does not feel like eating. Complaining of pain in her abdomen. Pt has not had BM since GI procedures yesterday. Some drop in H/H- 2 U PRBCs ordered and transfusing. Pt in a-fib with RVR, cardiology following EGD (11/05) Near circumferential mass, measuring 3 X 3cm in size, was found in the distal esophagus; multiple biopsies were performed. Large ulcer was found in the gastric fundus. Normal duodenal mucosa in the bulb and second portion of the duodenum. Retroflexed views revealed an ulcer Colonoscopy (11/05) Severe diverticulosis was noted throughout the entire examined colon. 2 x 2cm abnormal mucosa was found at the cecum; The mucosa was congested, edematous and erythematous; multiple biopsies were performed using cold forceps. Two semi-pedunculated polyps were found in the sigmoid colon; polypectomy was performed using snare cautery. Internal and external hemorrhoids Pt denies history of smoking. Denies personal or family history of cancer. 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 GI procedures as above. Palliative care following, note states that pt wants to await biopsy results before making any further treatments regarding goals of treatment. Plan: EGD and colon biopsy pending Diet as tolerated Monitor H/H Monitor for further GIB Further recommendations pending pathology results and clinical course Pt has been seen and examined by myself and Dr. Cortez and this note is written on his behalf <Pam Franks - Last Filed: 11/07/17 13:11> - Plan NO active bleeding. Biopsies pending. Diet as tolerated. Monitor labs. <Aleksey Cortez - Last Filed: 11/07/17 17:07>
[2017-11-08] MEDS: Pantoprazole Inj 80 MG in Sodium Chlor 0.9% Inj 100 ML IV.CONT SCH ×4 (00:54→21:57)
[2017-11-08] MEDS: Sod Chloride 0.9% Inj 1,000 ML IV.CONT SCH ×3 (03:21→17:58)
[2017-11-08] MEDS: Chlorhexidine Gluconate 2% 1 Pack (2 Cloths) TOPICAL SCH (04:55)
[2017-11-08] MEDS: dilTIAZem 30 MG Tablet PO SCH ×4 (09:12→21:58)
--- NOTE | 2017-11-08 12:16 | P.PNGI ---
Subjective Interval history: No specific symptoms, tolerating diet well. Physical Exam Vital signs: Vital Signs 11/07/17 16:00 11/07/17 20:00 11/07/17 22:00 Temperature 98.4 F 98.6 F Pulse Rate 68 76 75 Respiratory Rate 24 24 Blood Pressure 151/65 H 164/78 H Pulse Oximetry 11/07/17 22:17 11/08/17 00:00 11/08/17 04:00 Temperature 98.1 F 98 F 98.8 F Pulse Rate 75 81 Respiratory Rate 20 18 18 Blood Pressure 175/77 H 178/78 H 177/78 H Pulse Oximetry 91 L 94 L 91 L 11/08/17 08:00 Temperature 98 F Pulse Rate 76 Respiratory Rate 18 Blood Pressure 165/76 H Pulse Oximetry 93 L Intake & Output 11/07/17 11/08/17 11/08/17 18:59 06:59 18:59 Intake Total 1600 / 1600 1200 / 1200 Output Total 600 / 600 Balance 1600 / 1600 600 / 600 Weight 58.2 kg Intake: IV 1200 / 1200 1200 / 1200 Protonix Inj 80 MG In NS Inj 200 / 200 200 / 200 100 ML @ 10 mls/hr IV.CONT Q10H RICH Rx#:[id number] NS Inj 1,000 ML @ 84 mls/hr IV. 1000 / 1000 1000 / 1000 CONT .[id number] RICH Rx#:[id number] Oral 400 / 400 0 / 0 Output: Urine 600 / 600 Other: # Voids 3 Date of Last Bowel Movement 11/06/17 # Bowel Movements 0 Narrative: GENERAL: NAD, AAOx3 SKIN: Warm and dry. HEAD: Atraumatic. Normocephalic. EYES: Pupils equal and round. No scleral icterus. No injection or drainage. ENT: No nasal bleeding or discharge. Mucous membranes pink and moist. NECK: Trachea midline. No JVD. CARDIOVASCULAR: Regular rhythm. 1/6 crescendo-decrescendo murmur to the RSB RESPIRATORY: No accessory muscle use. Clear to auscultation. Breath sounds equal bilaterally. GASTROINTESTINAL: Abdomen soft, non-tender, nondistended. Hepatic and splenic margins not palpable. MUSCULOSKELETAL: Extremities without clubbing, cyanosis, or edema. No obvious deformities. NEUROLOGICAL: Awake and alert. No obvious cranial nerve deficits. Motor grossly within normal limits. Five out of 5 muscle strength in the arms and legs. Normal speech. PSYCHIATRIC: Appropriate mood and affect; insight and judgment normal. Results - Labs CBC & Chem 7: 11/07/17 11:18 11/05/17 02:32 Microbiology 11/03/17 12:24 Blood - Peripheral Aerobic Blood Culture - Final No growth in 5 days 11/03/17 12:24 Blood - Peripheral Anaerobic Blood Culture - Final No growth in 5 days 11/03/17 12:29 Blood - Peripheral Aerobic Blood Culture - Final No growth in 5 days 11/03/17 12:29 Blood - Peripheral Anaerobic Blood Culture - Final No growth in 5 days Assessment and Plan - Plan Acute GI bleed-woke up at 0600 this morning feeling notably weak with bright red and dark rectal bleeding . Rectal bleeding associated with lower abdominal cramping and generalized abdominal tenderness. pt denies hx of GI bleeding in the past. Denies taking any blood thinners or Aspirin. Denies ever having had upper or lower endoscopy. Hgb 10.1, Hct 30 which is baseline for patient. Patient denies nausea,vomiting or diarrhea. She endorses having constipation with hard stools intermittently over the last 3-4 months. Pt denies unintended weight loss. Patient denies difficulty swallowing or heartburn. Workup revealed elevated Troponin 0.11, BNP 256. On arrival to ER, pt was noted to be in Afib with RVR which resolved spontaneously. CT abdomen and pelvis--> negative for Ischemic Colitis or Diverticulitis. - Elevated Troponin and BNP- Abnormal findings on EKG on arrival to ER. Pt noted to be in Afib with RVR. Afib resolved spontaneously. 11/03/17. Chest CT negative for pulmonary embolism. Doppler study negative for DVT - Hx of TIA per pts daughter 6-[address] head 11/03/17 1. 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 Stroke could be similar between 3 and 7 days in age. 2. I have no prior studies for comparison. (11/06) Pt resting in bed S/P EGD and colonoscopy yesterday. Denies any nausea or vomiting. Poor appetite, her daughter brought her food from [employer] but she does not feel like eating. Complaining of pain in her abdomen. Pt has not had BM since GI procedures yesterday. Some drop in H/H- 2 U PRBCs ordered and transfusing. Pt in a-fib with RVR, cardiology following EGD (11/05) Near circumferential mass, measuring 3 X 3cm in size, was found in the distal esophagus; multiple biopsies were performed. Large ulcer was found in the gastric fundus. Normal duodenal mucosa in the bulb and second portion of the duodenum. Retroflexed views revealed an ulcer Colonoscopy (11/05) Severe diverticulosis was noted throughout the entire examined colon. 2 x 2cm abnormal mucosa was found at the cecum; The mucosa was congested, edematous and erythematous; multiple biopsies were performed using cold forceps. Two semi-pedunculated polyps were found in the sigmoid colon; polypectomy was performed using snare cautery. Internal and external hemorrhoids Pt denies history of smoking. Denies personal or family history of cancer. 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 GI procedures as above. Palliative care following, note states that pt wants to await biopsy results before making any further treatments regarding goals of treatment. Plan: Pathology results pending Diet as tolerated Monitor H/H Monitor for further GIB
--- NOTE | 2017-11-08 13:30 | P.PNCA ---
Subjective Interval history: No events overnight No complaints Sinus rhythm Physical Exam Vital signs: Vital Signs 11/07/17 16:00 11/07/17 20:00 11/07/17 22:00 Temperature 98.4 F 98.6 F Pulse Rate 68 76 75 Respiratory Rate 24 24 Blood Pressure 151/65 H 164/78 H Pulse Oximetry 11/07/17 22:17 11/08/17 00:00 11/08/17 04:00 Temperature 98.1 F 98 F 98.8 F Pulse Rate 75 81 Respiratory Rate 20 18 18 Blood Pressure 175/77 H 178/78 H 177/78 H Pulse Oximetry 91 L 94 L 91 L 11/08/17 08:00 Temperature 98 F Pulse Rate 76 Respiratory Rate 18 Blood Pressure 165/76 H Pulse Oximetry 93 L Intake & Output 11/07/17 11/08/17 11/08/17 18:59 06:59 18:59 Intake Total 1600 / 1600 1200 / 1200 Output Total 600 / 600 Balance 1600 / 1600 600 / 600 Weight 58.2 kg Intake: IV 1200 / 1200 1200 / 1200 Protonix Inj 80 MG In NS Inj 200 / 200 200 / 200 100 ML @ 10 mls/hr IV.CONT Q10H RICH Rx#:[id number] NS Inj 1,000 ML @ 84 mls/hr IV. 1000 / 1000 1000 / 1000 CONT .[id number] RICH Rx#:[id number] Oral 400 / 400 0 / 0 Output: Urine 600 / 600 Other: # Voids 3 Date of Last Bowel Movement 11/06/17 # Bowel Movements 0 Narrative: GENERAL: NAD, AAOx3 SKIN: Warm and dry. HEAD: Atraumatic. Normocephalic. EYES: Pupils equal and round. No scleral icterus. No injection or drainage. ENT: No nasal bleeding or discharge. Mucous membranes pink and moist. NECK: Trachea midline. No JVD. CARDIOVASCULAR: Regular rhythm. 1/6 crescendo-decrescendo murmur to the RSB RESPIRATORY: No accessory muscle use. Clear to auscultation. Breath sounds equal bilaterally. GASTROINTESTINAL: Abdomen soft, non-tender, nondistended. Hepatic and splenic margins not palpable. MUSCULOSKELETAL: Extremities without clubbing, cyanosis, or edema. No obvious deformities. NEUROLOGICAL: Awake and alert. No obvious cranial nerve deficits. Motor grossly within normal limits. Five out of 5 muscle strength in the arms and legs. Normal speech. PSYCHIATRIC: Appropriate mood and affect; insight and judgment normal. Assessment and Plan - Assessment (1) Lower GI bleed Code(s): K92.2 - Gastrointestinal hemorrhage, unspecified Status: Acute (2) Atrial fibrillation with rapid ventricular response Code(s): I48.91 - Unspecified atrial fibrillation Status: Acute (3) GI bleeding Code(s): K92.2 - Gastrointestinal hemorrhage, unspecified Status: Acute (4) Anemia Code(s): D64.9 - Anemia, unspecified Status: Acute (5) Depression Code(s): F32.9 - Major depressive disorder, single episode, unspecified Status : Acute (6) Elevated troponin Code(s): R74.8 - Abnormal levels of other serum enzymes Status: Acute - Plan 1) GI bleed Found to have a mass with ulcer Biopsy pending 2) Afib with RVR on admission Currently Afib with RVR again Cardizem PO Can be changed to Cardizem CD 120mg on discharge Most likely due to overall illness Not an anticoagulation candidate due to GI mass/bleed If possible would place on ASA 81mg, but might not be possible with current mass/ulcer 3) Elevated troponins Most likely Type 2 in nature Con't medical management per her wishes
--- NOTE | 2017-11-08 15:16 | P.PNIM ---
Subjective Interval history: Patient appears pleasant, she is oriented at her baseline according to her daughter but still little bit weaker than her baseline when it comes to ambulation. Patient would like to go home but there is pathology results from an esophageal and stomach biopsies pending. Physical Exam Vital signs: Vital Signs 11/07/17 16:00 11/07/17 20:00 11/07/17 22:00 Temperature 98.4 F 98.6 F Pulse Rate 68 76 75 Respiratory Rate 24 24 Blood Pressure 151/65 H 164/78 H Pulse Oximetry 11/07/17 22:17 11/08/17 00:00 11/08/17 04:00 Temperature 98.1 F 98 F 98.8 F Pulse Rate 75 81 Respiratory Rate 20 18 18 Blood Pressure 175/77 H 178/78 H 177/78 H Pulse Oximetry 91 L 94 L 91 L 11/08/17 08:00 Temperature 98 F Pulse Rate 76 Respiratory Rate 18 Blood Pressure 165/76 H Pulse Oximetry 93 L Intake & Output 11/07/17 11/08/17 11/08/17 18:59 06:59 18:59 Intake Total 1600 / 1600 1200 / 1200 Output Total 600 / 600 Balance 1600 / 1600 600 / 600 Weight 58.2 kg Intake: IV 1200 / 1200 1200 / 1200 Protonix Inj 80 MG In NS Inj 200 / 200 200 / 200 100 ML @ 10 mls/hr IV.CONT Q10H RICH Rx#:[id number] NS Inj 1,000 ML @ 84 mls/hr IV. 1000 / 1000 1000 / 1000 CONT .[id number] RICH Rx#:[id number] Oral 400 / 400 0 / 0 Output: Urine 600 / 600 Other: # Voids 3 Date of Last Bowel Movement 11/06/17 # Bowel Movements 0 Narrative: GENERAL: NAD, AAOx3 SKIN: Warm and dry. HEAD: Atraumatic. Normocephalic. EYES: Pupils equal and round. No scleral icterus. No injection or drainage. ENT: No nasal bleeding or discharge. Mucous membranes pink and moist. NECK: Trachea midline. No JVD. CARDIOVASCULAR: Normal sinus rhythm. 1/6 crescendo-decrescendo murmur to the RSB RESPIRATORY: No accessory muscle use. Clear to auscultation. Breath sounds equal bilaterally. GASTROINTESTINAL: Abdomen soft, non-tender, nondistended. Hepatic and splenic margins not palpable. MUSCULOSKELETAL: Extremities without clubbing, cyanosis, or edema. No obvious deformities. NEUROLOGICAL: Awake and alert. No obvious cranial nerve deficits. Motor grossly within normal limits. Five out of 5 muscle strength in the arms and legs. Normal speech. PSYCHIATRIC: Appropriate mood and affect; insight and judgment normal. 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 Continue Cardizem, continue telemetry Appreciate cardiology consult Lower GI bleed, anemia s/p EGD with distal esophageal mass and gastric ulcer s/p colonoscopy; s/p polypectomy sigmoid colon with abnormal cecum Pathology report pending s/p PRBC transfusion, continue to follow periodic CBC Appreciate gastroenterology consult hypophosphatemia, hyponatremia Continue fluid restriction Continue to replace as needed Follow with lab work DVT prophylaxis Ambulation and SCDs, chemoprophylaxis held due to GI bleed Discharge Planning Discharge held due to pathology reports pending for suspect masses
[2017-11-09] MEDS: Sod Chloride 0.9% Inj 1,000 ML IV.CONT SCH ×3 (05:39→19:31)
[2017-11-09] MEDS: Pantoprazole Inj 80 MG in Sodium Chlor 0.9% Inj 100 ML IV.CONT SCH ×3 (06:36→22:36)
[2017-11-09] MEDS: dilTIAZem 30 MG Tablet PO SCH ×2 (08:06→12:22)
--- NOTE | 2017-11-09 11:50 | P.PNIM ---
Subjective Interval history: 81-year-old female who is sitting in bed, pleasant, conversive, eating breakfast. No complaints. Physical Exam Vital signs: Vital Signs 11/08/17 12:00 11/08/17 16:00 11/08/17 20:00 Temperature 97.6 F 98 F 98.7 F Pulse Rate 81 75 74 Respiratory Rate 18 18 19 Blood Pressure 182/82 H 160/67 H 182/78 H Pulse Oximetry 94 L 94 L 94 L 11/09/17 00:00 11/09/17 04:00 11/09/17 08:00 Temperature 98.7 F 98.3 F 97.4 F L Pulse Rate 72 72 88 Respiratory Rate 18 18 19 Blood Pressure 162/74 H 157/76 H 160/76 H Pulse Oximetry 94 L 91 L 93 L Intake & Output 11/08/17 11/09/17 11/09/17 18:59 06:59 18:59 Intake Total 1100 / 1100 1440 / 1440 Output Total 1000 / 1000 1000 / 1000 Balance 100 / 100 440 / 440 Weight 57.1 kg Intake: IV 1100 / 1100 1200 / 1200 Protonix Inj 80 MG In NS Inj 100 / 100 200 / 200 100 ML @ 10 mls/hr IV.CONT Q10H RICH Rx#:[id number] NS Inj 1,000 ML @ 84 mls/hr IV. 1000 / 1000 1000 / 1000 CONT .[id number] RICH Rx#:[id number] Oral 240 / 240 Output: Urine 1000 / 1000 1000 / 1000 Other: Date of Last Bowel Movement 11/06/17 Narrative: GENERAL: NAD, AAOx3 SKIN: Warm and dry. HEAD: Atraumatic. Normocephalic. EYES: Pupils equal and round. No scleral icterus. No injection or drainage. ENT: No nasal bleeding or discharge. Mucous membranes pink and moist. NECK: Trachea midline. No JVD. CARDIOVASCULAR: Normal sinus rhythm. 1/6 crescendo-decrescendo murmur to the RSB RESPIRATORY: No accessory muscle use. Clear to auscultation. Breath sounds equal bilaterally. GASTROINTESTINAL: Abdomen soft, non-tender, nondistended. Hepatic and splenic margins not palpable. MUSCULOSKELETAL: Extremities without clubbing, cyanosis, or edema. No obvious deformities. NEUROLOGICAL: Awake and alert. No obvious cranial nerve deficits. Motor grossly within normal limits. Five out of 5 muscle strength in the arms and legs. Normal speech. PSYCHIATRIC: Appropriate mood and affect; insight and judgment normal. Results - Labs CBC & Chem 7: 11/07/17 11:18 11/05/17 02:32 Microbiology 11/03/17 12:24 Blood - Peripheral Aerobic Blood Culture - Final No growth in 5 days 11/03/17 12:24 Blood - Peripheral Anaerobic Blood Culture - Final No growth in 5 days 11/03/17 12:29 Blood - Peripheral Aerobic Blood Culture - Final No growth in 5 days 11/03/17 12:29 Blood - Peripheral Anaerobic Blood Culture - Final No growth in 5 days Assessment and Plan - Plan Poorly differentiated gastric adenocarcinoma Will discuss with daughter, treatment is typically surgical, prognosis for her age may be poor We will consult oncology if daughter agrees Acute encephalopathy-resolved History of previous stroke/TIA CT head: Old meningioma parafalcine region on the left with subacute stroke Aspirin held due to GI bleed Respiratory insufficiency-resolved Continue DuoNeb every 6 hours PRN Chest x-ray did show evidence of pulmonary vascular congestion but clinically patient is not shortness of breath CTA negative for PE Atrial fibrillation with RVR-resolved echo with EF 55% Anticoagulation held due to GI bleed. She remains in normal sinus rhythm Continue Cardizem, continue telemetry Appreciate cardiology consult Lower GI bleed, anemia s/p EGD with distal esophageal mass and gastric ulcer s/p colonoscopy; s/p polypectomy sigmoid colon with abnormal cecum Pathology shows tubular adenoma, precancerous finding but typically benign s/p PRBC transfusion, continue to follow periodic CBC Appreciate gastroenterology consult hypophosphatemia, hyponatremia Continue fluid restriction Continue to replace as needed Follow with lab work DVT prophylaxis Ambulation and SCDs, chemoprophylaxis held due to GI bleed Discharge Planning If daughter wishes to have specialist review pathologic findings, will consult specialist. Otherwise may be converted to outpatient workup.
--- NOTE | 2017-11-09 13:53 | P.PNCA ---
Subjective Interval history: Short burst of AFib this morning Asymptomatic No complaints Physical Exam Vital signs: Vital Signs 11/08/17 16:00 11/08/17 20:00 11/09/17 00:00 Temperature 98 F 98.7 F 98.7 F Pulse Rate 75 74 72 Respiratory Rate 18 18 Blood Pressure 160/67 H 182/78 H 162/74 H Pulse Oximetry 94 L 94 L 94 L 11/09/17 04:00 11/09/17 08:00 11/09/17 12:00 Temperature 98.3 F 97.4 F L 97.4 F L Pulse Rate 72 88 75 Respiratory Rate 18 Blood Pressure 157/76 H 160/76 H 147/70 H Pulse Oximetry 91 L 93 L 93 L Intake & Output 11/08/17 11/09/17 11/09/17 18:59 06:59 18:59 Intake Total 1100 / 1100 1440 / 1440 100 / 100 Output Total 1000 / 1000 1000 / 1000 Balance 100 / 100 440 / 440 100 / 100 Weight 57.1 kg Intake: IV 1100 / 1100 1200 / 1200 100 / 100 Protonix Inj 80 MG In NS Inj 100 / 100 200 / 200 100 / 100 100 ML @ 10 mls/hr IV.CONT Q10H RICH Rx#:[id number] NS Inj 1,000 ML @ 84 mls/hr IV. 1000 / 1000 1000 / 1000 CONT .[id number] RICH Rx#:[id number] Oral 240 / 240 Output: Urine 1000 / 1000 1000 / 1000 Other: Date of Last Bowel Movement 11/06/17 Narrative: GENERAL: NAD, AAOx3 SKIN: Warm and dry. HEAD: Atraumatic. Normocephalic. EYES: Pupils equal and round. No scleral icterus. No injection or drainage. ENT: No nasal bleeding or discharge. Mucous membranes pink and moist. NECK: Trachea midline. No JVD. CARDIOVASCULAR: Normal sinus rhythm. 1/6 crescendo-decrescendo murmur to the RSB RESPIRATORY: No accessory muscle use. Clear to auscultation. Breath sounds equal bilaterally. GASTROINTESTINAL: Abdomen soft, non-tender, nondistended. Hepatic and splenic margins not palpable. MUSCULOSKELETAL: Extremities without clubbing, cyanosis, or edema. No obvious deformities. NEUROLOGICAL: Awake and alert. No obvious cranial nerve deficits. Motor grossly within normal limits. Five out of 5 muscle strength in the arms and legs. Normal speech. PSYCHIATRIC: Appropriate mood and affect; insight and judgment normal. Assessment and Plan - Assessment (1) Lower GI bleed Code(s): K92.2 - Gastrointestinal hemorrhage, unspecified Status: Acute (2) Atrial fibrillation with rapid ventricular response Code(s): I48.91 - Unspecified atrial fibrillation Status: Acute (3) GI bleeding Code(s): K92.2 - Gastrointestinal hemorrhage, unspecified Status: Acute (4) Anemia Code(s): D64.9 - Anemia, unspecified Status: Acute (5) Depression Code(s): F32.9 - Major depressive disorder, single episode, unspecified Status : Acute (6) Elevated troponin Code(s): R74.8 - Abnormal levels of other serum enzymes Status: Acute - Plan 1) GI bleed Found to have a mass with ulcer in distal stomach Adenocarcinoma 2) Afib with RVR on admission Currently sinus rhythm Cardizem PO, will increase due to RVR episodes and HTN Can be changed to Cardizem CD 120mg on discharge Most likely due to overall illness Not an anticoagulation candidate due to GI mass/bleed If possible would place on ASA 81mg, but might not be possible with current mass/ulcer 3) Elevated troponins Most likely Type 2 in nature Con't medical management per her wishes
[2017-11-09] MEDS: dilTIAZem 60 MG Tablet PO SCH ×2 (18:29→20:12)
[2017-11-09] MEDS: Lisinopril 5 MG Tablet PO SCH (18:29)
[2017-11-10] MEDS: Pantoprazole Inj 80 MG in Sodium Chlor 0.9% Inj 100 ML IV.CONT SCH ×5 (05:23→22:00)
[2017-11-10] MEDS: Sod Chloride 0.9% Inj 1,000 ML IV.CONT SCH ×4 (05:24→20:30)
[2017-11-10 06:36] LABS: Hematocrit 35.2 % (35.0-46.0); Mean Corpuscular Hemoglobin 31.3 pg (27.0-34.0); Mean Corpuscular Volume 92.1 fL (80.0-100.0); Mean Platelet Volume 8.7 fL (7.0-11.0); Platelet Count 192 th/mm3 (150-450); Red Blood Count 3.82 mil/mm3 (4.00-5.30); Red Cell Distribution Width 15.2 % (11.6-17.2); White Blood Count 7.8 th/mm3 (4.0-11.0)
[2017-11-10 06:41] LABS: Anion Gap 9 meq/L (5-15); Blood Urea Nitrogen 10 mg/dL (7-18); Calcium 7.9 mg/dL (8.5-10.1); Carbon Dioxide 25.4 meq/L (21.0-32.0); Chloride 112 meq/L (98-107); Glomerular Filtration Rate Greater Than 89 mL/min (>89); Glucose,Random 92 mg/dL (74-106); Sodium 146 meq/L (136-145)
[2017-11-10] MEDS: dilTIAZem 60 MG Tablet PO SCH ×4 (08:22→20:25)
[2017-11-10] MEDS: Lisinopril 5 MG Tablet PO SCH (08:22)
--- NOTE | 2017-11-10 12:48 | P.PNCA ---
Subjective Interval history: No events overnight Mildly SOB Physical Exam Vital signs: Vital Signs 11/09/17 16:00 11/09/17 20:00 11/10/17 00:00 Temperature 97.5 F L 97.4 F L 98.2 F Pulse Rate 100 H 105 H 92 H Respiratory Rate 19 18 17 Blood Pressure 131/61 132/70 133/75 Pulse Oximetry 94 L 93 L 94 L 11/10/17 00:10 11/10/17 04:00 11/10/17 08:00 Temperature 98.4 F 97.7 F Pulse Rate 86 67 74 Respiratory Rate 18 18 Blood Pressure 164/75 H 174/78 H Pulse Oximetry 93 L 92 L 11/10/17 12:00 Temperature Pulse Rate 83 Respiratory Rate Blood Pressure Pulse Oximetry Intake & Output 11/09/17 11/10/17 11/10/17 18:59 06:59 18:59 Intake Total 660 / 660 1340 / 1340 1100 / 1100 Output Total 950 / 950 Balance 660 / 660 390 / 390 1100 / 1100 Weight 58.6 kg Intake: IV 100 / 100 1100 / 1100 1100 / 1100 Protonix Inj 80 MG In NS Inj 100 / 100 100 / 100 100 / 100 100 ML @ 10 mls/hr IV.CONT Q10H RICH Rx#:[id number] NS Inj 1,000 ML @ 84 mls/hr IV. 1000 / 1000 1000 / 1000 CONT .[id number] RICH Rx#:[id number] Oral 560 / 560 240 / 240 Output: Urine 950 / 950 Other: # Voids 3 Date of Last Bowel Movement 11/06/17 Narrative: GENERAL: NAD, AAOx3 SKIN: Warm and dry. HEAD: Atraumatic. Normocephalic. EYES: Pupils equal and round. No scleral icterus. No injection or drainage. ENT: No nasal bleeding or discharge. Mucous membranes pink and moist. NECK: Trachea midline. No JVD. CARDIOVASCULAR: Normal sinus rhythm. 1/6 crescendo-decrescendo murmur to the RSB RESPIRATORY: No accessory muscle use. Clear to auscultation. Breath sounds equal bilaterally. GASTROINTESTINAL: Abdomen soft, non-tender, nondistended. Hepatic and splenic margins not palpable. MUSCULOSKELETAL: Extremities without clubbing, cyanosis, or edema. No obvious deformities. NEUROLOGICAL: Awake and alert. No obvious cranial nerve deficits. Motor grossly within normal limits. Five out of 5 muscle strength in the arms and legs. Normal speech. PSYCHIATRIC: Appropriate mood and affect; insight and judgment normal. Assessment and Plan - Assessment (1) Lower GI bleed Code(s): K92.2 - Gastrointestinal hemorrhage, unspecified Status: Acute (2) Atrial fibrillation with rapid ventricular response Code(s): I48.91 - Unspecified atrial fibrillation Status: Acute (3) GI bleeding Code(s): K92.2 - Gastrointestinal hemorrhage, unspecified Status: Acute (4) Anemia Code(s): D64.9 - Anemia, unspecified Status: Acute (5) Depression Code(s): F32.9 - Major depressive disorder, single episode, unspecified Status : Acute (6) Elevated troponin Code(s): R74.8 - Abnormal levels of other serum enzymes Status: Acute - Plan 1) GI bleed Found to have a mass with ulcer in distal stomach Adenocarcinoma 2) Afib with RVR on admission Currently sinus rhythm Cardizem PO, will increase due to RVR episodes and HTN Can be changed to Cardizem CD 240mg on discharge Most likely due to overall illness Not an anticoagulation candidate due to GI mass/bleed If possible would place on ASA 81mg, but might not be possible with current mass/ulcer 3) Elevated troponins Most likely Type 2 in nature Con't medical management per her wishes 4) SOB Weights up due to fluids and PRBC Lasix x1 today
[2017-11-10] MEDS ORDERED: Bisacodyl 10 MG Supp RECTAL PRN (13:31)
--- NOTE | 2017-11-10 13:38 | P.PNGI ---
Subjective Interval history: Patient denies any abdominal pain no acute nausea or vomiting Chief complaint constipation states lactulose ineffective Eating solid food, current hemoglobin 12 <Amanda Chan - Last Filed: 11/10/17 13:33> Physical Exam Vital signs: Vital Signs 11/09/17 16:00 11/09/17 20:00 11/10/17 00:00 Temperature 97.5 F L 97.4 F L 98.2 F Pulse Rate 100 H 105 H 92 H Respiratory Rate 19 18 17 Blood Pressure 131/61 132/70 133/75 Pulse Oximetry 94 L 93 L 94 L 11/10/17 00:10 11/10/17 04:00 11/10/17 08:00 Temperature 98.4 F 97.7 F Pulse Rate 86 67 74 Respiratory Rate 18 18 Blood Pressure 164/75 H 174/78 H Pulse Oximetry 93 L 92 L 11/10/17 12:00 Temperature Pulse Rate 83 Respiratory Rate Blood Pressure Pulse Oximetry Intake & Output 11/09/17 11/10/17 11/10/17 18:59 06:59 18:59 Intake Total 660 / 660 1340 / 1340 1100 / 1100 Output Total 950 / 950 Balance 660 / 660 390 / 390 1100 / 1100 Weight 58.6 kg Intake: IV 100 / 100 1100 / 1100 1100 / 1100 Protonix Inj 80 MG In NS Inj 100 / 100 100 / 100 100 / 100 100 ML @ 10 mls/hr IV.CONT Q10H RICH Rx#:[id number] NS Inj 1,000 ML @ 84 mls/hr IV. 1000 / 1000 1000 / 1000 CONT .[id number] RICH Rx#:[id number] Oral 560 / 560 240 / 240 Output: Urine 950 / 950 Other: # Voids 3 Date of Last Bowel Movement 11/06/17 - Constitutional no acute distress, chronically ill appearing - Routine HEENT Exam ENT: Present: mucous membranes moist - Routine Respiratory Exam Present: accessory muscle use - Routine Abdominal Exam Present: soft (Round, no abdominal pain soft bowel sounds) <Amanda Chan - Last Filed: 11/10/17 13:33> Vital signs: Vital Signs 11/10/17 00:00 11/10/17 00:10 11/10/17 04:00 Temperature 98.2 F 98.4 F Pulse Rate 92 H 86 67 Respiratory Rate 17 18 Blood Pressure 133/75 164/75 H Pulse Oximetry 94 L 93 L 11/10/17 08:00 11/10/17 12:00 11/10/17 16:00 Temperature 97.7 F 97.9 F 98.0 F Pulse Rate 74 68 72 Respiratory Rate 18 18 17 Blood Pressure 174/78 H 155/66 H 159/70 H Pulse Oximetry 92 L 93 L 93 L 11/10/17 20:00 Temperature 98.7 F Pulse Rate 74 Respiratory Rate 18 Blood Pressure 158/73 H Pulse Oximetry 90 L Intake & Output 11/10/17 11/10/17 11/11/17 06:59 18:59 06:59 Intake Total 1340 / 1340 1800 / 1800 1000 / 1000 Output Total 950 / 950 Balance 390 / 390 1800 / 1800 1000 / 1000 Weight 58.6 kg Intake: IV 1100 / 1100 1200 / 1200 1000 / 1000 Protonix Inj 80 MG In NS Inj 100 / 100 200 / 200 100 ML @ 10 mls/hr IV.CONT Q10H RICH Rx#:[id number] NS Inj 1,000 ML @ 84 mls/hr IV. 1000 / 1000 1000 / 1000 1000 / 1000 CONT .[id number] RICH Rx#:[id number] Oral 240 / 240 600 / 600 Output: Urine 950 / 950 Other: # Voids 3 Date of Last Bowel Movement 11/06/17 # Bowel Movements 0 <Louis Villa - Last Filed: 11/10/17 23:08> Results - Labs CBC & Chem 7: 11/10/17 04:22 11/10/17 04:22 Laboratory Results - last 24 hr 11/10/17 11/10/17 04:22 04:22 WBC 7.8 RBC 3.82 L Hgb 12.0 Hct 35.2 MCV 92.1 MCH 31.3 MCHC 34.0 RDW 15.2 Plt Count 192 D MPV 8.7 Sodium 146 H Potassium 3.0 L Chloride 112 H Carbon Dioxide 25.4 Anion Gap 9 BUN 10 Creatinine 0.50 Estimated GFR Greater than 89 Random Glucose 92 Calcium 7.9 L <Amanda Chan - Last Filed: 11/10/17 13:33> - Labs CBC & Chem 7: 11/10/17 04:22 11/10/17 04:22 Laboratory Results - last 24 hr 11/10/17 11/10/17 04:22 04:22 WBC 7.8 RBC 3.82 L Hgb 12.0 Hct 35.2 MCV 92.1 MCH 31.3 MCHC 34.0 RDW 15.2 Plt Count 192 D MPV 8.7 Sodium 146 H Potassium 3.0 L Chloride 112 H Carbon Dioxide 25.4 Anion Gap 9 BUN 10 Creatinine 0.50 Estimated GFR Greater than 89 Random Glucose 92 Calcium 7.9 L <Louis Villa - Last Filed: 11/10/17 23:08> Assessment and Plan - Plan Acute GI bleed-woke up at 0600 this morning feeling notably weak with bright red and dark rectal bleeding . Rectal bleeding associated with lower abdominal cramping and generalized abdominal tenderness. pt denies hx of GI bleeding in the past. Denies taking any blood thinners or Aspirin. Denies ever having had upper or lower endoscopy. Hgb 10.1, Hct 30 which is baseline for patient. Patient denies nausea,vomiting or diarrhea. She endorses having constipation with hard stools intermittently over the last 3-4 months. Pt denies unintended weight loss. Patient denies difficulty swallowing or heartburn. Workup revealed elevated Troponin 0.11, BNP 256. On arrival to ER, pt was noted to be in Afib with RVR which resolved spontaneously. CT abdomen and pelvis--> negative for Ischemic Colitis or Diverticulitis. - Elevated Troponin and BNP- Abnormal findings on EKG on arrival to ER. Pt noted to be in Afib with RVR. Afib resolved spontaneously. 11/03/17. Chest CT negative for pulmonary embolism. Doppler study negative for DVT - Hx of TIA per pts daughter [address] head 11/03/17 1. 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 Stroke could be similar between 3 and 7 days in age. 2. I have no prior studies for comparison. (11/06) Pt resting in bed S/P EGD and colonoscopy yesterday. Denies any nausea or vomiting. Poor appetite, her daughter brought her food from [employer] but she does not feel like eating. Complaining of pain in her abdomen. Pt has not had BM since GI procedures yesterday. Some drop in H/H- 2 U PRBCs ordered and transfusing. Pt in a-fib with RVR, cardiology following EGD (11/05) Near circumferential mass, measuring 3 X 3cm in size, was found in the distal esophagus; multiple biopsies were performed. Large ulcer was found in the gastric fundus. Normal duodenal mucosa in the bulb and second portion of the duodenum. Retroflexed views revealed an ulcer Colonoscopy (11/05) Severe diverticulosis was noted throughout the entire examined colon. 2 x 2cm abnormal mucosa was found at the cecum; The mucosa was congested, edematous and erythematous; multiple biopsies were performed using cold forceps. Two semi-pedunculated polyps were found in the sigmoid colon; polypectomy was performed using snare cautery. Internal and external hemorrhoids Pt denies history of smoking. Denies personal or family history of cancer. 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 GI procedures as above. Palliative care following, note states that pt wants to await biopsy results before making any further treatments regarding goals of treatment. 11/10/2017 patient chief complaint appears to be constipation, states lactulose ineffective. Bowel sounds are soft without any abdominal pain patient is able to eat regular food. Current hemoglobin stable at 12, no obvious nausea or vomiting. Noted above patient is status post EGD colonoscopy. No obvious bleeding and hemoglobin appears stable currently continues with Protonix drip but will transition to p.o. in a.m. if patient is stable Plan: Diet, regular food as tolerated Biopsies pending, once patient is stabilized will need follow-up in the office to discuss findings and plan of care MiraLAX daily, if ineffective may use Dulcolax suppository as needed Monitor labs with special attention hemoglobin no obvious bleeding noted PPI, IV for today, Supportive care Patient was seen per myself and Dr. Villa, note was written on his behalf <Amanda Chan - Last Filed: 11/10/17 13:33> - Attending Attestation Same overall condition, diet tolerated well. Biopsies pending. Will follow up with you after biopsies results. <Louis Villa - Last Filed: 11/10/17 23:08>
[2017-11-10] MEDS: Polyethylene Glycol 3350 17 GM Packet PO SCH (14:31)
--- NOTE | 2017-11-10 17:24 | P.PNIM ---
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 We decided to discuss this with her today and with her daughter present proceeded to do so. Patient was disappointed but open to exploring treatment options once prognosis is more clear. Physical Exam Vital signs: Vital Signs 11/09/17 20:00 11/10/17 00:00 11/10/17 00:10 Temperature 97.4 F L 98.2 F Pulse Rate 105 H 92 H 86 Respiratory Rate 18 17 Blood Pressure 132/70 133/75 Pulse Oximetry 93 L 94 L 11/10/17 04:00 11/10/17 08:00 11/10/17 12:00 Temperature 98.4 F 97.7 F Pulse Rate 67 74 83 Respiratory Rate 18 18 Blood Pressure 164/75 H 174/78 H Pulse Oximetry 93 L 92 L 11/10/17 16:00 Temperature Pulse Rate 82 Respiratory Rate Blood Pressure Pulse Oximetry Intake & Output 11/09/17 11/10/17 11/10/17 18:59 06:59 18:59 Intake Total 660 / 660 1340 / 1340 1100 / 1100 Output Total 950 / 950 Balance 660 / 660 390 / 390 1100 / 1100 Weight 58.6 kg Intake: IV 100 / 100 1100 / 1100 1100 / 1100 Protonix Inj 80 MG In NS Inj 100 / 100 100 / 100 100 / 100 100 ML @ 10 mls/hr IV.CONT Q10H RICH Rx#:[id number] NS Inj 1,000 ML @ 84 mls/hr IV. 1000 / 1000 1000 / 1000 CONT .[id number] RICH Rx#:[id number] Oral 560 / 560 240 / 240 Output: Urine 950 / 950 Other: # Voids 3 Date of Last Bowel Movement 11/06/17 Narrative: GENERAL: NAD, AAOx3 SKIN: Warm and dry. HEAD: Atraumatic. Normocephalic. EYES: Pupils equal and round. No scleral icterus. No injection or drainage. ENT: No nasal bleeding or discharge. Mucous membranes pink and moist. NECK: Trachea midline. No JVD. CARDIOVASCULAR: Normal sinus rhythm. 1/6 crescendo-decrescendo murmur to the RSB RESPIRATORY: No accessory muscle use. Clear to auscultation. Breath sounds equal bilaterally. GASTROINTESTINAL: Abdomen soft, non-tender, nondistended. Hepatic and splenic margins not palpable. MUSCULOSKELETAL: Extremities without clubbing, cyanosis, or edema. No obvious deformities. NEUROLOGICAL: Awake and alert. No obvious cranial nerve deficits. Motor grossly within normal limits. Five out of 5 muscle strength in the arms and legs. Normal speech. PSYCHIATRIC: Appropriate mood and affect; insight and judgment normal. Results - Labs CBC & Chem 7: 11/10/17 04:22 11/10/17 04:22 Laboratory Results - last 24 hr 11/10/17 11/10/17 04:22 04:22 WBC 7.8 RBC 3.82 L Hgb 12.0 Hct 35.2 MCV 92.1 MCH 31.3 MCHC 34.0 RDW 15.2 Plt Count 192 D MPV 8.7 Sodium 146 H Potassium 3.0 L Chloride 112 H Carbon Dioxide 25.4 Anion Gap 9 BUN 10 Creatinine 0.50 Estimated GFR Greater than 89 Random Glucose 92 Calcium 7.9 L Assessment and Plan - Plan Poorly differentiated gastric adenocarcinoma Family discussion yesterday, discussion with patient today Consult oncology Acute encephalopathy-resolved History of previous stroke/TIA CT head: Old meningioma parafalcine region on the left with subacute stroke Aspirin held due to GI bleed Respiratory insufficiency-resolved Continue DuoNeb every 6 hours PRN Chest x-ray did show evidence of pulmonary vascular congestion but clinically patient is not shortness of breath CTA negative for PE Atrial fibrillation with RVR-resolved echo with EF 55% Anticoagulation held due to GI bleed. She remains in normal sinus rhythm Continue Cardizem, continue telemetry Appreciate cardiology consult Lower GI bleed, anemia s/p EGD with distal esophageal mass and gastric ulcer s/p colonoscopy; s/p polypectomy sigmoid colon with abnormal cecum Pathology shows tubular adenoma, precancerous finding but typically benign s/p PRBC transfusion, continue to follow periodic CBC Appreciate gastroenterology consult hypophosphatemia, hyponatremia Continue fluid restriction Continue to replace as needed Follow with lab work DVT prophylaxis Ambulation and SCDs, chemoprophylaxis held due to GI bleed Discharge Planning If oncology determines outpatient workup is preferred and patient may be discharged home soon. If surgery is required she will stay.
[2017-11-11] MEDS: Lisinopril 5 MG Tablet PO SCH (08:27)
[2017-11-11] MEDS: Polyethylene Glycol 3350 17 GM Packet PO SCH (08:27)
[2017-11-11] MEDS: dilTIAZem 60 MG Tablet PO SCH ×4 (08:27→20:23)
[2017-11-11] MEDS: Sod Chloride 0.9% Inj 1,000 ML IV.CONT SCH ×3 (08:28→20:28)
[2017-11-11] MEDS: Pantoprazole Inj 80 MG in Sodium Chlor 0.9% Inj 100 ML IV.CONT SCH (08:32)
--- NOTE | 2017-11-11 11:26 | P.PNPAL ---
Reason for Visit Reason for visit: a. To assist with evaluation and management of symptoms including: Pain, weakness/fatigue, depression b. To assist medical decision maker(s) with: better understanding of current medical conditions; weighing benefits/burdens of medical treatment options; making medical treatment decisions. Subjective Subjective/Interval History: INTERVAL NOTE: Pt resting in bed, no acute distress. She denies physical pain, admits emotional pain 2/2 recent diagnosis poorly differentiated adenocarcinoma. Waiting on oncology consult. Denies SOB at this time but says in general she feels her periods of SOB are at her normal baseline. Cardiology increased cardizem. she is not tachycardic or dyspneic on my eval. No BM in one week per pt, none documented. She is on PRN lactulose, PRN bisacodyl, daily miralax and says nothing has helped. She is unsure if she has discomfort but is tender to palpation of lower abd and mildly distended. Advance Directives Health Care Surrogate Name and Number: Daughter Shala Rosa Objective Vital Signs: Vital Signs 11/10/17 12:00 11/10/17 16:00 11/10/17 20:00 Temperature 97.9 F 98.0 F 98.7 F Pulse Rate 68 72 74 Respiratory Rate 18 17 18 Blood Pressure 155/66 H 159/70 H 158/73 H Pulse Oximetry 93 L 93 L 90 L 11/10/17 20:09 11/10/17 23:59 11/11/17 00:38 Temperature Pulse Rate 73 75 75 Respiratory Rate Blood Pressure 157/77 H Pulse Oximetry 11/11/17 04:00 11/11/17 04:23 11/11/17 08:00 Temperature 98.0 F 97.9 F Pulse Rate 72 73 75 Respiratory Rate 17 20 Blood Pressure 168/76 H 183/80 H Pulse Oximetry 90 L 92 L Intake & Output 11/10/17 11/11/17 11/11/17 18:59 06:59 18:59 Intake Total 1800 / 1800 1100 / 1100 1000 / 1000 Output Total 400 / 400 Balance 1800 / 1800 700 / 700 1000 / 1000 Weight 57 kg Intake: IV 1200 / 1200 1100 / 1100 1000 / 1000 Protonix Inj 80 MG In NS Inj 200 / 200 100 / 100 100 ML @ 10 mls/hr IV.CONT Q10H JUDI Rx#:[id number] NS Inj 1,000 ML @ 84 mls/hr IV. 1000 / 1000 1000 / 1000 1000 / 1000 CONT .[id number] JUDI Rx#:[id number] Oral 600 / 600 0 / 0 Output: Urine 400 / 400 Other: # Voids 3 # Bowel Movements 0 Physical Exam: CONSTITUTIONAL/GENERAL: This is an elderly, in no apparent distress. CARDIOVASCULAR: RRR without murmurs, gallops, or rubs. RESPIRATORY/CHEST: Symmetric, unlabored respirations. CTA GASTROINTESTINAL: Abdomen soft, non-tender, mildly distended. No hepato- splenomegaly, or palpable masses. No guarding. Bowel sounds present. MUSCULOSKELETAL: Extremities without clubbing, cyanosis, or edema. No mottling or clubbing. NEUROLOGICAL: Awake and alert. Motor and sensory grossly within normal limits. Follows commands. Cognitively sharp. Moves all extremities. mild slurring but answers appropriately PSYCHIATRIC: + anxiety Diagnostic Tests Laboratory: Laboratory Results - last 72 hr 11/10/17 11/10/17 04:22 04:22 WBC 7.8 RBC 3.82 L Hgb 12.0 Hct 35.2 MCV 92.1 MCH 31.3 MCHC 34.0 RDW 15.2 Plt Count 192 D MPV 8.7 Sodium 146 H Potassium 3.0 L Chloride 112 H Carbon Dioxide 25.4 Anion Gap 9 BUN 10 Creatinine 0.50 Estimated GFR Greater than 89 Random Glucose 92 Calcium 7.9 L Result Diagrams: 11/10/17 04:22 11/10/17 04:22 Microbiology: Microbiology 11/03/17 12:24 Aerobic Blood Culture - Final Blood - Peripheral No growth in 5 days Anaerobic Blood Culture - Final No growth in 5 days 11/03/17 12:29 Aerobic Blood Culture - Final Blood - Peripheral No growth in 5 days Anaerobic Blood Culture - Final No growth in 5 days Procedures: EGD with biopsy 11/05/17 Colonoscopy with biopsy 11/05/17 Assessment and Plan - Disease Oriented Problem List (1) GI bleeding Comment: EGD and colonoscopy, both with biopsies, 11/04/17 (2) Anemia Comment: Dropped 2 g of hemoglobin in the first 24 hours (3) Altered mental state (4) Atrial fibrillation with rapid ventricular response Comment: Resolved (5) Meningioma Comment: Since at least 2010 on scans - Symptom Scale (2) Pain Comment: Resolved Pertinent Non-Medical Issues: Psychosocial: Originally from [place], has lived in this area for about 30 years. Has lived alone the last 20 years since she was . 6 children, 4 living in the [place] area, and a son and daughter living locally and close to the patient. Spiritual: The patient reports that her belief in God is important for her; "He will take me when He is ready." Legal: The patient has capacity for decision-making at this time. On 11/04/17, she is designating her daughter Shala as HCS. Ethical issues impacting care: none Important Contacts: Daughter/HCS: Shala Rosa Daughter: Awilda Parr [phone] Son: Farhan Boyce [phone] Prognosis: Her overall prognosis because of her advanced age and general debility is rather guarded. The ultimate prognosis will depend on the stability of her heart and the etiology and treatment options for her GI bleeding, and the extent of esophageal poorly differentiated adenocarcinoma. Code Status: Full Code Plan: * Full CODE, but she wants to readdress this question after more definitive diagnoses and prognoses are apparent with respect to her GI (biopsies) and cardiac issues. * GOALS: The patient wants to remain FULL CODE for now, and wants to await biopsy reports before making any further decisions. She does understand that it is likely that she has a GI malignancy; biopsies are pending. The most important thing for her is to be able to return home and function independently again and to not be in pain. * DECISION-MAKING: The patient has capacity for decision-making at this time. She has designated her daughter Shala as HCS. * SYMPTOMS: PAIN = denies physical pain, mild lower abd TTP 2/2 constipation. DYSPNEA = 2/2 AF with RVR. no dyspnea on my eval. cardiology increased cardizem. DEPRESSION = 2/2 recent dx esophageal malignancy. admits emotional pain. oncology consult pending. CONSTIPATION = no BM 1 wk per pt. none documented recently. mild abd distention and TTP on exam. BS + no yield from PRN bisacodyl, PRN lactulose, judi miralax. will try 1 x mg citrate. * await oncology consult * Palliative Care will continue to follow the patient during this hospitalization. Attestation Attestation: To help prompt me to consider important information that might be impacting today's encounter and assessment, information from prior notes written by myself or my colleagues may have been "brought forward" into today's note. My signature on this note, however, is an attestation that I personally performed the exam, history, and/or decision-making noted today, and, unless otherwise indicated, the interactions with patient, family, and staff as well as the review of records all occurred today. I also attest that the listed assessment and stated plan reflect my best clinical judgment today based on the combination of historical information, prior notes, and today's exam/ interactions. When time spent is documented, it refers only to time spent today by the signer, or if indicated, combined time spent today by collaborating physician/nurse practitioner.
[2017-11-11] MEDS ORDERED: Magnesium Citrate Liq 300 ML Bottle PO ONE (12:00)
--- NOTE | 2017-11-11 13:24 | P.PNGI ---
Subjective Interval history: Patient is resting in the bed appears to be feeling gradually better Hemoglobin on 11/10/2017 was 12 no obvious bleeding. Still has some decreased appetite but no nausea or vomiting or abdominal pain <Amanda Chan - Last Filed: 11/11/17 13:27> Physical Exam Vital signs: Vital Signs 11/10/17 16:00 11/10/17 20:00 11/10/17 20:09 Temperature 98.0 F 98.7 F Pulse Rate 72 74 73 Respiratory Rate 17 18 Blood Pressure 159/70 H 158/73 H Pulse Oximetry 93 L 90 L 11/10/17 23:59 11/11/17 00:38 11/11/17 04:00 Temperature 98.0 F Pulse Rate 75 75 72 Respiratory Rate 17 Blood Pressure 157/77 H 168/76 H Pulse Oximetry 90 L 11/11/17 04:23 11/11/17 08:00 Temperature 97.9 F Pulse Rate 73 75 Respiratory Rate 20 Blood Pressure 183/80 H Pulse Oximetry 92 L Intake & Output 11/10/17 11/11/17 11/11/17 18:59 06:59 18:59 Intake Total 1800 / 1800 1100 / 1100 1000 / 1000 Output Total 400 / 400 Balance 1800 / 1800 700 / 700 1000 / 1000 Weight 57 kg Intake: IV 1200 / 1200 1100 / 1100 1000 / 1000 Protonix Inj 80 MG In NS Inj 200 / 200 100 / 100 100 ML @ 10 mls/hr IV.CONT Q10H RICH Rx#:[id number] NS Inj 1,000 ML @ 84 mls/hr IV. 1000 / 1000 1000 / 1000 1000 / 1000 CONT .[id number] RICH Rx#:[id number] Oral 600 / 600 0 / 0 Output: Urine 400 / 400 Other: # Voids 3 # Bowel Movements 0 - Constitutional mild distress, cachectic - Routine HEENT Exam ENT: Present: mucous membranes moist - Routine Respiratory Exam Present: accessory muscle use (Even, unlabored) - Routine Cardiovascular Exam Present: S1, S2 - Routine Abdominal Exam Present: soft (Round, no obvious bloating or tenderness) - Routine Skin Exam Present: pallor - Routine Neurological Exam Present: alert (Awake appears more alert and does note she is feeling better) <Amanda Chan - Last Filed: 11/11/17 13:27> Vital signs: Vital Signs 11/10/17 20:00 09/03/18 20:09 11/10/17 23:59 Temperature 98.7 F Pulse Rate 74 73 75 Respiratory Rate 18 Blood Pressure 158/73 H Pulse Oximetry 90 L 11/11/17 00:38 11/11/17 04:00 11/11/17 04:23 Temperature 98.0 F Pulse Rate 75 72 73 Respiratory Rate 17 Blood Pressure 157/77 H 168/76 H Pulse Oximetry 90 L 11/11/17 08:00 11/11/17 12:00 Temperature 97.9 F 97.8 F Pulse Rate 75 73 Respiratory Rate 20 20 Blood Pressure 183/80 H 167/70 H Pulse Oximetry 92 L 93 L Intake & Output 11/10/17 11/11/17 11/11/17 18:59 06:59 18:59 Intake Total 1800 / 1800 1100 / 1100 1000 / 1000 Output Total 400 / 400 Balance 1800 / 1800 700 / 700 1000 / 1000 Weight 57 kg Intake: IV 1200 / 1200 1100 / 1100 1000 / 1000 Protonix Inj 80 MG In NS Inj 200 / 200 100 / 100 100 ML @ 10 mls/hr IV.CONT Q10H RICH Rx#:[id number] NS Inj 1,000 ML @ 84 mls/hr IV. 1000 / 1000 1000 / 1000 1000 / 1000 CONT .[id number] RICH Rx#:[id number] Oral 600 / 600 0 / 0 Output: Urine 400 / 400 Other: # Voids 3 # Bowel Movements 0 <Louis Villa - Last Filed: 11/11/17 16:25> Results - Labs CBC & Chem 7: 11/10/17 04:22 11/10/17 04:22 <Amanda Chan - Last Filed: 11/11/17 13:27> - Labs CBC & Chem 7: 11/10/17 04:22 11/10/17 04:22 <Louis Villa - Last Filed: 11/11/17 16:25> Assessment and Plan - Plan Acute GI bleed-woke up at 0600 this morning feeling notably weak with bright red and dark rectal bleeding . Rectal bleeding associated with lower abdominal cramping and generalized abdominal tenderness. pt denies hx of GI bleeding in the past. Denies taking any blood thinners or Aspirin. Denies ever having had upper or lower endoscopy. Hgb 10.1, Hct 30 which is baseline for patient. Patient denies nausea,vomiting or diarrhea. She endorses having constipation with hard stools intermittently over the last 3-4 months. Pt denies unintended weight loss. Patient denies difficulty swallowing or heartburn. Workup revealed elevated Troponin 0.11, BNP 256. On arrival to ER, pt was noted to be in Afib with RVR which resolved spontaneously. CT abdomen and pelvis--> negative for Ischemic Colitis or Diverticulitis. - Elevated Troponin and BNP- Abnormal findings on EKG on arrival to ER. Pt noted to be in Afib with RVR. Afib resolved spontaneously. 11/03/17. Chest CT negative for pulmonary embolism. Doppler study negative for DVT - Hx of TIA per pts daughter [address] head 11/03/17 1. 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 Stroke could be similar between 3 and 7 days in age. 2. I have no prior studies for comparison. (11/06) Pt resting in bed S/P EGD and colonoscopy yesterday. Denies any nausea or vomiting. Poor appetite, her daughter brought her food from [employer] but she does not feel like eating. Complaining of pain in her abdomen. Pt has not had BM since GI procedures yesterday. Some drop in H/H- 2 U PRBCs ordered and transfusing. Pt in a-fib with RVR, cardiology following EGD (11/05) Near circumferential mass, measuring 3 X 3cm in size, was found in the distal esophagus; multiple biopsies were performed. Large ulcer was found in the gastric fundus. Normal duodenal mucosa in the bulb and second portion of the duodenum. Retroflexed views revealed an ulcer Colonoscopy (11/05) Severe diverticulosis was noted throughout the entire examined colon. 2 x 2cm abnormal mucosa was found at the cecum; The mucosa was congested, edematous and erythematous; multiple biopsies were performed using cold forceps. Two semi-pedunculated polyps were found in the sigmoid colon; polypectomy was performed using snare cautery. Internal and external hemorrhoids Pt denies history of smoking. Denies personal or family history of cancer. 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 GI procedures as above. Palliative care following, note states that pt wants to await biopsy results before making any further treatments regarding goals of treatment. 11/10/2017 patient chief complaint appears to be constipation, states lactulose ineffective. Bowel sounds are soft without any abdominal pain patient is able to eat regular food. Current hemoglobin stable at 12, no obvious nausea or vomiting. Noted above patient is status post EGD colonoscopy. No obvious bleeding and hemoglobin appears stable currently continues with Protonix drip but will transition to p.o. in a.m. if patient is stable 11/11/2017 patient is showing some gradual improvement although she still has some decreased appetite. Discussed with her small feedings with hydration 4-6 times a day. Patient will need follow-up with her biopsies in the office once she is stable for discharge. Monitoring and discussing bowel regimen patient states still no bowel movement after MiraLAX and mag citrate. Transition patient to p.o. PPI. Plan: Diet, solid food with hydration Biopsies pending, will need outpatient follow-up MiraLAX daily, if ineffective may use Dulcolax suppository as needed Fleets enema today 1 and check for impaction Monitor labs PPI, change to p.o. Supportive care Patient was seen per myself and Dr. Villa, note was written on his behalf <Amanda Chan - Last Filed: 11/11/17 13:27> - Attending Attestation Biopsies still pending, no change in overall condition. Nothing to add at this point. Will follow up with you periodically. <Louis Villa - Last Filed: 11/11/17 16:25>
[2017-11-11] MEDS ORDERED: Sod Phosphate/Sod Biphosphate (Adult) Enema 133 ML Bottle RECTAL ONE (13:26)
--- NOTE | 2017-11-11 17:00 | P.PNIM ---
Subjective Interval history: Patient voices no complaints. She seems a bit sad today, it seems she is dealing with the bad news of her cancer. Physical Exam Vital signs: Vital Signs 11/10/17 20:00 11/10/17 20:09 11/10/17 23:59 Temperature 98.7 F Pulse Rate 74 73 75 Respiratory Rate 18 Blood Pressure 158/73 H Pulse Oximetry 90 L 11/11/17 00:38 11/11/17 04:00 11/11/17 04:23 Temperature 98.0 F Pulse Rate 75 72 73 Respiratory Rate 17 Blood Pressure 157/77 H 168/76 H Pulse Oximetry 90 L 11/11/17 08:00 11/11/17 12:00 11/11/17 16:00 Temperature 97.9 F 97.8 F Pulse Rate 75 73 71 Respiratory Rate 20 20 Blood Pressure 183/80 H 167/70 H Pulse Oximetry 92 L 93 L Intake & Output 11/10/17 11/11/17 11/11/17 18:59 06:59 18:59 Intake Total 1800 / 1800 1100 / 1100 1000 / 1000 Output Total 400 / 400 Balance 1800 / 1800 700 / 700 1000 / 1000 Weight 57 kg Intake: IV 1200 / 1200 1100 / 1100 1000 / 1000 Protonix Inj 80 MG In NS Inj 200 / 200 100 / 100 100 ML @ 10 mls/hr IV.CONT Q10H RICH Rx#:[id number] NS Inj 1,000 ML @ 84 mls/hr IV. 1000 / 1000 1000 / 1000 1000 / 1000 CONT .[id number] RICH Rx#:[id number] Oral 600 / 600 0 / 0 Output: Urine 400 / 400 Other: # Voids 3 # Bowel Movements 0 Narrative: GENERAL: NAD, AAOx3 SKIN: Warm and dry. HEAD: Atraumatic. Normocephalic. EYES: Pupils equal and round. No scleral icterus. No injection or drainage. ENT: No nasal bleeding or discharge. Mucous membranes pink and moist. NECK: Trachea midline. No JVD. CARDIOVASCULAR: Normal sinus rhythm. 1/6 crescendo-decrescendo murmur to the RSB RESPIRATORY: No accessory muscle use. Clear to auscultation. Breath sounds equal bilaterally. GASTROINTESTINAL: Abdomen soft, non-tender, nondistended. Hepatic and splenic margins not palpable. MUSCULOSKELETAL: Extremities without clubbing, cyanosis, or edema. No obvious deformities. NEUROLOGICAL: Awake and alert. No obvious cranial nerve deficits. Motor grossly within normal limits. Five out of 5 muscle strength in the arms and legs. Normal speech. PSYCHIATRIC: Appropriate mood and affect; insight and judgment normal. Results - Labs CBC & Chem 7: 11/10/17 04:22 11/10/17 04:22 Assessment and Plan - Plan Poorly differentiated gastric adenocarcinoma Oncology consult pending Acute encephalopathy-resolved History of previous stroke/TIA CT head: Old meningioma parafalcine region on the left with subacute stroke Aspirin held due to GI bleed Respiratory insufficiency-resolved Continue DuoNeb every 6 hours PRN Chest x-ray did show evidence of pulmonary vascular congestion but clinically patient is not shortness of breath CTA negative for PE Atrial fibrillation with RVR-resolved echo with EF 55% Anticoagulation held due to GI bleed. She remains in normal sinus rhythm Continue Cardizem, continue telemetry Appreciate cardiology consult Lower GI bleed, anemia s/p EGD with distal esophageal mass and gastric ulcer s/p colonoscopy; s/p polypectomy sigmoid colon with abnormal cecum Pathology shows tubular adenoma, precancerous finding but typically benign s/p PRBC transfusion, continue to follow periodic CBC Appreciate gastroenterology consult hypophosphatemia, hyponatremia Continue fluid restriction Continue to replace as needed Follow with lab work DVT prophylaxis Ambulation and SCDs, chemoprophylaxis held due to GI bleed Discharge Planning If oncology determines outpatient workup is preferred and patient may be discharged home soon. If surgery is required she will stay.
--- NOTE | 2017-11-11 18:11 | P.PNCA ---
Subjective Interval history: No events overnight Blood pressure elevated Physical Exam Vital signs: Vital Signs 11/10/17 20:00 11/10/17 20:09 11/10/17 23:59 Temperature 98.7 F Pulse Rate 74 73 75 Respiratory Rate 18 Blood Pressure 158/73 H Pulse Oximetry 90 L 11/11/17 00:38 11/11/17 04:00 11/11/17 04:23 Temperature 98.0 F Pulse Rate 75 72 73 Respiratory Rate 17 Blood Pressure 157/77 H 168/76 H Pulse Oximetry 90 L 11/11/17 08:00 11/11/17 12:00 11/11/17 16:00 Temperature 97.9 F 97.8 F 97.7 F Pulse Rate 75 73 73 Respiratory Rate 20 20 20 Blood Pressure 183/80 H 167/70 H 168/77 H Pulse Oximetry 92 L 93 L 94 L Intake & Output 11/10/17 11/11/17 11/11/17 18:59 06:59 18:59 Intake Total 1800 / 1800 1100 / 1100 1000 / 1000 Output Total 400 / 400 7 / 7 Balance 1800 / 1800 700 / 700 993 / 993 Weight 57 kg Intake: IV 1200 / 1200 1100 / 1100 1000 / 1000 Protonix Inj 80 MG In NS Inj 200 / 200 100 / 100 100 ML @ 10 mls/hr IV.CONT Q10H [facility] Rx#:[id number] NS Inj 1,000 ML @ 84 mls/hr IV. 1000 / 1000 1000 / 1000 1000 / 1000 CONT .[id number] [facility] Rx#:[id number] Oral 600 / 600 0 / 0 Output: Urine 400 / 400 7 / 7 Other: # Voids 3 # Bowel Movements 0 Narrative: GENERAL: NAD, AAOx3 SKIN: Warm and dry. HEAD: Atraumatic. Normocephalic. EYES: Pupils equal and round. No scleral icterus. No injection or drainage. ENT: No nasal bleeding or discharge. Mucous membranes pink and moist. NECK: Trachea midline. No JVD. CARDIOVASCULAR: Normal sinus rhythm. 1/6 crescendo-decrescendo murmur to the RSB RESPIRATORY: No accessory muscle use. Clear to auscultation. Breath sounds equal bilaterally. GASTROINTESTINAL: Abdomen soft, non-tender, nondistended. Hepatic and splenic margins not palpable. MUSCULOSKELETAL: Extremities without clubbing, cyanosis, or edema. No obvious deformities. NEUROLOGICAL: Awake and alert. No obvious cranial nerve deficits. Motor grossly within normal limits. Five out of 5 muscle strength in the arms and legs. Normal speech. PSYCHIATRIC: Appropriate mood and affect; insight and judgment normal. Assessment and Plan - Assessment (1) Lower GI bleed Code(s): K92.2 - Gastrointestinal hemorrhage, unspecified Status: Acute (2) Atrial fibrillation with rapid ventricular response Code(s): I48.91 - Unspecified atrial fibrillation Status: Acute (3) GI bleeding Code(s): K92.2 - Gastrointestinal hemorrhage, unspecified Status: Acute (4) Anemia Code(s): D64.9 - Anemia, unspecified Status: Acute (5) Depression Code(s): F32.9 - Major depressive disorder, single episode, unspecified Status : Acute (6) Elevated troponin Code(s): R74.8 - Abnormal levels of other serum enzymes Status: Acute - Plan 1) GI bleed Found to have a mass with 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
--- NOTE | 2017-11-11 22:08 | MB ---
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 PATIENT PROFILE: The patient's history is obtained by reviewing the chart, speaking with the patient's daughter by phone and speaking with Dr. Cortez. The patient is an 81-year-old. She lives alone. She has been independent until presently. She has 6 children. She has a son and daughter who live locally. Her daughter lives 2 miles away from the patient. The patient was a homemaker. She has never smoked and never drank. She has not had care from a physician for a prolonged period of time. HISTORY OF PRESENT ILLNESS: The patient is an 81-year-old female of [place] descent. She has had few medical problems. She had a hip replacement several years ago, a cholecystectomy and a hysterectomy. She has no known medical problems prior to this current hospitalization. According to the patient's daughter and the patient, she was well until about 2 months ago. The patient then became ill. She is not able to describe the illness other than that she felt poorly. Her family had wanted her to see a physician for a period of time and the patient refused. She developed rectal bleeding, weakness and shortness of breath and the family found that she had blood on her clothing. She was brought to the emergency room for evaluation. At the time of her arrival in the ER, she was confused, which led to a CT scan of the head on 11/03/2017 showing a possible meningioma on the left side with no stroke. She had an MRI of the head with and without contrast. This showed a mass in the anterior inferior medial left frontal region thought to be a meningioma measuring 2.6 cm. There was a suspected area of prior infarction involving the left caudate and left external capsule region. There were mild periventricular small vessel ischemic changes in the white matter. Due to the shortness of breath, she had a chest CT angiogram, which showed moderate congestive heart failure with no evidence of pulmonary embolus. She had a CT of the abdomen and pelvis with IV contrast on 11/03/2017 because of abdominal pain. She had a 4.8 cm left renal cyst. She had diverticulosis. GI was consulted because of the rectal bleeding. On 11/05/2017, the patient had an upper and lower endoscopy. The colonoscopy showed severe diverticulosis, 2 polyps, hemorrhoids and an edematous area of mucosa in the cecum. Upper endoscopy was markedly abnormal. The patient was found to have a near circumferential mass measuring 3 x 3 cm in size in the distal esophagus and multiple biopsies were performed. There was a large ulcer found in the gastric fundus. I contacted Dr. Cortez this evening and spoke with him concerning the upper endoscopy. The ulcer and the distal esophageal mass are the same and Dr. Cortez indicates that it is not clear whether this is a gastric cancer growing up into the esophagus or an esophageal cancer growing down into the fundus of the stomach. The pathology report shows no significant abnormalities involving the colon. The biopsy of the distal esophagus/fundal ulcer reveals a poorly differentiated adenocarcinoma, diffuse type, arising in a background of moderately active chronic gastritis. No Helicobacter organisms were seen. Presently, the patient states she has occasional abdominal pain. She has no dysphagia. She has occasional constipation. She does not feel well, but cannot be more specific than this. PAST SURGICAL HISTORY: 1. Cholecystectomy. 2. Hysterectomy. 3. Hip replacement. PAST MEDICAL HISTORY: No medical problems. MEDICATIONS PRIOR TO ADMISSION: None. ALLERGIES: THE PATIENT IS UNAWARE OF ANY ALLERGIES. FAMILY HISTORY: Noncontributory. REVIEW OF SYSTEMS: No problems with vision or hearing. No chest pain, palpitations. Occasional shortness of breath. She had blood in her stool. Occasional abdominal discomfort. Occasional urinary frequency. Pain in the legs. The patient at the time of arrival to the hospital had transient atrial fibrillation and is now in sinus rhythm. LABORATORY STUDIES: On 11/10/2017, hemoglobin 12, white count 7800, platelets 192,000. At the time of her hospitalization on 11/06/2017, her hemoglobin had dropped as low as 7.6 due to her bleeding. Electrolytes, BUN and creatinine unremarkable except for slight elevation of the sodium currently at 146. Liver function tests are normal. Albumin is 2.8. PHYSICAL EXAMINATION: GENERAL: Reveals a frail female who appears older than her chronologic age of 81. VITAL SIGNS: Temperature 97.9, pulse 75, respiratory rate 18, blood pressure 160/70, O2 saturation 98%. HEENT: Head is normocephalic. Sclerae and conjunctivae are normal. Oropharynx with no mucosal lesions. LYMPHATIC: There is no cervical, supraclavicular, axillary or inguinal adenopathy. HEART: Regular rhythm. LUNGS: Clear without rales, wheezes or rhonchi. ABDOMEN: Slightly distended and tympanic. No hepatosplenomegaly. EXTREMITIES: Trace edema. MUSCULOSKELETAL: No bone pain. NEUROLOGIC: No focal weakness. Cognition and affect unremarkable. SKIN: Unremarkable. ASSESSMENT: The patient is a frail 81-year-old female who presented with gastrointestinal bleeding and was found to have an adenocarcinoma of the distal esophagus extending into the fundus or the fundus extending into the distal esophagus. She has no evidence of metastatic disease. If she was well, one would consider chemotherapy and radiation for an adenocarcinoma of the distal esophagus, followed by surgical resection. This woman is extremely frail and in speaking with Dr. Cortez, neither of us feel that she is a candidate for surgery and she indicates very clearly that she does not desire surgery. In fact, she desires that nothing be done. One could consider radiation alone or radiation with weekly chemotherapy such as carboplatin and Taxol with a small chance of cure and a reasonable chance of local control. Again, the patient shows little interest in undergoing any type of treatment. PLAN: I spoke with the patient's daughter by phone. I was hoping that she would be here this evening, but this is not possible. I will meet with her tomorrow at 8:30 a.m. and will again discuss the situation with the patient and her daughter. I believe that the most likely outcome will be hospice as the woman presently shows no interest in any type of treatment and she does understand the situation. If she develops signs and symptoms of obstruction, she could have an esophageal stent placed. MD ROMARIO Adler/ramze , 09:09 PM , 09:26 PM RAMA
[2017-11-12] MEDS: Sod Chloride 0.9% Inj 1,000 ML IV.CONT SCH ×4 (03:10→18:06)
[2017-11-12] MEDS: Lisinopril 10 MG Tablet PO SCH (08:21)
[2017-11-12] MEDS: dilTIAZem 60 MG Tablet PO SCH ×4 (08:21→20:42)
[2017-11-12] MEDS: Polyethylene Glycol 3350 17 GM Packet PO SCH ×2 (08:21→08:39)
--- NOTE | 2017-11-12 10:42 | P.PNONC ---
Subjective Interval history: Family discussion with Mrs. Boyce, her daughter Awilda, Dr. Andino and myself. Dr. Andino discussed treatment options with the patient and her daughter, including risks versus benefits of each. The patient wishes to not pursue further treatment at this time, she wishes to go home with hospice care. Her daughter is agreeable to this, however stating that she does not feel she is strong enough to be the sole provider for the patient. At this time the patient is weak and will be unable to live alone or care for herself. Awilda wishes to discuss this with her siblings to further decide the logistics of her mother's care. Objective Vital Signs/Intake & Output: Vital Signs 11/11/17 12:00 11/11/17 16:00 11/11/17 20:00 Temperature 97.8 F 97.7 F 97.9 F Pulse Rate 73 73 78 Respiratory Rate 20 20 18 Blood Pressure 167/70 H 168/77 H 163/74 H Pulse Oximetry 93 L 94 L 90 L 11/12/17 00:00 11/12/17 04:00 11/12/17 08:00 Temperature 97.6 F 97.3 F L 97.7 F Pulse Rate 78 76 95 H Respiratory Rate 18 18 18 Blood Pressure 142/77 H 152/78 H 172/75 H Pulse Oximetry 92 L 93 L Intake & Output 11/11/17 11/12/17 11/12/17 18:59 06:59 18:59 Intake Total 1000 / 1000 1280 / 1280 Output Total 7 / 7 1000 / 1000 Balance 993 / 993 280 / 280 Weight 57 kg Intake: IV 1000 / 1000 800 / 800 NS Inj 1,000 ML @ 84 mls/hr IV. 1000 / 1000 800 / 800 CONT .[id number] [facility] Rx#:[id number] Oral 480 / 480 Output: Urine 7 / 7 1000 / 1000 Other: Date of Last Bowel Movement 11/06/17 Result Diagrams: 11/10/17 04:22 11/10/17 04:22 Medications: Active Medications Generic Name Dose Route Start Last Admin Trade Name Freq PRN Reason Stop Dose Admin Diltiazem HCl 60 mg 11/09/17 18:00 11/12/17 08:21 Cardizem PO 60 mg QID [facility] Administration Sodium Chloride 1,000 mls @ 84 mls/hr 11/03/17 15:30 11/12/17 06:10 Ns Inj IV.CONT 84 mls/hr .[id number] [facility] Administration Labetalol HCl 10 mg 11/03/17 23:44 11/05/17 06:17 Trandate Inj IV.PUSH 10 mg Q1H PRN Administration Sbp>165, Dbp>90, Hr>65 Lactulose 30 ml 11/03/17 15:23 11/09/17 18:34 Lactulose Liq PO 30 ml DAILY PRN Administration [employer] Lisinopril 10 mg 11/12/17 09:00 11/12/17 08:21 Prinivil PO 10 mg DAILY [facility] Administration Pantoprazole Sodium 40 mg 11/11/17 21:00 11/12/17 08:21 Protonix PO 40 mg BID [facility] Administration Polyethylene Glycol 17 gm 11/10/17 14:00 11/12/17 08:39 Miralax PO Not Given DAILY [facility] Sodium Chloride 2 ml 11/03/17 21:00 11/11/17 20:18 Ns Flush IV.FLUSH Not Given BID [facility] Objective Remarks: GENERAL: Elderly frail female patient, in no acute distress. Mildly lethargic. SKIN: Warm and dry. HEAD: Normocephalic. EYES: No scleral icterus. No injection or drainage. NECK: Supple, trachea midline. CARDIOVASCULAR: Regular rate and rhythm without murmurs. RESPIRATORY: Anterior breath sounds clear, equal bilaterally. No accessory muscle use. GASTROINTESTINAL: Abdomen soft, non-tender, nondistended. EXTREMITIES: No cyanosis, or edema. MUSCULOSKELETAL: Generalized weakness. NEUROLOGICAL: No obvious focal deficit. Mildly lethargic, alert, and oriented. PSYCHIATRIC: Appropriate mood and affect; insight and judgment normal. Assessment/Plan - Plan Mrs. 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 Dr. Andino had an extensive conversation with the patient and her daughter in regards to treatment options, risk and benefits of each. Given the patient's frailty she is not felt to be a surgical candidate at this time. The patient has made her wishes very clear that she would not like to pursue treatment at this time. Plan: 1. 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 Treatment options discussed with the patient and family. The patient wishes to not pursue further treatment. She wishes to go home with hospice. 2. We will consult hospice for evaluation. Patient is to weak to be home alone and care for herself. 3. From an oncology standpoint, the patient can be discharged home when a safe discharge plan is in place. - Attending Statement The exam, history, and the medical decision-making described in the above note were completed with the assistance of the mid-level provider. I reviewed and agree with the findings presented. I attest that I had a [id number] encounter with the patient on the same day, and personally performed and documented my assessment and findings in the medical record. I discussed the situation with the patient and daughter at length. Options were discussed ranging from chemotherapy/radiation followed by surgery to hospice care. The patient is frail. She does not desire any further workup or treatment. She understands that she is very ill and dying. She does not want to undergo any treatment. Under the circumstances I believe that hospice is most appropriate. The patient is declining rapidly and at some point may benefit from the hospice care center.
--- NOTE | 2017-11-12 17:01 | P.PNIM ---
Subjective Interval history: PATIENT IS INTERESTED IN HOME WITH HOSPICE CARE HOSPICE TO SEE TOMORROW NOT WANTING AGGRESSIVE TREATMENT AT THIS TIME PER DW DR [facility]IX TO MEET WITH HOSPICE TOMORROW Physical Exam Vital signs: Vital Signs 11/11/17 20:00 11/12/17 00:00 11/12/17 04:00 Temperature 97.9 F 97.6 F 97.3 F L Pulse Rate 78 78 76 Respiratory Rate 18 18 18 Blood Pressure 163/74 H 142/77 H 152/78 H Pulse Oximetry 90 L 92 L 93 L 11/12/17 08:00 11/12/17 12:00 Temperature 97.7 F 97.2 F L Pulse Rate 116 H 94 H Respiratory Rate 18 16 Blood Pressure 172/75 H 133/71 Pulse Oximetry 92 L Intake & Output 11/11/17 11/12/17 11/12/17 18:59 06:59 18:59 Intake Total 1000 / 1000 1280 / 1280 Output Total 7 / 7 1000 / 1000 Balance 993 / 993 280 / 280 Weight 57 kg Intake: IV 1000 / 1000 800 / 800 NS Inj 1,000 ML @ 84 mls/hr IV. 1000 / 1000 800 / 800 CONT .[id number] [facility] Rx#:[id number] Oral 480 / 480 Output: Urine / 7 1000 / 1000 Other: Date of Last Bowel Movement 11/06/17 Narrative: GENERAL: NAD, AAOx3 SKIN: Warm and dry. HEAD: Atraumatic. Normocephalic. EYES: Pupils equal and round. No scleral icterus. No injection or drainage. ENT: No nasal bleeding or discharge. Mucous membranes pink and moist. NECK: Trachea midline. No JVD. CARDIOVASCULAR: Normal sinus rhythm. 1/6 crescendo-decrescendo murmur to the RSB RESPIRATORY: No accessory muscle use. Clear to auscultation. Breath sounds equal bilaterally. GASTROINTESTINAL: Abdomen soft, non-tender, nondistended. Hepatic and splenic margins not palpable. MUSCULOSKELETAL: Extremities without clubbing, cyanosis, or edema. No obvious deformities. NEUROLOGICAL: Awake and alert. No obvious cranial nerve deficits. Motor grossly within normal limits. Five out of 5 muscle strength in the arms and legs. Normal speech. PSYCHIATRIC: Appropriate mood and affect; insight and judgment normal. Results - Labs CBC & Chem 7: 11/10/17 04:22 11/10/17 04:22 - Imaging Head MRI 11/03/17 00:00 CONCLUSION: 1. Persistent extra-axial mass in the anterior inferior medial left frontal region thought to represent a meningioma measuring up to 2.6 cm. There is increased signal seen in the adjacent left frontal white matter. Mass effect on the ventricle and cortical sulci is not seen suggesting this could be related to underlying gliosis versus edema without significant effacement of the cortical sulci or mass effect on the left lateral ventricle. 2. Suspected areas of prior infarction at the left caudate and left external capsule region. 3. Mild periventricular small vessel ischemic change in the white matter. Chest X-Ray 11/03/17 12:08 CONCLUSION: 1. Mild patchy airspace disease in the left lower lung zone which may be projectional or reflect atelectasis. Head CT 11/03/17 12:08 CONCLUSION: 1. 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 Stroke could be similar between 3 and 7 days in age. 2. I have no prior studies for comparison. Venous Doppler Study 11/03/17 12:12 CONCLUSION: 1. The study is negative for bilateral lower extremity deep venous thrombosis. Chest CTA 11/03/17 13:37 CONCLUSION: 1. Moderate congestive failure with no central pulmonary emboli - Procedures COLONOSCOPY PROCEDURE REPORT EXAM DATE: 11/05/2017 PATIENT NAME: Manuela Boyce MR #: [id number] BIRTHDATE: 1935 ENDOSCOPIST: Aleksey Cortez MD ORDER #: [id number] FINANCIAL PROCESSING CLERK: Jackie Fitzgerald and Nancy Liu STATUS: inpatient INDICATIONS: The patient is a 81 yr old female here for a colonoscopy due to hematochezia and anemia, non-specific Colonoscopy with control of bleeding MEDICATIONS: None and Per Anesthesia. PREP QUALITY: The [place] Bowel Prep Score was Right colon 2, Mid colon 2, and Left colon 2. Total = 6. PREP TYPE:GoLytely ESTIMATED BLOOD LOSS: None CONSENT: The patient understands the risks and benefits of the procedure and understands that these risks include, but are not limited to: sedation, allergic reaction, infection, perforation and/or bleeding. Alternative means of evaluation and treatment include, among others: physical exam, x-rays, and/or surgical intervention. The patient elects to proceed with this endoscopic procedure. medical equipment was checked for proper function. Hand hygiene and appropriate measures for infection prevention was taken. After the risks, benefits and alternatives of the procedure were thoroughly explained, Informed consent was verified, confirmed and timeout was successfully executed by the treatment team. A digital exam revealed external hemorrhoids The Pentax EC-3490Li endoscope was introduced through the anus and advanced to the cecum, which was identified by both the appendix and ileocecal valve. The instrument was then slowly withdrawn as the colon was fully examined. COLON FINDINGS: Severe diverticulosis was noted throughout the entire examined colon. No bleeding was noted from the diverticulosis. A 2 x 2cm patch of abnormal mucosa was found at the cecum. The mucosa was congested, edematous and erythematous. Multiple biopsies were performed using cold forceps. Two polypoid shaped semi-pedunculated polyps measuring 10 mm in size were found in the sigmoid colon. A polypectomy was performed using snare cautery. The resection was complete and the polyp tissue was completely retrieved. Retroflexed views revealed internal hemorrhoids and Retroflexed views revealed medium internal hemorrhoids The scope was then completely withdrawn from the patient and the procedure terminated. PROCEDURE WITHDRAWAL TIME:10minutes ADVERSE EVENTS: There were no complications. IMPRESSIONS: 1. Severe diverticulosis was noted throughout the entire examined colon 2. 2 x 2cm abnormal mucosa was found at the cecum; The mucosa was congested, edematous and erythematous; multiple biopsies were performed using cold forceps 3. Two semi-pedunculated polyps were found in the sigmoid colon; polypectomy was performed using snare cautery 4. Retroflexed views revealed internal hemorrhoids 5. Retroflexed views revealed medium internal hemorrhoids 6. Revealed external hemorrhoids RECOMMENDATIONS: 1. Await biopsy results. Biopsy results will not be ready for 7-10 days. If you don't hear from us in two weeks, call our office for results. 2. Continue surveillance 3. Yearly hemoccult 4. No seeds, nuts and popcorn in diet RECALL: Return 1 year Colonoscopy, pending biopsy results Aleksey Cortez MD eSigned: Aleksey Cortez MD 11/05/2017 10:44 AM EGD PROCEDURE REPORT EXAM DATE: 11/05/2017 PATIENT NAME: Manuela Boyce MR #: [id number] BIRTHDATE: 1935 ATTENDING: Aleksey Cortez MD ORDER #: [id number] FINANCIAL PROCESSING CLERK: Jackie Fitzgerald and Nancy Liu STATUS: inpatient INDICATIONS: The patient is a 81 yr old female here for an EGD due to iron deficiency anemia PROCEDURE PERFORMED: EGD w/ biopsy MEDICATIONS: None and Per Anesthesia. TOPICAL ANESTHETIC: CONSENT: The patient understands the risks and benefits of the procedure and understands that these risks include, but are not limited to: sedation, allergic reaction, infection, perforation and/or bleeding. Alternative means of evaluation and treatment include, among others: physical exam, x-rays, and/or surgical intervention. The patient elects to proceed with this endoscopic procedure. medical equipment was checked for proper function. Hand hygiene and appropriate measures for infection prevention was taken. After the risks, benefits and alternatives of the procedure were thoroughly explained, Informed consent was verified, confirmed and timeout was successfully executed by the treatment team. The patient was anesthetized with topical anesthesia and the EC-3490Li (Pedi C) endoscope was introduced through the mouth and advanced to the second portion of the duodenum. Retroflexed views revealed an ulcer The gastroscope was then slowly withdrawn and removed. ESOPHAGUS: A near circumferential ulcerated and fungating mass, measuring 3 X 3cm in size, with friable surfaces was found in the distal esophagus. Multiple biopsies were performed using cold forceps. Sample sent for histology. STOMACH: A large non-bleeding, deep and clean-based ulcer with surrounding edema was found in the gastric fundus. DUODENUM: The duodenal mucosa appeared normal in the bulb and second portion of the duodenum. ADVERSE EVENTS: There were no complications. IMPRESSIONS: 1. Near circumferential mass, measuring 3 X 3cm in size, was found in the distal esophagus; multiple biopsies were performed 2. Large ulcer was found in the gastric fundus 3. Normal duodenal mucosa in the bulb and second portion of the duodenum 4. Retroflexed views revealed an ulcer RECOMMENDATIONS: 1. Await biopsy results. Biopsy results will not be ready for 7-10 days. If you don't hear from us in two weeks, call our office for biopsy results. 2. Anti-reflux regimen 3. Continue PPI PATIENT CONDITION: stable DISPOSITION: Inpatient REPEAT EXAM: Return 3 months EGD pending biopsy results Aleksey Cortez MD eSigned: Aleksey Cortez MD 11/05/2017 10:20 AM Assessment and Plan - Plan Poorly differentiated gastric adenocarcinoma Oncology consult DONE- PATIENT INTERESTED IN HOSPICE- BUT WANTS TO GO HOME Acute encephalopathy-resolved History of previous stroke/TIA CT head: Old meningioma parafalcine region on the left with subacute stroke Aspirin held due to GI bleed Respiratory insufficiency-resolved Continue DuoNeb every 6 hours PRN Chest x-ray did show evidence of pulmonary vascular congestion but clinically patient is not shortness of breath CTA negative for PE Atrial fibrillation with RVR-resolved echo with EF 55% Anticoagulation held due to GI bleed. She remains in normal sinus rhythm Continue Cardizem, continue telemetry Appreciate cardiology consult Lower GI bleed, anemia s/p EGD with distal esophageal mass and gastric ulcer POORLY DIFFERENTIATED GASTRIC ADENOCARCINOMA s/p colonoscopy; s/p polypectomy sigmoid colon with abnormal cecum Pathology shows tubular adenoma, precancerous finding but typically benign s/p PRBC transfusion, continue to follow periodic CBC Appreciate gastroenterology consult hypophosphatemia, hyponatremia Continue fluid restriction Continue to replace as needed Follow with lab work DVT prophylaxis Ambulation and SCDs, chemoprophylaxis held due to GI bleed Discharge Planning CONSIDERING HOSPICE TO MEET WITH THEM TOMORROW Code Status: FULL CODE AT THIS TIME Discussed Condition With: RN AND PT AND CM Discharge Planning: PENDING SAFE DC
--- NOTE | 2017-11-12 17:41 | P.PNGI ---
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 Has seen oncology today with her daughter <Amanda Chan - Last Filed: 11/12/17 17:34> Physical Exam Vital signs: Vital Signs 11/11/17 20:00 11/12/17 00:00 11/12/17 04:00 Temperature 97.9 F 97.6 F 97.3 F L Pulse Rate 78 78 76 Respiratory Rate 18 18 18 Blood Pressure 163/74 H 142/77 H 152/78 H Pulse Oximetry 90 L 92 L 93 L 11/12/17 08:00 11/12/17 12:00 Temperature 97.7 F 97.2 F L Pulse Rate 116 H 94 H Respiratory Rate 18 16 Blood Pressure 172/75 H 133/71 Pulse Oximetry 92 L Intake & Output 11/11/17 11/12/17 11/12/17 18:59 06:59 18:59 Intake Total 1000 / 1000 1280 / 1280 Output Total 7 7 1000 / 1000 Balance 993 / 993 280 / 280 Weight 57 kg Intake: IV 1000 / 1000 800 / 800 NS Inj 1,000 ML @ 84 mls/hr IV. 1000 / 1000 800 / 800 CONT .[id number] [facility] Rx#:[id number] Oral 480 / 480 Output: Urine 1000 / 1000 Other: Date of Last Bowel Movement 11/06/17 - Constitutional no acute distress - Routine HEENT Exam ENT: Present: mucous membranes dry - Routine Respiratory Exam Present: accessory muscle use - Routine Abdominal Exam Present: soft - Routine Skin Exam Present: pallor - Routine Neurological Exam Present: alert (Answers only simple questions) <Amanda Chan - Last Filed: 11/12/17 17:34> Vital signs: Vital Signs 11/12/17 08:00 11/12/17 12:00 11/12/17 16:00 Temperature 97.7 F 97.2 F L 97.9 F Pulse Rate 116 H 78 86 Respiratory Rate 18 16 16 Blood Pressure 172/75 H 133/71 179/75 H Pulse Oximetry 92 L 93 L 11/12/17 20:00 11/13/17 00:00 11/13/17 04:00 Temperature 98.8 F 98.4 F 97.3 F L Pulse Rate 71 75 67 Respiratory Rate 18 18 19 Blood Pressure 156/71 H 156/71 H 157/72 H Pulse Oximetry 92 L 93 L 92 L Intake & Output 11/12/17 11/13/17 11/13/17 18:59 06:59 18:59 Intake Total 1000 / 1000 1680 / 1680 Output Total 850 / 850 Balance 1000 / 1000 830 / 830 Weight 57.3 kg Intake: IV 1000 / 1000 1000 / 1000 NS Inj 1,000 ML @ 84 mls/hr IV. 1000 / 1000 1000 / 1000 CONT .[id number] [facility] Rx#:[id number] Oral 680 / 680 Output: Urine 850 / 850 Other: Date of Last Bowel Movement 11/12/17 # Bowel Movements 1 <Louis Villa A - Last Filed: 11/13/17 07:16> Results - Labs CBC & Chem 7: 11/10/17 04:22 11/10/17 04:22 - Procedures COLONOSCOPY PROCEDURE REPORT EXAM DATE: 11/05/2017 PATIENT NAME: Manuela Boyce MR #: [id number] BIRTHDATE: 1935 ENDOSCOPIST: Aleksey Cortez MD ORDER #: [id number] WINDOW [employer]IT AIR CONDITIONING MECHANIC: Jackie Fitzgerald and Nancy Liu STATUS: inpatient INDICATIONS: The patient is a 81 yr old female here for a colonoscopy due to hematochezia and anemia, non-specific Colonoscopy with control of bleeding MEDICATIONS: None and Per Anesthesia. PREP QUALITY: The [place] Bowel Prep Score was Right colon 2, Mid colon 2, and Left colon 2. Total = 6. PREP TYPE:GoLytely ESTIMATED BLOOD LOSS: None CONSENT: The patient understands the risks and benefits of the procedure and understands that these risks include, but are not limited to: sedation, allergic reaction, infection, perforation and/or bleeding. Alternative means of evaluation and treatment include, among others: physical exam, x-rays, and/or surgical intervention. The patient elects to proceed with this endoscopic procedure. medical equipment was checked for proper function. Hand hygiene and appropriate measures for infection prevention was taken. After the risks, benefits and alternatives of the procedure were thoroughly explained, Informed consent was verified, confirmed and timeout was successfully executed by the treatment team. A digital exam revealed external hemorrhoids The Pentax EC-3490Li endoscope was introduced through the anus and advanced to the cecum, which was identified by both the appendix and ileocecal valve. The instrument was then slowly withdrawn as the colon was fully examined. COLON FINDINGS: Severe diverticulosis was noted throughout the entire examined colon. No bleeding was noted from the diverticulosis. A 2 x 2cm patch of abnormal mucosa was found at the cecum. The mucosa was congested, edematous and erythematous. Multiple biopsies were performed using cold forceps. Two polypoid shaped semi-pedunculated polyps measuring 10 mm in size were found in the sigmoid colon. A polypectomy was performed using snare cautery. The resection was complete and the polyp tissue was completely retrieved. Retroflexed views revealed internal hemorrhoids and Retroflexed views revealed medium internal hemorrhoids The scope was then completely withdrawn from the patient and the procedure terminated. PROCEDURE WITHDRAWAL TIME:10minutes ADVERSE EVENTS: There were no complications. IMPRESSIONS: 1. Severe diverticulosis was noted throughout the entire examined colon 2. 2 x 2cm abnormal mucosa was found at the cecum; The mucosa was congested, edematous and erythematous; multiple biopsies were performed using cold forceps 3. Two semi-pedunculated polyps were found in the sigmoid colon; polypectomy was performed using snare cautery 4. Retroflexed views revealed internal hemorrhoids 5. Retroflexed views revealed medium internal hemorrhoids 6. Revealed external hemorrhoids RECOMMENDATIONS: 1. Await biopsy results. Biopsy results will not be ready for 7-10 days. If you don't hear from us in two weeks, call our office for results. 2. Continue surveillance 3. Yearly hemoccult 4. No seeds, nuts and popcorn in diet RECALL: Return 1 year Colonoscopy, pending biopsy results Aleksey Cortez MD eSigned: Aleksey Cortez MD 11/05/2017 10:44 AM EGD PROCEDURE REPORT EXAM DATE: 11/05/2017 PATIENT NAME: Manuela Boyce MR #: [id number] BIRTHDATE: 1935 ATTENDING: Aleksey Cortez MD ORDER #: [id number] WINDOW UNIT AIR CONDITIONING MECHANIC: Jackie Fitzgerald and Nancy Liu STATUS: inpatient INDICATIONS: The patient is a 81 yr old female here for an EGD due to iron deficiency anemia PROCEDURE PERFORMED: EGD w/ biopsy MEDICATIONS: None and Per Anesthesia. TOPICAL ANESTHETIC: CONSENT: The patient understands the risks and benefits of the procedure and understands that these risks include, but are not limited to: sedation, allergic reaction, infection, perforation and/or bleeding. Alternative means of evaluation and treatment include, among others: physical exam, x-rays, and/or surgical intervention. The patient elects to proceed with this endoscopic procedure. medical equipment was checked for proper function. Hand hygiene and appropriate measures for infection prevention was taken. After the risks, benefits and alternatives of the procedure were thoroughly explained, Informed consent was verified, confirmed and timeout was successfully executed by the treatment team. The patient was anesthetized with topical anesthesia and the EC-3490Li (Pedi C) endoscope was introduced through the mouth and advanced to the second portion of the duodenum. Retroflexed views revealed an ulcer The gastroscope was then slowly withdrawn and removed. ESOPHAGUS: A near circumferential ulcerated and fungating mass, measuring 3 X 3cm in size, with friable surfaces was found in the distal esophagus. Multiple biopsies were performed using cold forceps. Sample sent for histology. STOMACH: A large non-bleeding, deep and clean-based ulcer with surrounding edema was found in the gastric fundus. DUODENUM: The duodenal mucosa appeared normal in the bulb and second portion of the duodenum. ADVERSE EVENTS: There were no complications. IMPRESSIONS: 1. Near circumferential mass, measuring 3 X 3cm in size, was found in the distal esophagus; multiple biopsies were performed 2. Large ulcer was found in the gastric fundus 3. Normal duodenal mucosa in the bulb and second portion of the duodenum 4. Retroflexed views revealed an ulcer RECOMMENDATIONS: 1. Await biopsy results. Biopsy results will not be ready for 7-10 days. If you don't hear from us in two weeks, call our office for biopsy results. 2. Anti-reflux regimen 3. Continue PPI PATIENT CONDITION: stable DISPOSITION: Inpatient REPEAT EXAM: Return 3 months EGD pending biopsy results Aleksey Cortez MD eSigned: Aleksey Cortez MD 11/05/2017 10:20 AM <Amanda Chan - Last Filed: 11/12/17 17:34> - Labs CBC & Chem 7: 11/10/17 04:22 11/10/17 04:22 <Louis Villa - Last Filed: 11/13/17 07:16> Assessment and Plan - Plan Acute GI bleed-woke up at 0600 this morning feeling notably weak with bright red and dark rectal bleeding . Rectal bleeding associated with lower abdominal cramping and generalized abdominal tenderness. pt denies hx of GI bleeding in the past. Denies taking any blood thinners or Aspirin. Denies ever having had upper or lower endoscopy. Hgb 10.1, Hct 30 which is baseline for patient. Patient denies nausea,vomiting or diarrhea. She endorses having constipation with hard stools intermittently over the last 3-4 months. Pt denies unintended weight loss. Patient denies difficulty swallowing or heartburn. Workup revealed elevated Troponin 0.11, BNP 256. On arrival to ER, pt was noted to be in Afib with RVR which resolved spontaneously. CT abdomen and pelvis--> negative for Ischemic Colitis or Diverticulitis. - Elevated Troponin and BNP- Abnormal findings on EKG on arrival to ER. Pt noted to be in Afib with RVR. Afib resolved spontaneously. 11/03/17. Chest CT negative for pulmonary embolism. Doppler study negative for DVT - Hx of TIA per pts daughter [address] head 11/03/17 1. 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 Stroke could be similar between 3 and 7 days in age. 2. I have no prior studies for comparison. (11/06) Pt resting in bed S/P EGD and colonoscopy yesterday. Denies any nausea or vomiting. Poor appetite, her daughter brought her food from [employer] but she does not feel like eating. Complaining of pain in her abdomen. Pt has not had BM since GI procedures yesterday. Some drop in H/H- 2 U PRBCs ordered and transfusing. Pt in a-fib with RVR, cardiology following EGD (11/05) Near circumferential mass, measuring 3 X 3cm in size, was found in the distal esophagus; multiple biopsies were performed. Large ulcer was found in the gastric fundus. Normal duodenal mucosa in the bulb and second portion of the duodenum. Retroflexed views revealed an ulcer Colonoscopy (11/05) Severe diverticulosis was noted throughout the entire examined colon. 2 x 2cm abnormal mucosa was found at the cecum; The mucosa was congested, edematous and erythematous; multiple biopsies were performed using cold forceps. Two semi-pedunculated polyps were found in the sigmoid colon; polypectomy was performed using snare cautery. Internal and external hemorrhoids Pt denies history of smoking. Denies personal or family history of cancer. 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 GI procedures as above. Palliative care following, note states that pt wants to await biopsy results before making any further treatments regarding goals of treatment. 11/10/2017 patient chief complaint appears to be constipation, states lactulose ineffective. Bowel sounds are soft without any abdominal pain patient is able to eat regular food. Current hemoglobin stable at 12, no obvious nausea or vomiting. Noted above patient is status post EGD colonoscopy. No obvious bleeding and hemoglobin appears stable currently continues with Protonix drip but will transition to p.o. in a.m. if patient is stable 11/11/2017 patient is showing some gradual improvement although she still has some decreased appetite. Discussed with her small feedings with hydration 4-6 times a day. Patient will need follow-up with her biopsies in the office once she is stable for discharge. Monitoring and discussing bowel regimen patient states still no bowel movement after MiraLAX and mag citrate. Transition patient to p.o. PPI. 11/12/2017, patient has minimal appetite and is hoping to go home very soon. She was seen per oncology today for adenocarcinoma biopsies of the distal esophagus. According to the record patient wishes not to pursue any further treatment and wants to be taken home with hospice. According to the record patient cannot go home and take care of herself so discharge planning is in process. GI will sign off please reconsult if needed. Supportive care to patient and family Patient was seen per myself and Dr. Villa, note was written on his behalf <Amanda Chan - Last Filed: 11/12/17 17:34> - Attending Attestation Biopsies results noted. Will sign off for now, please notify us if needed again. <Louis Villa - Last Filed: 11/13/17 07:16>
--- NOTE | 2017-11-12 18:10 | P.PNCA ---
Subjective Interval history: Heart rates controlled Mild elevation of BP Physical Exam Vital signs: Vital Signs 11/11/17 20:00 11/12/17 00:00 11/12/17 04:00 Temperature 97.9 F 97.6 F 97.3 F L Pulse Rate 78 78 76 Respiratory Rate 18 18 18 Blood Pressure 163/74 H 142/77 H 152/78 H Pulse Oximetry 90 L 92 L 93 L 11/12/17 08:00 11/12/17 12:00 Temperature 97.7 F 97.2 F L Pulse Rate 116 H 94 H Respiratory Rate 18 16 Blood Pressure 172/75 H 133/71 Pulse Oximetry 92 L Intake & Output 11/11/17 11/12/17 11/12/17 18:59 06:59 18:59 Intake Total 1000 / 1000 1280 / 1280 1000 / 1000 Output Total 7 1000 / 1000 Balance 993 / 993 280 / 280 1000 / 1000 Weight 57 kg Intake: IV 1000 / 1000 800 / 800 1000 / 1000 NS Inj 1,000 ML @ 84 mls/hr IV. 1000 / 1000 800 / 800 1000 / 1000 CONT .[id number] [facility] Rx#:[id number] Oral 480 / 480 Output: Urine 1000 / 1000 Other: Date of Last Bowel Movement 11/06/17 Narrative: GENERAL: NAD, AAOx3 SKIN: Warm and dry. HEAD: Atraumatic. Normocephalic. EYES: Pupils equal and round. No scleral icterus. No injection or drainage. ENT: No nasal bleeding or discharge. Mucous membranes pink and moist. NECK: Trachea midline. No JVD. CARDIOVASCULAR: Normal sinus rhythm. 1/6 crescendo-decrescendo murmur to the RSB RESPIRATORY: No accessory muscle use. Clear to auscultation. Breath sounds equal bilaterally. GASTROINTESTINAL: Abdomen soft, non-tender, nondistended. Hepatic and splenic margins not palpable. MUSCULOSKELETAL: Extremities without clubbing, cyanosis, or edema. No obvious deformities. NEUROLOGICAL: Awake and alert. No obvious cranial nerve deficits. Motor grossly within normal limits. Five out of 5 muscle strength in the arms and legs. Normal speech. PSYCHIATRIC: Appropriate mood and affect; insight and judgment normal. Assessment and Plan - Assessment (1) Lower GI bleed Code(s): K92.2 - Gastrointestinal hemorrhage, unspecified Status: Acute (2) Atrial fibrillation with rapid ventricular response Code(s): I48.91 - Unspecified atrial fibrillation Status: Acute (3) GI bleeding Code(s): K92.2 - Gastrointestinal hemorrhage, unspecified Status: Acute (4) Anemia Code(s): D64.9 - Anemia, unspecified Status: Acute (5) Depression Code(s): F32.9 - Major depressive disorder, single episode, unspecified Status : Acute (6) Elevated troponin Code(s): R74.8 - Abnormal levels of other serum enzymes Status: Acute - Plan 1) GI bleed Found to have a mass with ulcer in distal stomach Adenocarcinoma Plan for hospice 2) Afib with RVR on admission Currently sinus rhythm Cardizem PO Can be changed to Cardizem CD 240mg on discharge Most likely due to overall illness Not an anticoagulation candidate due to GI mass/bleed If possible would place on ASA 81mg, but might not be possible with current mass/ulcer 3) Elevated troponins Most likely Type 2 in nature Con't medical management per her wishes 4) HTN Increase Lisinopril
[2017-11-13 05:03] VITALS: O2SAT 92
[2017-11-13] MEDS: Sod Chloride 0.9% Inj 1,000 ML IV.CONT SCH ×2 (05:51→12:58)
[2017-11-13 07:30] LABS: Baso # (Auto) 0.1 th/mm3 (0.0-0.2); Baso % (Auto) 1.2 % (0.0-2.0); Eos # (Auto) 0.1 th/mm3 (0.0-0.4); Hematocrit 35.4 % (35.0-46.0); Hemoglobin 12.1 gm/dL (11.6-15.3); Lymph # (Auto) 1.5 th/mm3 (1.0-4.8); Lymph % (Auto) 21.5 % (9.0-44.0); Mean Corpuscular HGB Conc 34.1 % (32.0-36.0); Mean Corpuscular Hemoglobin 31.1 pg (27.0-34.0); Mean Corpuscular Volume 91.1 fL (80.0-100.0); Mean Platelet Volume 8.4 fL (7.0-11.0); Mono # (Auto) 0.6 th/mm3 (0.0-0.9); Mono % (Auto) 8.5 % (0.0-8.0); Neut # (Auto) 4.7 th/mm3 (1.8-7.7); Neut % (Auto) 66.8 % (16.0-70.0); Platelet Count 216 th/mm3 (150-450); Red Blood Count 3.89 mil/mm3 (4.00-5.30); Red Cell Distribution Width 14.8 % (11.6-17.2)
[2017-11-13 08:06] LABS: Albumin 2.5 g/dL (3.4-5.0); Anion Gap 10 meq/L (5-15); Aspartate Aminotransferase 14 U/L (15-37); Blood Urea Nitrogen 10 mg/dL (7-18); Calcium 8.2 mg/dL (8.5-10.1); Chloride 110 meq/L (98-107); Glomerular Filtration Rate Greater Than 89 mL/min (>89); Glucose,Random 97 mg/dL (74-106); Magnesium 2.2 mg/dL (1.5-2.5); Potassium 3.4 meq/L (3.5-5.1); Sodium 146 meq/L (136-145)
[2017-11-13 08:07] LABS: Alanine Aminotransferase 15 U/L (10-53); Phosphorus 2.9 mg/dL (2.5-4.9)
[2017-11-13 08:09] LABS: Alkaline Phosphatase 56 U/L (45-117); Total Protein 5.9 g/dL (6.4-8.2)
[2017-11-13] MEDS: dilTIAZem 60 MG Tablet PO SCH ×2 (08:50→12:17)
[2017-11-13] MEDS: Polyethylene Glycol 3350 17 GM Packet PO SCH (08:51)
[2017-11-13] MEDS: Lisinopril 10 MG Tablet PO SCH (08:51)
[2017-11-13 12:41] VITALS: BP 179/79; RESP 17; TEMP 98.3
--- NOTE | 2017-11-13 13:11 | P.PNIM ---
Subjective Interval history: 9 PATIENT IS INTERESTED IN HOME WITH HOSPICE CARE HOSPICE TO SEE TOMORROW NOT WANTING AGGRESSIVE TREATMENT AT THIS TIME PER DW DR NIX TO MEET WITH HOSPICE TOMORROW 96 DOES NOT WANT HOSPICE WANTS TO GO HOME WITH FAMILY [facility] AND RN REPLACE POTASSIUM DC TO HOME TODAY Physical Exam Vital signs: Vital Signs 11/12/17 16:00 11/12/17 20:00 11/13/17 00:00 Temperature 97.9 F 98.8 F 98.4 F Pulse Rate 86 71 75 Respiratory Rate 16 18 18 Blood Pressure 179/75 H 156/71 H 156/71 H Pulse Oximetry 93 L 92 L 93 L 11/13/17 04:00 11/13/17 08:00 11/13/17 12:00 Temperature 97.3 F L 97.9 F 98.3 F Pulse Rate 67 62 70 Respiratory Rate 19 18 17 Blood Pressure 157/72 H 177/82 H 179/79 H Pulse Oximetry 92 L 92 L 92 L Intake & Output 11/12/17 11/13/17 11/13/17 18:59 06:59 18:59 Intake Total 1000 / 1000 1680 / 1680 Output Total 850 / 850 Balance 1000 / 1000 830 / 830 Weight 57.3 kg Intake: IV 1000 / 1000 1000 / 1000 NS Inj 1,000 ML @ 84 mls/hr IV. 1000 / 1000 1000 / 1000 CONT .[id number] [facility] Rx#:[id number] Oral 680 / 680 Output: Urine 850 / 850 Other: Date of Last Bowel Movement 11/12/17 # Bowel Movements 1 Narrative: GENERAL: NAD, AAOx3 SKIN: Warm and dry. HEAD: Atraumatic. Normocephalic. EYES: Pupils equal and round. No scleral icterus. No injection or drainage. ENT: No nasal bleeding or discharge. Mucous membranes pink and moist. NECK: Trachea midline. No JVD. CARDIOVASCULAR: Normal sinus rhythm. 1/6 crescendo-decrescendo murmur to the RSB RESPIRATORY: No accessory muscle use. Clear to auscultation. Breath sounds equal bilaterally. GASTROINTESTINAL: Abdomen soft, non-tender, nondistended. Hepatic and splenic margins not palpable. MUSCULOSKELETAL: Extremities without clubbing, cyanosis, or edema. No obvious deformities. NEUROLOGICAL: Awake and alert. No obvious cranial nerve deficits. Motor grossly within normal limits. Five out of 5 muscle strength in the arms and legs. Normal speech. PSYCHIATRIC: Appropriate mood and affect; insight and judgment normal. Results - Labs CBC & Chem 7: 11/13/17 05:53 11/13/17 05:53 Laboratory Results - last 24 hr 11/13/17 11/13/17 05:53 05:53 WBC 7.0 RBC 3.89 L Hgb 12.1 Hct 35.4 MCV 91.1 MCH 31.1 MCHC 34.1 RDW 14.8 Plt Count 216 MPV 8.4 Neut % (Auto) 66.8 Lymph % (Auto) 21.5 [place] % (Auto) 8.5 H Eos % (Auto) 2.0 Baso % (Auto) 1.2 Neut # (Auto) 4.7 Lymph # (Auto) 1.5 [place] # (Auto) 0.6 Eos # (Auto) 0.1 Baso # (Auto) 0.1 WBC Differential . Differential Comment Auto diff final Sodium 146 H Potassium 3.4 L Chloride 110 H Carbon Dioxide 26.0 Anion Gap 10 BUN 10 Creatinine 0.46 L Estimated GFR Greater than 89 Random Glucose 97 Calcium 8.2 L Phosphorus 2.9 Magnesium 2.2 Total Bilirubin 0.7 AST 14 L ALT 15 Alkaline Phosphatase 56 Total Protein 5.9 L Albumin 2.5 L - Imaging Head MRI 11/03/17 00:00 CONCLUSION: 1. Persistent extra-axial mass in the anterior inferior medial left frontal region thought to represent a meningioma measuring up to 2.6 cm. There is increased signal seen in the adjacent left frontal white matter. Mass effect on the ventricle and cortical sulci is not seen suggesting this could be related to underlying gliosis versus edema without significant effacement of the cortical sulci or mass effect on the left lateral ventricle. 2. Suspected areas of prior infarction at the left caudate and left external capsule region. 3. Mild periventricular small vessel ischemic change in the white matter. Chest X-Ray 11/03/17 12:08 CONCLUSION: 1. Mild patchy airspace disease in the left lower lung zone which may be projectional or reflect atelectasis. Head CT 11/03/17 12:08 CONCLUSION: 1. 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 Stroke could be similar between 3 and 7 days in age. 2. I have no prior studies for comparison. Venous Doppler Study 11/03/17 12:12 CONCLUSION: 1. The study is negative for bilateral lower extremity deep venous thrombosis. Chest CTA 11/03/17 13:37 CONCLUSION: 1. Moderate congestive failure with no central pulmonary emboli - Procedures COLONOSCOPY PROCEDURE REPORT EXAM DATE: 11/05/2017 PATIENT NAME: Manuela Boyce MR #: [id number] BIRTHDATE: 1935 ENDOSCOPIST: Aleksey Cortez MD ORDER #: [id number] HOTEL RECEPTIONIST: Jackie Fitzgerald and Nancy Liu STATUS: inpatient INDICATIONS: The patient is a 81 yr old female here for a colonoscopy due to hematochezia and anemia, non-specific Colonoscopy with control of bleeding MEDICATIONS: None and Per Anesthesia. PREP QUALITY: The Harris Bowel Prep Score was Right colon 2, Mid colon 2, and Left colon 2. Total = 6. PREP TYPE:GoLytely ESTIMATED BLOOD LOSS: None CONSENT: The patient understands the risks and benefits of the procedure and understands that these risks include, but are not limited to: sedation, allergic reaction, infection, perforation and/or bleeding. Alternative means of evaluation and treatment include, among others: physical exam, x-rays, and/or surgical intervention. The patient elects to proceed with this endoscopic procedure. medical equipment was checked for proper function. Hand hygiene and appropriate measures for infection prevention was taken. After the risks, benefits and alternatives of the procedure were thoroughly explained, Informed consent was verified, confirmed and timeout was successfully executed by the treatment team. A digital exam revealed external hemorrhoids The Pentax EC-[id number] endoscope was introduced through the anus and advanced to the cecum, which was identified by both the appendix and ileocecal valve. The instrument was then slowly withdrawn as the colon was fully examined. COLON FINDINGS: Severe diverticulosis was noted throughout the entire examined colon. No bleeding was noted from the diverticulosis. A 2 x 2cm patch of abnormal mucosa was found at the cecum. The mucosa was congested, edematous and erythematous. Multiple biopsies were performed using cold forceps. Two polypoid shaped semi-pedunculated polyps measuring 10 mm in size were found in the sigmoid colon. A polypectomy was performed using snare cautery. The resection was complete and the polyp tissue was completely retrieved. Retroflexed views revealed internal hemorrhoids and Retroflexed views revealed medium internal hemorrhoids The scope was then completely withdrawn from the patient and the procedure terminated. PROCEDURE WITHDRAWAL TIME:10minutes ADVERSE EVENTS: There were no complications. IMPRESSIONS: 1. Severe diverticulosis was noted throughout the entire examined colon 2. 2 x 2cm abnormal mucosa was found at the cecum; The mucosa was congested, edematous and erythematous; multiple biopsies were performed using cold forceps 3. Two semi-pedunculated polyps were found in the sigmoid colon; polypectomy was performed using snare cautery 4. Retroflexed views revealed internal hemorrhoids 5. Retroflexed views revealed medium internal hemorrhoids 6. Revealed external hemorrhoids RECOMMENDATIONS: 1. Await biopsy results. Biopsy results will not be ready for 7-10 days. If you don't hear from us in two weeks, call our office for results. 2. Continue surveillance 3. Yearly hemoccult 4. No seeds, nuts and popcorn in diet RECALL: Return 1 year Colonoscopy, pending biopsy results Aleksey Cortez MD eSigned: Aleksey Cortze MD 11/05/2017 10:44 AM EGD PROCEDURE REPORT EXAM DATE: 11/05/2017 PATIENT NAME: Manuela Boyce MR #: [id number] BIRTHDATE: 1935 ATTENDING: Aleksey Cortez MD ORDER #: [id number] HOTEL RECEPTIONIST: Jackie Fitzgerald and Nancy Liu STATUS: inpatient INDICATIONS: The patient is a 81 yr old female here for an EGD due to iron deficiency anemia PROCEDURE PERFORMED: EGD w/ biopsy MEDICATIONS: None and Per Anesthesia. TOPICAL ANESTHETIC: CONSENT: The patient understands the risks and benefits of the procedure and understands that these risks include, but are not limited to: sedation, allergic reaction, infection, perforation and/or bleeding. Alternative means of evaluation and treatment include, among others: physical exam, x-rays, and/or surgical intervention. The patient elects to proceed with this endoscopic procedure. medical equipment was checked for proper function. Hand hygiene and appropriate measures for infection prevention was taken. After the risks, benefits and alternatives of the procedure were thoroughly explained, Informed consent was verified, confirmed and timeout was successfully executed by the treatment team. The patient was anesthetized with topical anesthesia and the EC-[id number] (Pedi C) endoscope was introduced through the mouth and advanced to the second portion of the duodenum. Retroflexed views revealed an ulcer The gastroscope was then slowly withdrawn and removed. ESOPHAGUS: A near circumferential ulcerated and fungating mass, measuring 3 X 3cm in size, with friable surfaces was found in the distal esophagus. Multiple biopsies were performed using cold forceps. Sample sent for histology. STOMACH: A large non-bleeding, deep and clean-based ulcer with surrounding edema was found in the gastric fundus. DUODENUM: The duodenal mucosa appeared normal in the bulb and second portion of the duodenum. ADVERSE EVENTS: There were no complications. IMPRESSIONS: 1. Near circumferential mass, measuring 3 X 3cm in size, was found in the distal esophagus; multiple biopsies were performed 2. Large ulcer was found in the gastric fundus 3. Normal duodenal mucosa in the bulb and second portion of the duodenum 4. Retroflexed views revealed an ulcer RECOMMENDATIONS: 1. Await biopsy results. Biopsy results will not be ready for 7-10 days. If you don't hear from us in two weeks, call our office for biopsy results. 2. Anti-reflux regimen 3. Continue PPI PATIENT CONDITION: stable DISPOSITION: Inpatient REPEAT EXAM: Return 3 months EGD pending biopsy results Aleksey Cortez MD eSigned: Aleksey Cortez MD 11/05/2017 10:20 AM Assessment and Plan - Assessment (1) Lower GI bleed Code(s): K92.2 - Gastrointestinal hemorrhage, unspecified Status: Acute (2) Atrial fibrillation with rapid ventricular response Code(s): I48.91 - Unspecified atrial fibrillation Status: Acute (3) GI bleeding Code(s): K92.2 - Gastrointestinal hemorrhage, unspecified Status: Acute (4) Anemia Code(s): D64.9 - Anemia, unspecified Status: Acute (5) Depression Code(s): F32.9 - Major depressive disorder, single episode, unspecified Status : Acute (6) Elevated troponin Code(s): R74.8 - Abnormal levels of other serum enzymes Status: Acute - Plan Poorly differentiated gastric adenocarcinoma Oncology consult DONE- PATIENT INTERESTED IN HOSPICE- BUT WANTS TO GO HOME WILL GO HOME WITH [facility] AND FAMILY Acute encephalopathy-resolved History of previous stroke/TIA CT head: Old meningioma parafalcine region on the left with subacute stroke Aspirin held due to GI bleed Respiratory insufficiency-resolved Continue DuoNeb every 6 hours PRN Chest x-ray did show evidence of pulmonary vascular congestion but clinically patient is not shortness of breath CTA negative for PE Atrial fibrillation with RVR-resolved echo with EF 55% Anticoagulation held due to GI bleed. She remains in normal sinus rhythm Continue Cardizem, continue telemetry Appreciate cardiology consult Lower GI bleed, anemia s/p EGD with distal esophageal mass and gastric ulcer POORLY DIFFERENTIATED GASTRIC ADENOCARCINOMA s/p colonoscopy; s/p polypectomy sigmoid colon with abnormal cecum Pathology shows tubular adenoma, precancerous finding but typically benign s/p PRBC transfusion, continue to follow periodic CBC Appreciate gastroenterology consult hypophosphatemia, hyponatremia Continue fluid restriction Continue to replace as needed Follow with lab work DVT prophylaxis Ambulation and SCDs, chemoprophylaxis held due to GI bleed Discharge Planning CONSIDERING HOSPICE DOES NOT WANT HOSPICE WANTS TO GO HOME WITH [facility] AT [place] Code Status: FULL CODE Discussed Condition With: RN AND PT AND FAMILY AND CM Discharge Planning: [place] HOME WITH [facility]
--- NOTE | 2017-11-13 13:21 | P.DS ---
Date of admission: 11/03/17 15:07 Primary care physician: UNKNOWN Attending physician on discharge: Dayton Villegas Anticipated date of discharge: 11/13/17 Brief History from admission: Patient is an 81 year old female with past medical history significant for TIA, who was brought to the ER today with complaint of shortness of breath, altered mental status, abdominal pain and rectal bleeding. Apparently patient was feeling well yesterday, but today morning she was complaining of shortness of breath per her son. [facility] was called and patient was found to be altered with blood on her clothing. On route EMS noted that patient developed A. fib with RVR and questionable facial droop. ER workup for acute stroke was essentially negative. 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 Stool was grossly positive for blood in the ED. Hemoglobin came back at 10.1. CMP showed BUN 47/ creat 0.85. CT abdomen pelvis did not show any evidence of acute ischemic colitis or diverticulitis. Was also noted to have lactic acid was elevated at 3.5. Patient did received 2 L normal saline bolus, and was placed on Protonix infusion per GI recommendation I evaluated the patient in the ED. she is lying in the bed speech is slightly slurred but daughter at the bedside states this is chronic. No [place] bleeding noted at this time. I discussed with Dr. Moody. Patient is refusing EGD/ colonoscopy at this time. I discussed the possibility of ischemic colitis versus diverticulitis. Patient wants to wait 24 hours and then reassess the need for endoscopy Patient update on day of discharge: 9-5 PATIENT IS INTERESTED IN HOME WITH HOSPICE CARE HOSPICE TO SEE TOMORROW NOT WANTING AGGRESSIVE TREATMENT AT THIS TIME PER ELLIS NIX TO MEET WITH HOSPICE TOMORROW 9-6 DOES NOT WANT HOSPICE WANTS TO GO HOME WITH FAMILY AND HAVE [facility] PT AND OT AND RN REPLACE POTASSIUM DC TO HOME TODAY DS: Diagnosis - Discharge Diagnosis (1) Lower GI bleed Status: Acute (2) Atrial fibrillation with rapid ventricular response Status: Acute (3) GI bleeding Status: Acute (4) Anemia Status: Acute (5) Depression Status: Acute (6) Elevated troponin Status: Acute (7) Gastric adenocarcinoma Status: Acute DS: Medications - Discharge Medications Prescriptions: diltiazem HCl [Cardizem CD] 240 mg PO DAILY #30 cap lisinopril 10 mg PO DAILY #30 tab pantoprazole 40 mg PO BID #60 tab polyethylene glycol 3350 17 gm PO DAILY #30 ea tramadol [Ultram] 50 mg PO Q6H PRN #60 tab PRN Reason: Acute Pain DS: Summary Hospital Course: Patient is an 81 year old female with past medical history significant for TIA, who was brought to the ER today with complaint of shortness of breath, altered mental status, abdominal pain and rectal bleeding. Apparently patient was feeling well yesterday, but today morning she was complaining of shortness of breath per her son. [facility] was called and patient was found to be altered with blood on her clothing. On route EMS noted that patient developed A. fib with RVR and questionable facial droop. ER workup for acute stroke was essentially negative. 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 Stool was grossly positive for blood in the ED. Hemoglobin came back at 10.1. CMP showed BUN 47/ creat 0.85. CT abdomen pelvis did not show any evidence of acute ischemic colitis or diverticulitis. Was also noted to have lactic acid was elevated at 3.5. Patient did received 2 L normal saline bolus, and was placed on Protonix infusion per GI recommendation I evaluated the patient in the ED. she is lying in the bed speech is slightly slurred but daughter at the bedside states this is chronic. No [place] bleeding noted at this time. I discussed with Dr. Moody. Patient is refusing EGD/ colonoscopy at this time. I discussed the possibility of ischemic colitis versus diverticulitis. Patient wants to wait 24 hours and then reassess the need for endoscopy Patient had GI bleed. Underwent EGD with biopsies. 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 Nix of oncology. Did not want any treatment. Was offered possible radiation and chemotherapy patient refused all of this. Wants to go home today with home health care and to be with her family. Patient has not signed up with hospice yet and has not made herself a DNR yet - Time Spent with Patient Total time spent providing and/or coordinating discharge services: Greater than 30 minutes - Quality: VTE Deep Vein Thrombosis/Pulmonary Embolism Present on Admission: No Exam Vital signs: Vital Signs 11/12/17 16:00 11/12/17 20:00 11/13/17 00:00 Temperature 97.9 F 98.8 F 98.4 F Pulse Rate 86 71 75 Respiratory Rate 16 18 18 Blood Pressure 179/75 H 156/71 H 156/71 H Pulse Oximetry 93 L 92 L 93 L 11/13/17 04:00 11/13/17 08:00 11/13/17 12:00 Temperature 97.3 F L 97.9 F 98.3 F Pulse Rate 67 62 70 Respiratory Rate 19 18 17 Blood Pressure 157/72 H 177/82 H 179/79 H Pulse Oximetry 92 L 92 L 92 L Intake & Output 11/12/17 11/13/17 11/13/17 18:59 06:59 18:59 Intake Total 1000 / 1000 1680 / 1680 Output Total 850 / 850 Balance 1000 / 1000 830 / 830 Weight 57.3 kg Intake: IV 1000 / 1000 1000 / 1000 NS Inj 1,000 ML @ 84 mls/hr IV. 1000 / 1000 1000 / 1000 CONT .[id number] [facility] Rx#:[id number] Oral 680 / 680 Output: Urine 850 / 850 Other: Date of Last Bowel Movement 11/12/17 # Bowel Movements 1 Narrative: GENERAL: NAD, AAOx3 SKIN: Warm and dry. HEAD: Atraumatic. Normocephalic. EYES: Pupils equal and round. No scleral icterus. No injection or drainage. ENT: No nasal bleeding or discharge. Mucous membranes pink and moist. NECK: Trachea midline. No JVD. CARDIOVASCULAR: Normal sinus rhythm. 1/6 crescendo-decrescendo murmur to the RSB RESPIRATORY: No accessory muscle use. Clear to auscultation. Breath sounds equal bilaterally. GASTROINTESTINAL: Abdomen soft, non-tender, nondistended. Hepatic and splenic margins not palpable. MUSCULOSKELETAL: Extremities without clubbing, cyanosis, or edema. No obvious deformities. NEUROLOGICAL: Awake and alert. No obvious cranial nerve deficits. Motor grossly within normal limits. Five out of 5 muscle strength in the arms and legs. Normal speech. PSYCHIATRIC: Appropriate mood and affect; insight and judgment normal. Results Procedures completed during hospitalization: COLONOSCOPY PROCEDURE REPORT EXAM DATE: 11/05/2017 PATIENT NAME: Manuela Boyce MR #: [id number] BIRTHDATE: 1935 ENDOSCOPIST: Aleksey Cortez MD ORDER #: [id number] SALES INTERN: Jackie Fitzgerald and Nancy Liu STATUS: inpatient INDICATIONS: The patient is a 81 yr old female here for a colonoscopy due to hematochezia and anemia, non-specific Colonoscopy with control of bleeding MEDICATIONS: None and Per Anesthesia. PREP QUALITY: The [place] Bowel Prep Score was Right colon 2, Mid colon 2, and Left colon 2. Total = 6. PREP TYPE:GoLytely ESTIMATED BLOOD LOSS: None CONSENT: The patient understands the risks and benefits of the procedure and understands that these risks include, but are not limited to: sedation, allergic reaction, infection, perforation and/or bleeding. Alternative means of evaluation and treatment include, among others: physical exam, x-rays, and/or surgical intervention. The patient elects to proceed with this endoscopic procedure. medical equipment was checked for proper function. Hand hygiene and appropriate measures for infection prevention was taken. After the risks, benefits and alternatives of the procedure were thoroughly explained, Informed consent was verified, confirmed and timeout was successfully executed by the treatment team. A digital exam revealed external hemorrhoids The Pentax EC-[id number] endoscope was introduced through the anus and advanced to the cecum, which was identified by both the appendix and ileocecal valve. The instrument was then slowly withdrawn as the colon was fully examined. COLON FINDINGS: Severe diverticulosis was noted throughout the entire examined colon. No bleeding was noted from the diverticulosis. A 2 x 2cm patch of abnormal mucosa was found at the cecum. The mucosa was congested, edematous and erythematous. Multiple biopsies were performed using cold forceps. Two polypoid shaped semi-pedunculated polyps measuring 10 mm in size were found in the sigmoid colon. A polypectomy was performed using snare cautery. The resection was complete and the polyp tissue was completely retrieved. Retroflexed views revealed internal hemorrhoids and Retroflexed views revealed medium internal hemorrhoids The scope was then completely withdrawn from the patient and the procedure terminated. PROCEDURE WITHDRAWAL TIME:10minutes ADVERSE EVENTS: There were no complications. IMPRESSIONS: 1. Severe diverticulosis was noted throughout the entire examined colon 2. 2 x 2cm abnormal mucosa was found at the cecum; The mucosa was congested, edematous and erythematous; multiple biopsies were performed using cold forceps 3. Two semi-pedunculated polyps were found in the sigmoid colon; polypectomy was performed using snare cautery 4. Retroflexed views revealed internal hemorrhoids 5. Retroflexed views revealed medium internal hemorrhoids 6. Revealed external hemorrhoids RECOMMENDATIONS: 1. Await biopsy results. Biopsy results will not be ready for 7-10 days. If you don't hear from us in two weeks, call our office for results. 2. Continue surveillance 3. Yearly hemoccult 4. No seeds, nuts and popcorn in diet RECALL: Return 1 year Colonoscopy, pending biopsy results Aleksey Cortez MD eSigned: Aleksey Cortez MD 11/05/2017 10:44 AM EGD PROCEDURE REPORT EXAM DATE: 11/05/2017 PATIENT NAME: Manuela Boyce MR #: [id number] BIRTHDATE: 1935 ATTENDING: Aleksey Cortez MD ORDER #: [id number] SALES INTERN: Jackie Fitzgerald and Nancy Liu STATUS: inpatient INDICATIONS: The patient is a 81 yr old female here for an EGD due to iron deficiency anemia PROCEDURE PERFORMED: EGD w/ biopsy MEDICATIONS: None and Per Anesthesia. TOPICAL ANESTHETIC: CONSENT: The patient understands the risks and benefits of the procedure and understands that these risks include, but are not limited to: sedation, allergic reaction, infection, perforation and/or bleeding. Alternative means of evaluation and treatment include, among others: physical exam, x-rays, and/or surgical intervention. The patient elects to proceed with this endoscopic procedure. medical equipment was checked for proper function. Hand hygiene and appropriate measures for infection prevention was taken. After the risks, benefits and alternatives of the procedure were thoroughly explained, Informed consent was verified, confirmed and timeout was successfully executed by the treatment team. The patient was anesthetized with topical anesthesia and the EC-[id number] (Pedi C) endoscope was introduced through the mouth and advanced to the second portion of the duodenum. Retroflexed views revealed an ulcer The gastroscope was then slowly withdrawn and removed. ESOPHAGUS: A near circumferential ulcerated and fungating mass, measuring 3 X 3cm in size, with friable surfaces was found in the distal esophagus. Multiple biopsies were performed using cold forceps. Sample sent for histology. STOMACH: A large non-bleeding, deep and clean-based ulcer with surrounding edema was found in the gastric fundus. DUODENUM: The duodenal mucosa appeared normal in the bulb and second portion of the duodenum. ADVERSE EVENTS: There were no complications. IMPRESSIONS: 1. Near circumferential mass, measuring 3 X 3cm in size, was found in the distal esophagus; multiple biopsies were performed 2. Large ulcer was found in the gastric fundus 3. Normal duodenal mucosa in the bulb and second portion of the duodenum 4. Retroflexed views revealed an ulcer RECOMMENDATIONS: 1. Await biopsy results. Biopsy results will not be ready for 7-10 days. If you don't hear from us in two weeks, call our office for biopsy results. 2. Anti-reflux regimen 3. Continue PPI PATIENT CONDITION: stable DISPOSITION: Inpatient REPEAT EXAM: Return 3 months EGD pending biopsy results Aleksey Cortez MD eSigned: Aleksey Cortez MD 11/05/2017 10:20 AM Completed studies during hospitalization: Pending at discharge 11/05/17 16:47 Surgical [PTH] Routine Labs on day of discharge: Labs from last 24 hours 11/13/17 11/13/17 05:53 05:53 WBC 7.0 RBC 3.89 L Hgb 12.1 Hct 35.4 MCV 91.1 MCH 31.1 MCHC 34.1 RDW 14.8 Plt Count 216 MPV 8.4 Neut % (Auto) 66.8 Lymph % (Auto) 21.5 Perkins % (Auto) 8.5 H Eos % (Auto) 2.0 Baso % (Auto) 1.2 Neut # (Auto) 4.7 Lymph # (Auto) 1.5 Perkins # (Auto) 0.6 Eos # (Auto) 0.1 Baso # (Auto) 0.1 WBC Differential . Differential Comment Auto diff final Sodium 146 H Potassium 3.4 L Chloride 110 H Carbon Dioxide 26.0 Anion Gap 10 BUN 10 Creatinine 0.46 L Estimated GFR Greater than 89 Random Glucose 97 Calcium 8.2 L Phosphorus 2.9 Magnesium 2.2 Total Bilirubin 0.7 AST 14 L ALT 15 Alkaline Phosphatase 56 Total Protein 5.9 L Albumin 2.5 L - Impressions ITS Impressions Head MRI 11/03/17 00:00 CONCLUSION: 1. Persistent extra-axial mass in the anterior inferior medial left frontal region thought to represent a meningioma measuring up to 2.6 cm. There is increased signal seen in the adjacent left frontal white matter. Mass effect on the ventricle and cortical sulci is not seen suggesting this could be related to underlying gliosis versus edema without significant effacement of the cortical sulci or mass effect on the left lateral ventricle. 2. Suspected areas of prior infarction at the left caudate and left external capsule region. 3. Mild periventricular small vessel ischemic change in the white matter. Chest X-Ray 11/03/17 12:08 CONCLUSION: 1. Mild patchy airspace disease in the left lower lung zone which may be projectional or reflect atelectasis. Head CT 11/03/17 12:08 CONCLUSION: 1. 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 Stroke could be similar between 3 and 7 days in age. 2. I have no prior studies for comparison. Venous Doppler Study 11/03/17 12:12 CONCLUSION: 1. The study is negative for bilateral lower extremity deep venous thrombosis. Chest CTA 11/03/17 13:37 CONCLUSION: 1. Moderate congestive failure with no central pulmonary emboli Discharge Plan - Discharge Disposition Patient Disposition: /Home Health Service - Discharge Condition Condition: Fair - Discharge Order Discharge Orders: Discharge Order (Routine); Ordered 11/13/17 Ordered By: Dayton Villegas - Discharge Details Anticipated Discharge Date: 11/13/17 Discharge Comment: [facility] Phys[facility] Team Primary Care Provider: UNKNOWN, Attending Provider: Dayton Villegas Other Providers: Aleksey Cortez MD ; aMrk Correa DO ; Latonya Mccormick MD ; [employer] ; [facility],Agency ; Darron Nix MD
--- NOTE | 2017-11-13 13:25 | P.DCO ---
- Diagnosis (1) Altered mental state - Physical Therapy Order: Evaluate and treat, Improve ambulation, Strength and gait training - Occupational Therapy Order: Evaluate and treat, Improve ADL, Gross motor coordination, Fine motor coordination - Home Health Nursing Order: Medical education, Signs/symptoms of disease process, Medication education-adverse effect, Nursing assessment with vital signs, Telehealth - Home Health Aide Order: To assist in: Bathing and personal care, rivet sorter and meal prep - Certification I have seen patient Manuela Boyce on 11/13/17. My clinical findings support the need for the requested home health care services because: Limited mobility due to disease progression, Deconditioned with increased weakness, Limited ability to care for self, Impaired cognition/judgement, High risk of falls I certify that my clinical findings support that this patient is homebound because: Impaired cognitive ability/safety, Unsteady gait/balance (1) Altered mental state Qualifiers: Altered mental status type: unspecified Qualified Code(s): R41.82 - Altered mental status, unspecified
[2017-11-13 16:27] VITALS: PULSE 81
--- NOTE | 2017-11-13 18:07 | P.PNCA ---
Subjective Interval history: No events overnight Discharge planning Wants to go home, no hospice Physical Exam Vital signs: Vital Signs 11/12/17 20:00 11/13/17 00:00 11/13/17 04:00 Temperature 98.8 F 98.4 F 97.3 F L Pulse Rate 71 75 67 Respiratory Rate 18 18 19 Blood Pressure 156/71 H 156/71 H 157/72 H Pulse Oximetry 92 L 93 L 92 L 11/13/17 08:00 11/13/17 12:00 Temperature 97.9 F 98.3 F Pulse Rate 62 81 Respiratory Rate 18 17 Blood Pressure 177/82 H 179/79 H Pulse Oximetry 92 L 92 L Intake & Output 11/12/17 11/13/17 11/13/17 18:59 06:59 18:59 Intake Total 1000 / 1000 1680 / 1680 750 / 750 Output Total 850 / 850 Balance 1000 / 1000 830 / 830 750 / 750 Weight 57.3 kg Intake: IV 1000 / 1000 1000 / 1000 750 / 750 NS Inj 1,000 ML @ 84 mls/hr IV. 1000 / 1000 1000 / 1000 750 / 750 CONT .[id number] [facility] Rx#:[id number] Oral 680 / 680 Output: Urine 850 / 850 Other: Date of Last Bowel Movement 11/12/17 # Bowel Movements 1 Narrative: GENERAL: NAD, AAOx3 SKIN: Warm and dry. HEAD: Atraumatic. Normocephalic. EYES: Pupils equal and round. No scleral icterus. No injection or drainage. ENT: No nasal bleeding or discharge. Mucous membranes pink and moist. NECK: Trachea midline. No JVD. CARDIOVASCULAR: Normal sinus rhythm. 1/6 crescendo-decrescendo murmur to the RSB RESPIRATORY: No accessory muscle use. Clear to auscultation. Breath sounds equal bilaterally. GASTROINTESTINAL: Abdomen soft, non-tender, nondistended. Hepatic and splenic margins not palpable. MUSCULOSKELETAL: Extremities without clubbing, cyanosis, or edema. No obvious deformities. NEUROLOGICAL: Awake and alert. No obvious cranial nerve deficits. Motor grossly within normal limits. Five out of 5 muscle strength in the arms and legs. Normal speech. PSYCHIATRIC: Appropriate mood and affect; insight and judgment normal. Assessment and Plan - Assessment (1) Lower GI bleed Code(s): K92.2 - Gastrointestinal hemorrhage, unspecified Status: Acute (2) Atrial fibrillation with rapid ventricular response Code(s): I48.91 - Unspecified atrial fibrillation Status: Acute (3) GI bleeding Code(s): K92.2 - Gastrointestinal hemorrhage, unspecified Status: Acute (4) Anemia Code(s): D64.9 - Anemia, unspecified Status: Acute (5) Depression Code(s): F32.9 - Major depressive disorder, single episode, unspecified Status : Acute (6) Elevated troponin Code(s): R74.8 - Abnormal levels of other serum enzymes Status: Acute - Plan 1) GI bleed Found to have a mass with ulcer in distal stomach Adenocarcinoma 2) Afib with RVR on admission Currently sinus rhythm Cardizem PO Can be changed to Cardizem CD 240mg on discharge Most likely due to overall illness Not an anticoagulation candidate due to GI mass/bleed If possible would place on ASA 81mg, but might not be possible with current mass/ulcer 3) Elevated troponins Most likely Type 2 in nature Con't medical management per her wishes 4) HTN 5) Agree with getting her home
== END 2017-11-13 17:08 | disposition home health service (06) ==
LOC: NEPC 11:44 → NEDA 15:07 → N03 22:13 → N04 11-07 21:37
PROVIDERS: ADMIT Hospitalist; ATTEND Hospitalist
PROC: COLONOS (2017-11-05 10:00)
PROC: PANENDO (2017-11-05 10:00)